=== PATIENT | female | born 1950 | race African-American/Black ===

== ENCOUNTER 2016-06-04 14:08 | Emergency (ER) | payer OTHER ==
[~2016-06-04] VITALS: Ht 167.6 cm; Wt 74.8 kg
[2016-06-04 14:09] VITALS: BP 117/66
[2016-06-04] MEDS ORDERED: FLONASE 0.05%50 MCG NASAL (14:24)
[2016-06-04] MEDS ORDERED: MAXZIDE-25 MG1 EACH PO (14:25)
[2016-06-04] MEDS ORDERED: OMEPRAZOLE20 M1 PO (14:25)
[2016-06-04] MEDS ORDERED: LISINOPRIL5 MG PO (14:25)
[2016-06-04] MEDS ORDERED: ZOCOR20 MG PO (14:25)
[2016-06-04] MEDS ORDERED: NAPROSYN500 MG PO (14:26)
[2016-06-04] MEDS ORDERED: ZYRTEC10 M5 PO (14:26)
[2016-06-04] MEDS ORDERED: NORCO 5-325 TA1 EACH PO (14:35)
[2016-06-04] MEDS ORDERED: FLEXERIL PO (14:35)
== END 2016-06-04 14:52 | disposition home or self-care (01) ==
LOC: ER 14:08
DX: S39.012A Strain of muscle, fascia and tendon of lower back, initial encounter (principal); I10 Essential (primary) hypertension; Z90.710 Acquired absence of both cervix and uterus; Z88.0 Allergy status to penicillin; Z88.1 Allergy status to other antibiotic agents; F17.210 Nicotine dependence, cigarettes, uncomplicated; F10.99 Alcohol use, unspecified with unspecified alcohol-induced disorder; X58.XXXA Exposure to other specified factors, initial encounter; Y93.89 Activity, other specified; Y92.89 Other specified places as the place of occurrence of the external cause; Y99.8 Other external cause status

== ENCOUNTER 2016-08-24 15:00 | Emergency (ER) | payer OTHER ==
[~2016-08-24] VITALS: Ht 167.6 cm; Wt 72.6 kg
--- NOTE | ~2016-08-24 | S ---
[facility] [place] [address] SURGICAL PATH RPT PROCEDURE Name: LAZARA ROSA Room #: DEP [facility].#: [id number] Admission: 08/24/16 Date of : 46 Discharge: 08/24/16 Report #: [id number] Path Case #: [id number] PATHOLOGY REPORT COLLECTION DATE: 08/24/2016 RECEIVED DATE: 08/25/2016 SUBMITTING PHYS: Nelli Pérez M.D. OTHER PHYS: Dr. Hany Chi SPECIMEN(S) RECEIVED: A.Peripheral smear * * * * * * * * * * * * FINAL DIAGNOSIS: Peripheral blood smear: - Marked absolute mature lymphocytosis. (see comment) COMMENT: Overall, the peripheral blood has a marked absolute mature lymphocytosis. The hemoglobin and platelet counts are within the normal reference ranges. The etiology of the findings is unclear based entirely on slide review. It is consistent with the patient's reported history of chronic lymphocytic leukemia / small lymphocytic lymphoma (diagnosed elsewhere). Flow cytometric immunophenotypic analysis may provide additional information to confirm the diagnosis, if clinically indicated. Correlation with clinical history and additional laboratory data is recommended. (CLW:; d/t: 08/25/16) PATHOLOGIST: Nelli Pérez M.D. REPORT ELECTRONICALLY SIGNED BY: Nelli Pérez M.D. DATE/TIME: 08/25/2016 23:54 * * * * * * * * * * * * MICROSCOPIC DESCRIPTION: CBC Data (08/24/16): WBC 55,700 /uL, RBC 3.83, hemoglobin 12.6 g/dL, hematocrit 37.1%, MCV 96.7 fL, MCH 32.8 pg, MCHC 33.9 g/dL, RDW 13.6%, and platelet count 215,000 /uL. Manual white blood cell differential (per pathologist): segs 9%, lymphs 85%, monos 4%, and eos 2%. Peripheral Blood Smear: Cytomorphological examination of the Alas's stained peripheral blood smear confirms the provided data. Red blood cells are normocytic and are without significant anisopoikilocytosis. No schistocytes or microspherocytes are seen. White blood cells are markedly increased in number. They are predominantly lymphocytes that are small, round, and mature appearing with condensed chromatin [address] [address] SURGICAL PATH RPT PROCEDURE Name: LAZARA ROSA Room #: DEP Kb.#: [id number] Admission: 08/24/16 Date of : 46 Discharge: 08/24/16 Report #: [id number] Path Case #: [id number] and scant cytoplasm. Smudge cells are seen. No significant large lymphoid (prolymphocyte) component is identified. Granulocytes are predominantly segmented neutrophils and are without significant dyspoiesis or significant left shift. Monocytes are mature. Platelets are adequate in number and mainly normal in morphology with rare larger platelets noted. CLINICAL HISTORY: 65 year-old woman with leukocytosis/absolute lymphocytosis. Morphologic review of the peripheral blood smear is requested by the [facility] technologist. INITIAL CPT CODE(S): A; NC Professional services performed by [facility] at [facility] [address], [place] [address] Technical services performed by [facility] at [address] [place] [address], [address], [place] [address]. [facility] [address] [place] [address] PHONE: [phone] DIRECTOR: Beto Eduardo M.D. * * * END OF REPORT * * *
--- NOTE | ~2016-08-24 | EKG ---
[place] [address] [place] [address] ELECTROCARDIOGRAM REPORT Name: LAZARA ROSA Room #: [facility] JOSEPHINE Mccain#: [id number] Admission: 08/24/16 Attend Phys: Discharge: Date of : 46 Report #: [id number] THIS REPORT FOR: //name// [facility] ED Test Date: 2016-08-24 Test Time: 15:51:46 Pat Name: LAZARA ROSA Department: Room: Gender: Pharmacologist: CORAZON : 1950 Requested By: Zelda Dawkins Order Number: [id number] MD: Chino Dowling Measurements Intervals [place] Rate: 94 P: 50 [place]: 189 QRS: 31 QRSD: 67 T: 39 QT: 332 QTc: 416 Interpretive Statements Sinus rhythm Atrial premature complexes No previous ECG available for comparison Electronically Signed On 08-24-2016 16:06:27 CDT by Chino Dowling [email or web address] <ELECTRONICALLY SIGNED> By: Chino Dowling MD, [facility] 08/24/16 1606 1551 1551 Chino Dowling MD, FACC /EPI
[~2016-08-24 15:00] MED LIST: FLEXERIL PO; FLONASE 0.05%50 MCG NASAL; LISINOPRIL5 MG PO; MAXZIDE-25 MG1 EACH PO; NAPROSYN500 MG PO; NORCO 5-325 TA1 EACH PO; OMEPRAZOLE20 M1 PO; ZOCOR20 MG PO; ZYRTEC10 M5 PO
[2016-08-24 15:44] LABS: HEMATOCRIT 37.1 % (37.0-47.0); HEMOGLOBIN 12.6 gm/dL (12.0-15.0); MCH 32.8 pg (26.0-34.0); MCHC 33.9 g/dL (28.0-37.0); MCV 96.7 fL (80.0-100.0); PLATELET COUNT 215 thou/uL (150-400); RBC 3.83 mil/uL (4.20-5.00); RDW 13.6 % (10.5-14.5)
[2016-08-24 15:49] LABS: MANUAL DIFF YES
[2016-08-24 15:50] LABS: WBC 55.7 thou/uL (4.0-11.0)
[2016-08-24 15:54] LABS: ANION GAP 11 mmol/L (7-16); BUN 36 mg/dL (7-18); CALCIUM 9.2 mg/dL (8.5-10.1); CHLORIDE 106 mmol/L (98-107); CO2 24 mmol/L (21-32); CREATININE 0.9 mg/dL (0.6-1.0); GLUCOSE 120 mg/dL (74-106); POTASSIUM 4.2 mmol/L (3.5-5.1); SODIUM 141 mmol/L (136-145)
[2016-08-24 16:01] LABS: ALBUMIN 3.9 g/dL (3.4-5.0); ALKALINE PHOSPHATASE 69 U/L (46-116); SGOT 18 U/L (15-37); SGPT 20 U/L (30-65); TOTAL BILIRUBIN 0.7 mg/dL (<0.1-1.0); TOTAL PROTEIN 6.7 g/dL (6.4-8.2); TROPONIN-I < 0.04 ng/mL (<0.04-0.07)
[2016-08-24 16:04] LABS: PROTIME 10.6 Seconds (9.3-11.4)
[2016-08-24 16:10] LABS: MAGNESIUM 1.8 mg/dL (1.8-2.4)
[2016-08-24 16:47] VITALS: BP 115/69
[2016-08-24 17:56] LABS: TOTAL CELL COUNT 100
== END 2016-08-24 18:48 | disposition home or self-care (01) ==
LOC: ER 15:00
PROVIDERS: Emergency Medicine; Physician Assistant
DX: R55 Syncope and collapse (principal); C91.10 Chronic lymphocytic leukemia of B-cell type not having achieved remission; E86.0 Dehydration; I10 Essential (primary) hypertension; F10.99 Alcohol use, unspecified with unspecified alcohol-induced disorder; Z90.710 Acquired absence of both cervix and uterus; Z88.1 Allergy status to other antibiotic agents; Z88.0 Allergy status to penicillin; Z87.891 Personal history of nicotine dependence

== ENCOUNTER 2018-07-09 09:03 | Emergency (ER) | payer OTHER ==
[~2018-07-09] VITALS: Ht 167.6 cm; Wt 68.5 kg
[2018-07-09] MEDS ORDERED: CELEBREX 200 M200 M1 PO (09:14)
[2018-07-09] MEDS ORDERED: TRAMADOL 50 MG50 MG PO (10:21)
[2018-07-09] MEDS ORDERED: ACYCLOVIR 800800 MG PO (10:21)
[2018-07-09] MEDS ORDERED: PREDNISONE 20 M20 MG PO (10:21)
[2018-07-09 10:30] VITALS: BP 148/56
[2018-07-09] MEDS ORDERED: ACETAMINOPHEN-1 EAC1 PO (10:46)
== END 2018-07-09 10:30 | disposition home or self-care (01) ==
LOC: ER 09:03
DX: B02.9 Zoster without complications (principal); C91.10 Chronic lymphocytic leukemia of B-cell type not having achieved remission; I10 Essential (primary) hypertension; Z87.891 Personal history of nicotine dependence; Z88.6 Allergy status to analgesic agent; Z88.1 Allergy status to other antibiotic agents; Z88.0 Allergy status to penicillin; Z90.710 Acquired absence of both cervix and uterus

== ENCOUNTER → 2018-09-10 | Outpatient (CLI) | payer OTHER ==
[~2018-09-10] VITALS: Ht 167.6 cm; Wt 67.1 kg
[~2018-09-10] MED LIST changes: +ACCUNEB SO1.25 MG/1 INH; +ACETAMINOPHEN-1 EAC1 PO; +ACYCLOVIR 800800 MG PO; +AMITRIPTYLINE H10 M3 PO; +CELEBREX 200 M200 M1 PO; +COMPAZINE10 MG PO; +DIPHENHIST50 MG PO; +KLOR-CON 1010 MEQ PO; +LISINOPRIL10 MG PO; +METHADONE HCL5 MG PO; +NEURONTIN 300300 M1 PO; +PREDNISONE 20 M20 MG PO; +PROTONIX40 M1 PO; +TRAMADOL 50 MG50 MG PO; +VIT C PO; +XALATAN2.5 ML OPHTHALMIC; +[UNRECOGNIZED DRUG - OTHER] PO
--- NOTE | ~2018-09-10 | HPC ---
[facility] [place] [address] PAIN MANAGEMENT CONSULTATION Name: LAZARA ROSA Room #: REG [facility] Kalyn#: [id number] Admission: 09/10/18 ������������������ Attend Phys: Jero Prado MD Discharge: ������������������ Date of : 46 Report #: [id number] THIS REPORT FOR: //name// CC: Donato Prado DATE OF SERVICE: 09/10/2018 CHIEF COMPLAINT: Postherpetic neuropathy on the face. HISTORY: The patient is a 68-year-old female who has been referred to the pain clinic for evaluation of an outbreak of herpes zoster involving the left neck and left facial area. She noticed pain in June on the . Notes that the pain started to increase. She was then evaluated and found to have herpes zoster outbreak. She has been referred to the pain clinic to help with pain control. The patient has been taking gabapentin, but found that this is minimally beneficial. She also has used Tylenol No. 3 without significant improvement. She initially noticed some blistering of the rash in the area of her left jaw. It continued to spread down her neck and in the upper shoulder area on the left. She has had some pain involving her ear. Also, has had some pain involving the fingers on her left hand. She has a history of CLL. States that she was having some pain on her shoulder. Underwent an injection with steroids to the right shoulder area. After that, she noticed the onset of the herpes outbreak. Reports that she has been under a significant amount of stress at work. ALLERGIES: PENICILLIN causes swelling, ERYTHROMYCIN, swelling; KEFLEX, swelling, PCN, swelling; LEVAQUIN, nausea and vomiting. CURRENT MEDICATIONS: Calcium 600 mg, pantoprazole 40 mg, simvastatin 20 mg, triamterene/hydrochlorothiazide 37.5/25, lisinopril 5 mg, potassium 10 mEq, fluconazole 50 mcg spray, nasal; Zyrtec 10 mg, Naprosyn 500 mg, vitamin C 1000 mg, multivitamins, Ventolin HFA 2 puffs q.4 hours, prochlorperazine 10 mg t.i.d., gabapentin 100 mg 1-3 tablets t.i.d., Codeine, Tylenol No. 3. PAST MEDICAL HISTORY: 1. Chronic lymphocytic leukemia, hypertension. 2. Dyslipidemia. 3. Allergic rhinitis, seasonal. 4. Chronic GERD. 5. Chronic osteoarthritis. 6. Moderate osteopenia. PAST SURGICAL HISTORY: Tonsils and adenoids 1954, D and C x 2, ; hysterectomy, ovaries [place] 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 REVIEW OF SYSTEMS: Recent weight changes, decreased appetite, fatigue, weakness, headaches, glaucoma/cataracts, chronic sinus problems, loss of appetite, change in bowel movements, frequent headaches, numbness and tingling sensation, depression. LABORATORY DATA: No radiologic imaging is present at the time of our interview. PAIN CLINIC ASSESSMENT/PQRS: 1. History of osteoarthritis in the spine. The patient is not being treated for rheumatoid arthritis. 2. Height 5 feet 6 inches, weight 148 pounds, BMI is 23.9. 3. VITAL SIGNS: Blood pressure 137/78, pulse 75, respiratory rate 14, room air saturation is 100%. 4. Pain intensity 10/23. 5. Fall risk. The patient has not fallen in the last 3 months. 6. Blood thinner. The patient is not on a blood thinning medication. 7. Hypertension. The patient is being treated for hypertension. Opioids greater than 6 weeks. 8. Risk assessment tool, low for opioid use. 9. Functional assessment tool. 10. Recreational drug use. 11. Alcohol: The patient drinks alcoholic beverage on occasion. PHYSICAL EXAMINATION: GENERAL: The patient is a well-developed, well-nourished black female, appears her stated age. She is alert and oriented x 3. Her affect is appropriate. Speech is fluent. HEENT: Normocephalic, atraumatic. Extraocular eye muscles intact. Sclerae nonicteric. Mucous membranes are moist. NECK: Without adenopathy or JVD. The patient is wearing glasses. The patient has an area on her left neck involving the left jaw lateral portion of her neck and anterior portion of her clavicle area, which is discolored. States that these areas are hypersensitive to the touch. Also, complains of some numbness and tingling down into her left hand and fingers. HEART: Regular rate. ABDOMEN: Nontender. Bowel sounds present. EXTREMITIES: Lower Upper extremity muscle strength on the right, judged to be 5-/5 for the major muscle groups. Left side, the patient has some decreased 4+ muscle strength with some numbness and tingling. The patient without significant scoliosis, kyphosis or lordosis. Lower extremity muscle strength is judged to be 5/5 for the major muscle groups in the lower extremity. IMPRESSION: 1. Postherpetic neuralgia involving the left neck, the left face, jaw, neck, [facility] [address] [place] [address] PAIN MANAGEMENT CONSULTATION Name: LAZARA ROSA Room #: REG [facility]#: [id number] Admission: 09/10/18 ������������������ Attend Phys: Jero Prado MD Discharge: ������������������ Date of : 46 Report #: [id number] anterior clavicular area. 2. Chronic lymphocytic leukemia. 3. Hypertension. 4. Dyslipidemia. 5. Allergic rhinitis, seasonal. 6. Gastroesophageal reflux disease. 7. Osteoarthritis. 8. Moderate osteopenia. RECOMMENDATIONS: We discussed treatment options with the patient. At this juncture, we will try a conservative approach. We will have the patient try methadone 5 mg 1 p.o. b.i.d. She will also try amitriptyline. She will increase this medication as directed. Oftentimes, shooting pain, burning pain can be helped with use of amitriptyline. She will also try the methadone medication. If these 2 medications were not successful, we will consider possibility of a stellate ganglion block with local anesthetic to help provide a sympathectomy to help calm down the pain and discomfort. She will follow up in the near future. She will call us if she has any concerns. We would like to thank you for letting us participate in her care. We hope she continues to improve. ��������������������������������������������� ���������������������������������������� By: ��������������������������������������������� 2232 0516 Jero Prado MD /mp
[2018-09-10 09:10] VITALS: BP 137/78
--- NOTE | 2018-09-10 09:39 | NUR ---
Pain Clinic Assessment: 1. History of Osteoarthritis: SPINE History of Rheumatoid Arthritis: NONE 2. Height: 5 ft. 6 in. 167.6 cm. Weight: 148.0 lb. oz. 67.132 kg. Patient's BMI: 23.9 3. Vital Signs: BP: 137/78 Pulse: 75 Resp: 14 Temp: 02 Sat: 100 ECG Mon: 4. Pain Intensity: 8 5. Fall Risk: Dizziness: N Needs help standing or walking: N Fallen in the last 3 months: N Fall risk comments: 6. Patient on Blood Thinner: None 7. History of Hypertension: Y 8. Opioid Therapy greater than 6 weeks: N Opiate Contract Signed: 9. Risk Assessment Tool Provided: 10. Functional Assessment Tool: 11. Recreational Drug Use: Never Drug Type: Tobacco Use: Former Smoker Tobacco Type: Amount or Packs/day: How Many Years: Alcohol Use: Yes Frequency: Daily Quant: 1 A DAY
== END ==
LOC: PAIN 06:47
DX: C91.90 Lymphoid leukemia, unspecified not having achieved remission (principal); G51.9 Disorder of facial nerve, unspecified; E78.5 Hyperlipidemia, unspecified; K21.9 Gastro-esophageal reflux disease without esophagitis; M85.88 Other specified disorders of bone density and structure, other site; I10 Essential (primary) hypertension; M19.90 Unspecified osteoarthritis, unspecified site; Z79.891 Long term (current) use of opiate analgesic; Z88.0 Allergy status to penicillin; Z88.1 Allergy status to other antibiotic agents; Z88.5 Allergy status to narcotic agent; Z88.8 Allergy status to other drugs, medicaments and biological substances; Z79.899 Other long term (current) drug therapy

== ENCOUNTER → 2018-10-08 | Outpatient (CLI) | payer OTHER ==
[~2018-10-08] VITALS: Ht 167.6 cm; Wt 66.0 kg
[~2018-10-08] MED LIST changes: +AMITRIPTYLINE H25 M2 PO
[2018-10-08 08:11] VITALS: BP 127/66
--- NOTE | 2018-10-08 08:23 | NUR ---
Pain Clinic Assessment: 1. History of Osteoarthritis: SPINE History of Rheumatoid Arthritis: NONE 2. Height: 5 ft. 6 in. 167.6 cm. Weight: 145.4 lb. oz. 65.953 kg. Patient's BMI: 23.5 3. Vital Signs: BP: 127/66 Pulse: 110 Resp: 16 Temp: 02 Sat: 97 ECG Mon: 4. Pain Intensity: 3 5. Fall Risk: Dizziness: N Needs help standing or walking: N Fallen in the last 3 months: N Fall risk comments: 6. Patient on Blood Thinner: None 7. History of Hypertension: Y 8. Opioid Therapy greater than 6 weeks: N Opiate Contract Signed: 9. Risk Assessment Tool Provided: 10. Functional Assessment Tool: 11. Recreational Drug Use: Never Drug Type: Tobacco Use: Former Smoker Tobacco Type: Amount or Packs/day: How Many Years: Alcohol Use: Yes Frequency: Quant:
--- NOTE | 2018-10-20 17:05 | HPC ---
[facility] [place] [address] PAIN MANAGEMENT CONSULTATION Name: LAZARA ROSA Room #: REG [facility] Kb.#: [id number] Admission: 10/08/18 ������������������ Attend Phys: Jero Prado MD Discharge: ������������������ Date of : 46 Report #: [id number] THIS REPORT FOR: //name// CC: Donato Prado DATE OF SERVICE: 10/08/2018 CHIEF COMPLAINT: "The shingles pain is better." HISTORY: The patient is a 68-year-old female who has been seen in the Pain Clinic evaluated because of an outbreak of herpes zoster. It involves her left facial area. This started on 07/07/2018. She has continued to suffer from this problem. She was provided with amitriptyline and methadone at the last visit. She feels that taking the amitriptyline has been helpful. Her pain has decreased to 3. She notes that it was originally 8. She is having less of the shooting sensation. She elected not to take the methadone medication at this juncture since she has gotten a reasonable amount of improvement with Elavil alone. As you may recall, she has chronic lymphocytic leukemia. Still has some sensory changes in her left hand on the same side that the shingles has erupted. ALLERGIES: PENICILLIN causes swelling, ERYTHROMYCIN -- swelling, KEFLEX -- swelling, PENICILLIN -- swelling, LEVAQUIN -- nausea and vomiting. CURRENT MEDICATIONS: Calcium 600 mg, pantoprazole 40 mg, simvastatin 20 mg, triamterene/hydrochlorothiazide 37.5/25, lisinopril 5 mg, potassium 10 mEq, fluconazole 50 mcg spray, nasal, Zyrtec 10 mg, Naprosyn 500 mg, vitamin C 1000 mg, multivitamins, Ventolin HFA 2 puffs q. 4 hours, prochlorperazine 10 mg t.i.d., gabapentin 100 mg 1-3 tablets t.i.d., Codeine, Tylenol No. 3. PAIN CLINIC ASSESSMENT/PQRS: 1. History of osteoarthritis of the spine. The patient is not being treated for rheumatoid arthritis. 2. Height 5 feet 6 inches, weight 145 pounds, BMI is 23.5. 3. Vital Signs: Blood pressure 127/66, pulse 111, respiratory rate 16, room air saturation 95%. 4. Pain intensity 10 down from 810. 5. Fall history: The patient has not fallen since we saw her last. 6. Blood thinner. The patient is not on a blood thinning medication. 7. Hypertension. The patient is being treated for hypertension. 8. Opioids greater than 6 weeks. The patient is not on an opioid on a regular basis. 9. Risk assessment tool, low for opioid use. 10. Functional assessment tool, . 11. Recreational drug use. The patient denies. 12. Alcohol: The patient denies use of alcoholic beverages. [address] [address] PAIN MANAGEMENT CONSULTATION Name: LAZARA ROSA Room #: REG [facility] Mccain#: [id number] Admission: 10/08/18 ������������������ Attend Phys: Jero Prado MD Discharge: ������������������ Date of : 46 Report #: [id number] PHYSICAL EXAMINATION: GENERAL: The patient is a well-developed, well-nourished black female, appears her stated age. She is alert and oriented x 3. Her affect is appropriate. Speech is fluent. HEENT: Normocephalic, atraumatic. Extraocular eye muscles intact. Sclerae nonicteric. Mucous membranes are moist. NECK: Without adenopathy or JVD. The patient is wearing glasses. Neck area on the left and in the area of the left jaw and left clavicular area remained somewhat discolored secondary to the outbreak of zoster. These areas are still hypersensitive to touch, but decreased since the last visit. Continues to have some numbness and tingling down into her hand and fingers. HEART: Regular rate. ABDOMEN: Nontender. Bowel sounds present. EXTREMITIES: Upper extremity muscle strength is judged to be 5-/5 on the major muscle groups. This is on the right side. Left side, the patient has some decreased function, numbness and tingling 4+/5 muscle strength. The patient is without significant scoliosis, kyphosis or lordosis. Lower extremity muscle strength is judged to be 5/5 for the major muscle groups in the lower extremity. IMPRESSION: 1. Post-herpetic neuralgia involving the left neck, face, jaw and shoulder area. 2. Chronic lymphocytic leukemia. 3. Hypertension. 4. Dyslipidemia. 5. Allergic rhinitis, seasonal. 6. Gastroesophageal reflux disease. 7. Osteoarthritis. 8. Moderate osteopenia. RECOMMENDATIONS: We discussed treatment options with the patient. Overall, she feels that things are going better. She is having less pain, less of the shooting pain. She is rating her pain as a 3/10. This is quite a bit better than it was. She continues to work. She gave some thought to the Methadone. She elected not to try that medication. Feels that the amitriptyline is helpful and she would like to keep the number of medications that she takes too have been minimal. She overall feels that things are going reasonably well. We can increase her Elavil medication. We will have her take 25 mg at bedtime, up from 20 mg. She will call us if she has any concerns. Also, the possibility of using methadone, which has ability to help with neuropathic pain, more so than other opioid medications is still an option. She will call us if she has any concerns. Overall, she feels that things are going reasonably well. We had discussed the possibility of a stellate ganglion block. Again now the things are improving, we may not need to perform that modality. [facility] [address] [place] [address] PAIN MANAGEMENT CONSULTATION Name: LAZARA ROSA [id number] Admission: 10/08/18 ������������������ Attend Phys: Jero Prado MD Discharge: ������������������ Date of : 46 Report #: [id number] We would like to thank you for letting us participate in her care. We hope she continues to improve. ��������������������������������������������� <ELECTRONICALLY SIGNED> ���������������������������������������� By: Jero Prado MD ��������������������������������������������� 10/20/18 1705 0910 1533 Jero Prado MD /nt
== END ==
LOC: PAIN 06:39
DX: B02.29 Other postherpetic nervous system involvement (principal); C91.10 Chronic lymphocytic leukemia of B-cell type not having achieved remission; E78.5 Hyperlipidemia, unspecified; I10 Essential (primary) hypertension; K21.9 Gastro-esophageal reflux disease without esophagitis; M19.90 Unspecified osteoarthritis, unspecified site; M85.80 Other specified disorders of bone density and structure, unspecified site; Z88.0 Allergy status to penicillin; Z88.2 Allergy status to sulfonamides; Z88.8 Allergy status to other drugs, medicaments and biological substances; Z79.899 Other long term (current) drug therapy

== ENCOUNTER 2018-12-14 05:03 | Inpatient (IN) | payer OTHER ==
[~2018-12-14] VITALS: Ht 152.4 cm; Wt 66.2 kg
[2018-12-14] VITALS (8 sets, daily range): BP systolic 79–160; BP diastolic 41–97
[2018-12-14 05:35] LABS: HEMATOCRIT 38.3 % (37.0-47.0); HEMOGLOBIN 11.7 gm/dL (12.0-15.0); MCH 27.3 pg (26.0-34.0); MCHC 30.6 g/dL (28.0-37.0); MCV 89.5 fL (80.0-100.0); PLATELET COUNT 326 thou/uL (150-400); RBC 4.28 mil/uL (4.20-5.00)
[2018-12-14 05:39] LABS: WBC 61.8 thou/uL (4.0-11.0)
[2018-12-14 05:44] LABS: ANION GAP 12 mmol/L (7-16); BUN 12 mg/dL (7-18); CALCIUM 8.8 mg/dL (8.5-10.1); CHLORIDE 101 mmol/L (98-107); CO2 24 mmol/L (21-32); CREATININE 0.9 mg/dL (0.6-1.0); GLUCOSE 168 mg/dL (74-106); POTASSIUM 3.2 mmol/L (3.5-5.1); SODIUM 137 mmol/L (136-145)
[2018-12-14 05:54] LABS: ALBUMIN 3.4 g/dL (3.4-5.0); SGOT 15 U/L (15-37); SGPT 13 U/L (30-65); TOTAL BILIRUBIN 0.3 mg/dL (<0.1-1.0); TOTAL PROTEIN 6.7 g/dL (6.4-8.2); TROPONIN-I <0.06 ng/mL (<0.06)
[2018-12-14 07:04] LABS: APTT 29.1 Seconds (24.5-32.8); PROTIME 10.4 Seconds (9.3-11.4)
[2018-12-14 08:25] LABS: ABSOLUTE NEUTROPHILS 5.6 thou/uL (1.4-8.2)
[2018-12-14 08:32] LABS: ANISOCYTOSIS 1+
[2018-12-14 10:10] LABS: CLARITY TURBID; COLOR RED; SOURCE LEFT CHEST; TOTAL VOLUME 57 mL
[2018-12-14 10:30] LABS: ATYPICAL MONONUCLEARS 19 %
[2018-12-14 10:33] LABS: BF NUCLEATED CELLS 2824; BF RBC 41330
[2018-12-14 11:51] LABS: BF MACROPHAGE 28; BF NEUTROPHILS 2
--- NOTE | 2018-12-14 14:11 | EKG ---
[address] [address] ELECTROCARDIOGRAM REPORT Name: LAZARA ROSA Room #: 424-P ADM IN M.R.#: [id number] Admission: 12/14/18 Attend Phys: Sherry Rubio Discharge: Date of : 46 Report #: [id number] THIS REPORT FOR: //name// 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
--- NOTE | 2018-12-14 18:09 | NUR ---
Assumed patient care at 0730. Patient came from ER per cart in sable condition. Patient left immediately upon arrival via wheelchair for Thoracentesis in IR. She returned to floor one hour later Post op vital signs are stable. Per Radiology report 2.4 liters of fluid was drained today, sample was sent to lab for testing. Admission, History and Assessment completed. Lunch given, well tolerated. Patient continues on 6 liters of Oxygen oer GA. consult called to Dr Schmidt, message left. Daughter at bedside assisting patient with care. No dizziness, no SOA noted. Will continue to monitor.
[2018-12-15 00:02] VITALS: BP 91/44
--- NOTE | 2018-12-15 03:40 | NUR ---
PT IS ALERT AND ORIENTED. VERY SOFT SPOKEN. SATTING OKAY AT >98% ON /. PT BP HAS BEEN LOW. PT DENIES ANY DIZZINESS. 250ML BOLUS GIVEN. BP SLIGHTLY UP. NURSE PRACTIONER UPDATED. PT CONTINUES TO BE MONITORED THRO SHIFT.
[2018-12-15 03:59] VITALS: BP 100/54
[2018-12-15 07:35] VITALS: BP 94/60
[2018-12-15 09:23] LABS: SOURCE CHEST
[2018-12-15 17:09] VITALS: BP 97/52
[2018-12-15 19:17] VITALS: BP 107/66
--- NOTE | 2018-12-15 19:47 | NUR ---
Assumed care of pt at 0700. Pt a&ox4. C/o headahce during shift. Prn pain meds given and pain relief obtained. Pt is now on room air. SBA. States she feels better. Call light within reach. Family at bedside.
[2018-12-16 04:16] VITALS: BP 112/70
--- NOTE | 2018-12-16 05:04 | NUR ---
pt alert and oriented. denies pain, nausea,and vomiting. on RA. denies SOA. Bath given. Assessment as documented. Pt currently stable. Will continue to follow POC.
[2018-12-16 06:06] LABS: MCH 27.5 pg (26.0-34.0)
[2018-12-16 06:08] LABS: HEMATOCRIT 32.8 % (37.0-47.0); MCHC 30.6 g/dL (28.0-37.0); RBC 3.64 mil/uL (4.20-5.00); RDW 15.4 % (10.5-14.5)
[2018-12-16 06:17] LABS: WBC 50.9 thou/uL (4.0-11.0)
[2018-12-16 10:43] VITALS: BP 134/81
--- NOTE | 2018-12-16 11:29 | NUR ---
Assumed care of pt at 0700. Pt a&ox4. Denies pain. Lung sounds clear. Room air. No SOB. Will discharge to home.
[2018-12-16 16:10] LABS: BODY FLUID ALBUMIN 3.1 g/dL (()); BODY FLUID AMYLASE 111 U/L (()); BODY FLUID GLUCOSE 88 mg/dL (()); BODY FLUID LDH 202 IU/L (()); BODY FLUID PROTEIN 4.3 g/dL (())
--- NOTE | 2018-12-23 15:07 | PATH ---
[facility] [address] PATHOLOGY RPT PROCEDURE Name: LAZARA ROSA Room #: 440-P DIS IN M.R.#: [id number] Admission: 12/14/18 Date of : 46 Discharge: 12/16/18 Report #: [id number] Path Case #: [id number] Note [facility] Accession Number: [id number] TESTS RESULT FLAG UNITS REF RANGE LAB Clinician Provided Cytology Information No. of containers..01 Other (Miscellaneous) Source: [A] 01 LT PLEURAL FLUID DIAGNOSIS: [A] 02 LEFT PLEURAL FLUID POSITIVE FOR MALIGNANT CELLS. METASTATIC ADENOCARCINOMA IS PRESENT. REACTIVE MESOTHELIAL CELLS ARE PRESENT. CELLULAR DEGENERATION IS PRESENT. THIS INTERPRETATION INCLUDES EVALUATION OF A CELL BLOCK. Comment: Examination shows malignant cells forming glands within the pleural fluid. Properly controlled immunohistochemical stains are performed. The malignant cells show strong nuclear reactivity to TTF1 and membranous reactivity to Dung-EP4, HMBE and VIKY. B72.3 is non-reactive. The cells of interest are non-reactive to calretinin, WT-1 (nonspecific background and membranous reactivity present)and ER. Based on the staining pattern the tumor most likely represents a metastatic adenocarcinoma likely of lung origin. The non-reactive stains argue against neoplasms of mesothelial or breast origin. This case was coreviewed by Dr. Nelli Pérez. Findings of this case are discussed with Dr. Elisabet Lopez at 10:22 AM on 12/16/18. Pathologist ICD10: 02 J91.0 Addendum: 02 Special studies report received from [facility], [address] [place] [address], [address], [place], [address], on case [id number], labeled with their number [id number], dated 12/21/2018. . PD-L1 Immunohistochemistry Analysis . Body Site: Chest- Fluid. Specimen Received: 1 paraffin block labeled "[id number]". . Clinical History Positive for malignant cells. Metastatic adenocarcinoma is present, Reactive mesothelial cells are present. Cellular degeneration is present. . Results Table PD-L1 - KEYTRYURIDIA (R) Tumor Proportion Interpretation [id number] 50% High Expression . . [address] [address] PATHOLOGY RPT PROCEDURE Name: LAZARA ROSA Room #: 440-P DIS IN M.R.#: [id number] Admission: 12/14/18 Date of : 46 Discharge: 12/16/18 Report #: [id number] Path Case #: [id number] Reference Ranges PD-L1 protein expression is determined by using the Tumor Proportion Score (TPS), which is the percentage of at least 100 viable tumor cells showing complete or partial membrane staining at any intensity. . TPS less than 1%: No Expression . TPS greater than or equal to 1%: Expression - Eligible for KEYTRUDA (R) (pembrolizumab) monotherapy. . TPS greater than or equal to 50%: High Expression - Eligible for KEYTRUDA (R) (pembrolizumab) monotherapy. . Note: PD-L1 expression level TPS greater than or equal to 50% may be of interest but does not determine eligibility for KEYTRUDA monotherapy. . . at [employer] Anuel Flores M.D. . . Tests PD-L1 IHC Analysis . Intended Use: PD-L1, 22C3 pharmDx is FDA approved for in vitro diagnostic use as a qualitative immunohistochemical assay using Monoclonal Mouse Anti-PD-L1, Clone 22-C3 intended for use in the detection of PD-L1 in formalin-fixed paraffin-embedded (FFPE) non-small cell lung cancer (NSCLC) using the [employer] EnVision FLEX visualization system on [employer] Link 48. PD-L1 22C3 pharmDx is indicated as an aid in identifying NSCLC patients for treatment with KEYTRUDA (pembrolizumab) monotherapy. See the KEYTRUDA product label for specific clinical circumstances guiding PD-L1 testing. PD-L1, 22C3 pharmDx is a trademark of [employer], an [employer]. . References: John TS, Mariscal Y-L, Jack I, et al: Pembrolizumab versus chemotherapy for previously untreated, FL-B3-waylxpfwos, locally advanced or metastatic fje-efvhf-xjcw lung cancer (KEYNOTE-042): a randomized, open-label, controlled, phase 3 trial. Lancet 2018June 17; Online18 1-12. . Gilbert RS, Conner P, Kiki D-W, et al: Pembrolizumab versus docetaxel for previously treated, AS-S1-pkccxoat, advanced uam-bwboz-erei lung cancer (KEYNOTE-010): a randomized controlled trial. Lancet 2015 Mar 03; Online(05) 8094-7. . Christopher ALVAREZ, Rika NA, Debbie R, et al: Pembrolizumab for the Treatment of [address] [address] PATHOLOGY RPT PROCEDURE Name: LAZARA ROSA Room #: 440-P [facility] IN M.R.#: [id number] Admission: 12/14/18 Date of : 46 Discharge: 12/16/18 Report #: [id number] Path Case #: [id number] Iyd-Yafrq-Yopg Lung Cancer. N Engl J Med 2014August 03; 372:5941-3852. . Please contact [employer] for additional references. . Disclaimer This Test was performed by [facility] at [address], [address]. [facility] is a business unit of [employer] a wholly-owned subsidiary of [employer]. . . Any image(s) that accompany this report is/are a warehouse representative image(s) only and should not be used to render a diagnosis. . This interpretation is contingent on the specimen and the clinical information received. . Known positive cells or tissues are employed with each test and examined to ensure positivity. Positive and negative internal controls, if present, react appropriately. . This analysis is an adjunct to the evaluation of the referring physician and does not represent a final diagnosis. . The immunohistochemistry tests performed at [employer] were validated on tissue fixed in 10% neutral buffered formalin. The performance characteristics of the tests performed on tissue processed in other fixatives is not known. . This assay has not been validated on decalcified tissues. Results should be interpreted with caution if this specimen was decalcified given the likelihood of decreased staining or false negativity on decalcified specimens. . A complete copy of the report is on file. . Professional services performed by [employer]. at [address], [place] [address]. Technical services performed by [employer], [employer] at [address], [place] [address]. . (IUV:amj 12/21/2018) . AZJ/12/21/2018 Addendum Electronically Signed by Rayne Rivera MD, Pathologist Addendum #2: Special studies report received from [facility], [address] [address] PATHOLOGY RPT PROCEDURE Name: LAZARA ROSA Hermelindo Room #: 440-P [facility] IN [facility].#: [id number] Admission: 12/14/18 Date of : 46 Discharge: 12/16/18 Report #: [id number] Path Case #: [id number] [facility] [address], [place], [address], on case [id number], labeled with their number [id number], dated 12/22/2018. . Fluorescence in situ Hybridization (FISH) Report ALK Analysis . RESULT: No Evidence of ALK Gene Rearrangement detected by FISH nuc catalina(ALKx3 approximately 6)(21/50) . Specimen Type: Left Pleural Fluid . Specimen Fixative Type: Not Provided . Indication for Study: Metastatic Adenocarcinoma from Lung Primary . INTERPRETATION: Fluorescence in situ hybridization (FISH) analysis was performed on paraffin embedded tissue using an ALK Break Apart DNA probe (FDA approved kit, [employer]) for the detection of rearrangements involving the ALK gene. . Fifty interphase nuclei were examined and no evidence of ALK specific gene rearrangement was detected. However, 42.0% cells showed one or more additional fusion signals for the ALK DNA sequence located at 2p; likely representing an aneuploidy population with extra copies of chromosome 2/2p ALK region. . Genetic changes other than those assayed here cannot be ruled out on the basis of this testing. Correlation with clinical and pathological findings is suggested for a complete interpretation of the results. . See FISH report [id number] for further information. See report [id number] for further information. See report [id number] for further information. See Molecular report [id number] for further information. . at [employer], [employer] Ravinder Perez, Ph.D., PATRICK RUIZ (ABB) Director of Cytogenetics and Molecular Oncology . Methodology: FISH was performed using ALK Break Apart FISH Probe Kit (FDA approved, [employer] A minimum of fifty invasive tumor cells were examined from areas that were delineated by a Pathologist from a corresponding H/E slide. A classification of each nucleus as positive or negative is recorded according to outfitter cabin's instruction. The results are calculated as a percentage of the total positive cells to total cell analyzed. The normal cutoff was established as 15% using NSCLC FFPE tissue [address] [address] PATHOLOGY RPT PROCEDURE Name: LAZARA ROSA Room #: 440-P DIS IN M.R.#: [id number] Admission: 12/14/18 Date of : 46 Discharge: 12/16/18 Report #: [id number] Path Case #: [id number] specimen. A negative result is reported when a sample with <15% rearranged cells and a positive result is defined when a sample shown greater than or equal to 15% cells with ALK gene rearrangements. A result is considered uninformative when there are less than 50 invasive tumor cells for FISH analysis. . Intended Use: The ALK Break Apart FISH Probe procedure is a qualitative test to detect rearrangements involving the ALK gene via fluorescence in situ hybridization (FISH) in FFPE NSCLC tissue specimens to aid in identifying those patients eligible for treatment with XALKOR (crizotinib). It is intended for use only on 10% neutral buffered formalin fixed paraffin-embedded NSCLC tissue. The optimal fixation time for tissue is 6-48 hours. The test is for prescription use only. . Disclaimer [employer] is a business unit of [employer], [employer], a wholly-owned subsidiary of [employer]. . Professional Component performed by [facility] [employer] [address], [address] Technical Component performed at [address] [place] [address], [place], [address] . . This assay has not been validated on decalcified tissues. Results should be interpreted with caution if this specimen was decalcified given the likelihood of false negativity on decalcified specimens. . Any image(s) that accompany this report is/are a warehouse representative image(s) only and should not be used to render a diagnosis. A complete copy of the report is on file. . Professional services performed by [employer] at [facility] [employer] [facility] [address], [place], [address]. Technical services performed by [employer] at [address] [facility] [address], [place] [address]. . (IUV:amj 12/23/2018) . . . . . Special studies report received from [employer], [facility] [address], [place], [address], on case [id number], labeled with their number [id number], dated 12/22/2018. [facility] [address] PATHOLOGY RPT PROCEDURE Name: LAZARA ROSA Room #: 440-P [facility] IN M.R.#: [id number] Admission: 12/14/18 Date of : 46 Discharge: 12/16/18 Report #: [id number] Path Case #: [id number] . Fluorescence in situ Hybridization (FISH) Report TargetGene Analysis . RESULT: Negative for ROS1 gene rearrangement . Specimen Type: Pleural Fluid . Indication for Study: Metastatic Adenocarcinoma Lung Primary . INTERPRETATION: Fluorescence in situ hybridization (FISH) analysis was performed on this patient's paraffin embedded tissue specimen using a dual color break apart DNA probe for ROS1. . One hundred interphase nuclei were examined and no evidence of a ROS1 gene specific rearrangement (split signal pattern) were detected. . Genetic changes other than those assayed here cannot be ruled out on the basis of this testing. Correlation with clinical and other pathological findings is suggested for a complete interpretation of these results. . See report [id number] for further information. See report [id number] for further information. See report [id number] for further information. See Molecular report [id number] for further information. . The following TargetGene FISH analysis was performed on this patient's specimen: . Probe Detection Parameters Result ISCN ROS1 (6q22) Detects a rearrangement Not Detected nuc catal[place](3'ROS1, of the ROS1 gene 5'ROS1)x2(3'ROS1 con 5'ROS1x2)(100) . . at [employer] Ravinder Perez, Ph.D., PATRICK RUIZ (ABB) Director of Cytogenetics and Molecular Oncology . Methodology: The patient specimen is processed onto a glass slide. Fluorescent DNA probe(s) is(are) applied to the cells on the slide under conditions of denaturation followed by hybridization. Stringency washes are applied and the slide is subsequently counterstained. A minimum of 100 interphase nuclei are analyzed unless otherwise indicated above. . References: [address] [address] PATHOLOGY RPT PROCEDURE Name: LAZARA ROSA Room #: 440-P [facility] IN M.R.#: [id number] Admission: 12/14/18 Date of : 46 Discharge: 12/16/18 Report #: [id number] Path Case #: [id number] Imtiaz Pack, Tiffany MCGEE, et al. ROS1 rearrangements define a unique molecular class of lung cancers. J Clin Oncol, 2012;30:863-70. . Tiffany Leiva, Manny Y-J, et al. Crizotinib in ROS1-rearranged eyt-vudbv-vsmh lung cancer. N Engl J Med, 2014;371:1963-71 . Disclaimer [facility] is a business unit of [employer], [employer], a wholly-owned subsidiary of [employer]. . Professional Component performed by [address] [place] [address], [address]. Technical Component performed at [address] [place] [address], [place], [address] . . This assay has not been validated on decalcified tissues. Results should be interpreted with caution if this specimen was decalcified given the likelihood of false negativity on decalcified specimens. . Any image(s) that accompany this report is/are a warehouse representative image(s) only and should not be used to render a diagnosis. . This test was developed and its performance characteristics determined by [employer] It has not been cleared or approved by the Food and Drug Administration. . A complete copy of the report is on file. . Professional services performed by [employer]. at [address] [place] [address], [address]. Technical services performed by [employer] at [address] [place] [address], [place] [address], [place] [id number]. . (IUV:amj 12/23/2018) . . . . . Special studies report received from [facility], [address] [place] [address], [place], [address], on case [id number], labeled with their number [id number], dated 12/23/2018. . EGFR Gene Mutation Analysis . INTERPRETATION: [address] [address] PATHOLOGY RPT PROCEDURE Name: LAZARA ROSA Room #: 440-P DIS IN M.R.#: [id number] Admission: 12/14/18 Date of : 46 Discharge: 12/16/18 Report #: [id number] Path Case #: [id number] Negative for EGFR Mutation. . Indication for Study: Metastatic Lung Adenocarcinoma . Specimen Site and Type: Paraffin-Embedded Tissue-Chest Fluid . Nucleotide Change: . Amino Acid Change: . Comments: No mutations were detected within the analyzed region of the EGFR gene in the sample provided for analysis. Less than 5% of non-small cell lung carcinoma patients without identifiable mutations are reported to be responsive to EGFR tyrosine kinase inhibitor therapies. Results should be interpreted in conjunction with clinical and other laboratory findings for the most accurate interpretation. . A subgroup of non-small cell lung cancer (NSCLC) patients has shown clinical responsiveness to the epidermal growth factor receptor (EGFR) inhibitors gefitinib (IRESSA) and erlotinib (Tarceva), including never smokers, individuals of ethnicity, and those with adenocarcinoma histology. In the majority of patients with highly responsive tumors, the tumor contains a somatic mutation within the EGFR tyrosine kinase domain. The presence of a somatic EGFR mutation is significantly associated with response to gefitinib and erlotinib, and is strongly predictive of prolonged survival in NSCLC patients. . T790M mutation had been tested but was not detected in this submitted specimen. . This assay is able to detect 5% mutation in a background of wild-type DNA. . See report [id number] for further information. See FISH report [id number] for further information. See report [id number] for further information. See report [id number] for further information. . . at [employer], [employer] Lv Canales, Ph.D., JAI DABMG, DABCC, DLMannie, M([facility])cm, LUIS([facility])cm . Methodology: Genomic DNA was isolated from the provided tumor specimen. Exons 18 through 21 of the EGFR gene were subjected to SNaPShot multiplex PCR and primer extension for mutation detection. . [address] [address] PATHOLOGY RPT PROCEDURE Name: LAZARA ROSA Room #: 440-P [facility] IN M.R.#: [id number] Admission: 12/14/18 Date of : 46 Discharge: 12/16/18 Report #: [id number] Path Case #: [id number] Table: This Assay Can Detect the Following Mutations EGFR EGFR Codon Mutation Approximate % of all EGFR Exon Mutations 18 E709 E709K,E709Q 1% G719 G719S,G719C,G719A,G719D 2-5% 19 Insertions 18bp ins 1% Deletions 9,12,15,18,24 bp del 45% 20 Insertions 3,6,8,12 bp ins 5-10% S768 S768I 1-2% R776 R776C <1% T790 T790M 2% 21 L858 L858R 40% A859 A859T <1% L861 L861Q,L861R 2-5% * This Assay does not distinguish between the 18bp insertion and deletions at nucleotide position 2235 and 2237 . References: 1. Justin PA, Urbano JA, Prosper VALLEJO. Epidermal Growth Factor Receptor Mutations in Rub-Doznh-Xjwz Lung Cancer: Implications for Treatment and Tumor Biology. J. Clin. Oncol. 2005; 23:3803-5858. 2. Briana MCCARTHY et al. A Platform for Rapid Detection of Multiple Oncogenic Mutations with Relevance to Targeted Therapy in Ose-Crjnq-Wufo Lung Cancer. J. Mol. Diagn. 2011;13(1):74-84. . Disclaimer This Test was performed by [employer], [employer] at [address], [facility] [address], [place], [address]. [facility] is a business unit of [employer] a wholly-owned subsidiary of [employer]. . . Any image(s) that accompany this report is/are a warehouse representative image(s) only and should not be used to render a diagnosis. . This test was developed and its performance characteristics determined by [employer], [employer] It has not been cleared or approved by the Food and Drug Administration. . A complete copy of the report is on file. . Professional services performed by [employer]. at [address] [place] [address]., [facility] [address], [place] [address]. Technical services performed by [employer] at [address] [facility] [address] [facility] [address], [place] [address]. . (IUV:amj 12/23/2018) [address] [address] PATHOLOGY RPT PROCEDURE Name: LAZARA ROSA Room #: 440-P DIS IN M.R.#: [id number] Admission: 12/14/18 Date of : 46 Discharge: 12/16/18 Report #: [id number] Path Case #: [id number] . . AZJ/12/23/2018 Addendum Electronically Signed by Rayne Rivera MD, Pathologist Addendum #3: Special studies report received from [facility], [address] [place] [address], [address], [place], [address], on case [id number], labeled with their number [id number], dated 12/23/2018. . BRAF Mutation Detection by PCR-SNAPSHOT Analysis . INTERPRETATION: Negative for a V600 BRAF mutation . Indication for Study: Metastatic Lung Adenocarcinoma . Specimen Type: Paraffin-Embedded Tissue-Chest Fluid . Comments: Somatic mutations in the BRAF oncogene are frequently found in human cancers, such as melanoma (approximately 40-60%), colorectal (approximately 5-15%), lung (approximately 1-3%), ovary (approximately 35%), thyroid carcinomas (approximately 45%) and hairy cell leukemia (approximately 100% in limited studies). Over 90% of the mutations are the V600E (1799T>A) mutation, but other V600 mutations have been reported. A negative result does not rule out the presence of other non-V600 mutations. Correlation with other clinical findings is needed for the most accurate interpretation. . This test detects multiple V600 mutations in BRAF, including V600E, V600K and other V600 variants. . See report [id number] for further information. See FISH report [id number] for further information. See report [id number] for further information. See Molecular report [id number] for further information. . Analytical Results: Assay Type Detection Parameters Result BRAF Gene Mutation Exon 15 V600 Negative . at [employer] Lv Canales, Ph.D., JAI DABMG, DABCC, DLMcm, M(ASCP)cm, LUIS(ASCP)cm . Methodology: Genomic DNA was isolated from the provided specimen. Exon 15 of the BRAF gene was subjected to PCR and SNaPShot multiplex primer extension for [address] [address] PATHOLOGY RPT PROCEDURE Name: LAZARA ROSA Room #: 440-P DIS IN M.R.#: [id number] Admission: 12/14/18 Date of : 46 Discharge: 12/16/18 Report #: [id number] Path Case #: [id number] mutation detection. This assay is able to detect 5% mutation in a background of wild-type DNA. . Intended Use: The detection of a BRAF V600 gene mutation aids in the specific diagnosis of certain cancers, such as hairy cell leukemia, and help to identify patients with worse prognosis and who may be responsive to certain therapies in a variety of cancers. . References: Miko Darden al. (2014) Integrating molecular biomarkers into current clinical management in melanoma. Methods Mol. Biol. . . Andre S. et al. (2014) Resistance to anti-EGFR therapy in colorectal cancer: from heterogeneity to convergent evolution. Cancer Disco. 4:1-12. . NCCN Clinical Practice Guidelines in OncologyTM for Colon Cancer v.2 2015. . NCCN Clinical Practice Guidelines in OncologyTM for Hairy Cell Leukemia. v.4 2014. . NCCN Clinical Practice Guidelines in OncologyTM for Rectal Cancer v.2 2015. . NCCN Clinical Practice Guidelines in OncologyTM for Thyroid Carcinoma. v.2 2014. . NCCN Clinical Practice Guidelines in OncologyTM for Non-Small Cell Lung Cancer. v.1 2015. . Louann K. et al. (2012) Lung cancers with acquired resistance to EGFR inhibitors occasionally harbor BRAF gene mutations but lack mutations in KRAS, NRAS, or MEK1. Proc. Natl. Acad. Sci. USA. 109:F5626-W9133. . Adalid S. et al. (2013) Clinicopathological relevance of BRAF mutations in human cancer. Pathology 45: 346-356. . Jennifer Babin. and Franky Salinas (2010) BRAF mutation testing in colorectal cancer. Arch. Pathol. Lab. Med. 665-9686-4378. . Disclaimer This Test was performed by [facility] at [address], [address], [address]. [facility] is a business unit of [employer] a wholly-owned subsidiary of [employer]. . . [place] [address] PATHOLOGY RPT PROCEDURE Name: PROSPERLAZARA Room #: 440-P [facility] IN M.R.#: [id number] Admission: 12/14/18 Date of : 46 Discharge: 12/16/18 Report #: [id number] Path Case #: [id number] This test was developed and its performance characteristics determined by [employer], [employer] It has not been cleared or approved by the Food and Drug Administration. . A complete copy of the report is on file. . Professional services performed by [employer]. at [address] [place] [address] [address]. Technical services performed by [employer] at [address] [facility] [address] [address]. . (IUV:amj 12/23/2018) . AZJ/12/23/2018 Addendum Electronically Signed by Rayne Rivera MD, Pathologist Signed out by: 02 Rayne Rivera MD, Pathologist NPI- [id number] Performed by: Allyson Katz, Tire Repairman ([facility]) Gross description: 01 25 ML, RED, CLOUDY /LCS 03/15/1840 0000 Local FLAG LEGEND: L-Low Normal,H-High Normal,LL-Alert Low,HH-Alert High <-Panic Low,>-Panic High,A-Abnormal,AA-Critical Abnormal Performed at: [address] [place] [address] Percy Lagos MD, [address] [id number] Rayne Rivera MD, Specimen Comment: A courtesy copy of this report has been sent to Specimen Comment: [phone], . Specimen Comment: Report sent to DR SR / DR BAILEY Specimen Comment: Report sent to Performed at: [address], [place], [place] [id number] MD Percy Lagos MD Phone: [phone]
== END 2018-12-16 13:59 | disposition home or self-care (01) | DRG 189 ==
LOC: ER 05:03 → 4S 07:53 → 4E 07:53 → EROBS 07:53 → 4E 08:34 → 4S 12-15 13:30 → ENTRNSPT 12-16 13:37 → EDTRNSPTSTS 12-16 13:48 → 4S 12-16 13:59
PROVIDERS: Emergency Medicine; ADMIT Hospitalist
PROC: 0W993ZZ Drainage of Right Pleural Cavity, Percutaneous Approach (ICD-10-PCS; principal; 2018-12-14)
DX: J96.01 Acute respiratory failure with hypoxia (principal); C91.10 Chronic lymphocytic leukemia of B-cell type not having achieved remission; E44.0 Moderate protein-calorie malnutrition; J91.8 Pleural effusion in other conditions classified elsewhere; B02.9 Zoster without complications; R58 Hemorrhage, not elsewhere classified; D64.9 Anemia, unspecified; Z90.710 Acquired absence of both cervix and uterus; Z88.1 Allergy status to other antibiotic agents; Z88.0 Allergy status to penicillin; Z88.8 Allergy status to other drugs, medicaments and biological substances; Z87.891 Personal history of nicotine dependence; Z79.1 Long term (current) use of non-steroidal anti-inflammatories (NSAID); Z68.28 Body mass index [BMI] 28.0-28.9, adult
CPT/HCPCS: 10084; 10102

== ENCOUNTER 2019-02-06 10:48 | Inpatient (IN) | payer OTHER ==
[~2019-02-06] VITALS: Ht 165.1 cm; Wt 71.7 kg
[2019-02-06 10:53] VITALS: BP 118/70
[2019-02-06] MEDS ORDERED: LEVAQUIN 500 M500 M3 PO (11:06)
[2019-02-06] MEDS ORDERED: MARINOL2.5 MG PO (11:07)
[2019-02-06 11:27] LABS: HEMOGLOBIN 11.7 gm/dL (12.0-15.0); MCV 83.5 fL (80.0-100.0)
[2019-02-06 11:32] LABS: HEMATOCRIT 38.6 % (37.0-47.0); MCH 25.3 pg (26.0-34.0); MCHC 30.3 g/dL (28.0-37.0); RBC 4.62 mil/uL (4.20-5.00); RDW 20.1 % (10.5-14.5)
[2019-02-06 11:38] LABS: WBC 81.5 thou/uL (4.0-11.0)
[2019-02-06 11:44] LABS: CALCIUM 8.9 mg/dL (8.5-10.1); CREATININE 0.8 mg/dL (0.6-1.0); POTASSIUM 4.3 mmol/L (3.5-5.1)
[2019-02-06 11:53] LABS: ALBUMIN 2.9 g/dL (3.4-5.0); TOTAL BILIRUBIN 0.8 mg/dL (<0.1-1.0); TOTAL PROTEIN 6.5 g/dL (6.4-8.2)
[2019-02-06 13:38] LABS: URINE BLOOD 1+ (Negative); URINE CLARITY CLEAR; URINE GLUCOSE-RANDOM* NEGATIVE (Negative); URINE KETONES 1+ (Negative); URINE NITRITE-REFLEX NEGATIVE (Negative); URINE PROTEIN (DIPSTICK) TRACE (Negative)
[2019-02-06 13:42] LABS: URINE LEUKOCYTES-REFLEX 2+ (Negative)
[2019-02-06 13:44] LABS: ICTOTEST (BILI CONFIRMATORY) Negative (Negative); URINE BILIRUBIN NEGATIVE (Negative); URINE COLOR LIGHT AMBER
[2019-02-06 14:05] VITALS: BP 132/81
[2019-02-06 14:07] LABS: CASTS None Seen /LPF (None Seen); CRYSTALS None Seen /LPF (None Seen); SQUAMOUS 4-10 Moderate /LPF (0-3); URINE RBC 0-2 Rare /HPF (0-2); URINE WBC-REFLEX 6-15 Few /HPF (0-5)
[2019-02-06 14:15] VITALS: BP 121/62
--- NOTE | 2019-02-06 18:26 | NUR ---
TO UNIT FROM E.Kirill AT 1445. ORIENTED TO ROOM, FALL PRECAUTIONS. ADULT DTR AT BEDSIDE. RAISED, RED RASH ON TORSO AND EXTREMITIES NOTED. AFEBRILE NOW. ARRYTHMIA PER TELE NOTED. WBC NOTED. NARES SWABBED FOR MRSA ORDERED. WILL CONTINUE TO FOLLOW CLOSELY.
[2019-02-06 19:25] VITALS: BP 115/68
[2019-02-07 04:57] LABS: MCH 25.8 pg (26.0-34.0); MCHC 30.4 g/dL (28.0-37.0)
[2019-02-07 05:02] LABS: HEMATOCRIT 36.3 % (37.0-47.0); RBC 4.27 mil/uL (4.20-5.00); RDW 19.8 % (10.5-14.5)
[2019-02-07 05:06] LABS: CALCIUM 8.6 mg/dL (8.5-10.1); CREATININE 0.8 mg/dL (0.6-1.0); POTASSIUM 3.8 mmol/L (3.5-5.1)
[2019-02-07 05:07] LABS: WBC 66.8 thou/uL (4.0-11.0)
--- NOTE | 2019-02-07 05:39 | NUR ---
PATIENTS CARES WERE ASSUMED AT SHIFT CHANGE. PATIENT WAS ASSESSED AND MEDS WERE PASSED. PATIENT HAD NO REQUEST THIS SHIFT. PATIENT DID HAVE CRITICAL LAB CALL ON HER WBC'S OF 66.8, HOWEVER THAT IS IMPROVING FROM YESTERDAY. AT 0400 VS CHECK WAS DONE AND PATIENT WAS FOUND TO HAVE O2 SATS AT 83. 4L O2 PLACED ON THE PATIENT. ALBARO THE NURSE PRACTIONER WAS CALLED FOR ORDERS. RT WAS CALL TO HELP GET THE PATIENT COMFORTABLE. HOURLY ROUNDING WAS DONE. THE BED IS IN A LOW AND LOCKED POSITION
[2019-02-07 06:03] VITALS: BP 122/68
[2019-02-07 08:00] VITALS: BP 110/78
--- NOTE | 2019-02-07 08:00 | EKG ---
[place] [address] [address] [place] [address] ELECTROCARDIOGRAM REPORT Name: SHELLEYLAZARA Room #: 206-P ADM IN M.R.#: [id number] Admission: 02/06/19 Attend Phys: Dionte Willett MD Discharge: Date of : 46 Report #: [id number] THIS REPORT FOR: //name// [facility] ED Test Date: 2019-02-06 Test Time: 11:46:07 Pat Name: LAZARA ROSA Department: Room: 206 Gender: F Fiscal Specialist: gertrude : [id number] Requested By: Wendy Rodrigues Order Number: [id number] MD: Chino Dowling Measurements Intervals [place] Rate: 119 P: 43 AR: 162 QRS: 45 QRSD: 83 T: -35 QT: 298 QTc: 420 Interpretive Statements Sinus tachycardia Multiple premature complexes, supraven Anteroseptal infarct, old Nonspecific ST segment abnormality Compared to ECG 12/14/2018 05:14:44 No significant change was found Electronically Signed On 02-07-2019 8:00:40 ELECTRONIC INSTRUMENT TRADES WORKER by Chino Dowling [email or web address] <ELECTRONICALLY SIGNED> By: Chino oDwling MD, [facility] 02/07/19 0800 1146 [id number] Chino Dowling MD, [facility] /EPI
[2019-02-07 12:05] VITALS: BP 103/66
[2019-02-07 16:40] VITALS: BP 88/53
--- NOTE | 2019-02-07 17:09 | NUR ---
met with patient and family at bedside. 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 She reports employment aware she is in hospital. patient reports adequate time off work. patient hopes to wean off oxygen and dc home independently.
--- NOTE | 2019-02-07 17:54 | NUR ---
ASSUMED CARE AT SHIFT CHANGE, ASSESMENT CHARTED. BP 88/58 AT 1600, AND ASYMPTOMATIC OTHER VSS. SR-SA ON THE MONITOR. SOB WITH EXCERTION. PATIENT HAS RE RASH ALL OVER HER BODY, MORE ON BLE AND DR REEVES NOTIFIED. AND WILL CONTINUE WITH POC.
[2019-02-07 23:43] VITALS: BP 103/69
[2019-02-08 04:13] LABS: CALCIUM 8.1 mg/dL (8.5-10.1); CREATININE 0.8 mg/dL (0.6-1.0); POTASSIUM 3.9 mmol/L (3.5-5.1)
[2019-02-08 04:48] VITALS: BP 104/63
[2019-02-08 05:01] LABS: MCH 25.7 pg (26.0-34.0)
[2019-02-08 05:07] LABS: HEMATOCRIT 30.7 % (37.0-47.0); HEMOGLOBIN 9.2 gm/dL (12.0-15.0); MCV 85.6 fL (80.0-100.0); RBC 3.59 mil/uL (4.20-5.00); RDW 20.2 % (10.5-14.5)
--- NOTE | 2019-02-08 05:19 | NUR ---
ASSUMED PT CARE AT 1900. VSS EXCEPT BP WHICH WAS LOW BUT THEN CAME BACK UP WNL AROUND MIDNIGHT PT WAS ON FLUIDS. PT O2 WAS ON 4L WHEN I TOOK OVER, PT WAS SATIING 98% AT THIS TIME SO I TITRATED TO 2L NC. PT IS SATTING ABOVE 97 ON 2L. PT'S LABS CAME BACK THIS AM WITH WBC INCREASE TO 69.2 FROM 66.8. CRITICAL RESULTS CALLED TO ALBARO; NO NEW ORDERS. NEW IV INSERTED IN R HAND PREVIOUS INFILTRATED. PT STABLE, NO COMPLAINTS OF PAIN OR DISCOMFORT. WILL CONTINUE TO MONITOR PER POC.
[2019-02-08 05:21] LABS: WBC 69.2 thou/uL (4.0-11.0)
[2019-02-08 07:47] VITALS: BP 109/65
[2019-02-08 08:09] LABS: HEMATOLOGY COMMENTS Note: (()); HEMOGLOBIN 11.7 g/dL (11.1-15.9)
[2019-02-08 11:16] VITALS: BP 112/64
[2019-02-08 15:19] VITALS: BP 115/61
--- NOTE | 2019-02-08 18:09 | NUR ---
ASSUMED CARE AT SHIFT CHANGE, ASSESMENT CHARTED. VSS, AFEBRILE AND SR ON THE MONITOR.PROGRESSING TOWARDS GOALS AND WILL CONTINUE WITH POC.
[2019-02-08 20:24] VITALS: BP 116/64
--- NOTE | 2019-02-08 20:30 | HC ---
[facility] [address] CONSULTATION Name: SHELLEYLAZARA Hermelindo Room #: 206-P [facility] IN .R.#: [id number] Admission: 02/06/19 Attend Phys: Dionte Willett MD Discharge: Date of : 46 Report #: [id number] THIS REPORT FOR: //name// CC: Donato Willett DATE OF SERVICE: 02/07/2019 INFECTIOUS DISEASE CONSULTATION REASON FOR CONSULTATION: I was asked to evaluate concerning fever, rash, chemotherapy for lung cancer and CLL. HISTORY OF PRESENT ILLNESS: The patient was a 68-year-old with history of CLL longstanding on no active treatment at this point who was diagnosed last month with fzv-txzvf-tanp carcinoma of the lung with malignant pleural effusion on the left. Treatment with Keytruda. Last dose was 10 days ago. Four days ago, developed onset of fever with mild chills. She has had minimal cough. No chest pain. Temperature over 101 degrees. Denies any sputum production, hemoptysis. No sinus congestion or drainage. No nausea, vomiting or diarrhea. No dysuria or frequency. No arthritis symptoms or increased adenopathy. No neurologic issues. She has had no travel. Unclear if she has had any neutropenia for I have not yet seen any differential on her CBC. She has had pneumonia remotely. Nonsmoker. Lives alone. 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 Following initiation of Levaquin last Thursday she developed rash upper and lower extremities. This was nonpruritic. She has had no mucosal issues. When she presented to the Emergency Room for such, she was found to be hypoxic and now is on 4 liters of oxygen per nasal cannula. It is noted she has multiple drug allergies, mostly to ANTIBIOTICS. REVIEW OF SYSTEMS: A 10-point review of systems was negative other than what has been described above. ALLERGIES: AMOXICILLIN, CEPHALEXIN, ERYTHROMYCIN, TETRACYCLINE, TRAMADOL. MEDICATIONS: Simvastatin, Maxzide, Zyrtec, Levaquin, Marinol, Celebrex, Neurontin, Compazine, albuterol, potassium, lisinopril, Protonix, latanoprost eyedrops, vitamin C, vitamin D, codeine and diphenhydramine. We started on vancomycin and aztreonam this hospital stay. PAST MEDICAL HISTORY: CLL, lung cancer, hysterectomy and tonsillectomy. FAMILY HISTORY: Noncontributory. SOCIAL HISTORY: Past smoker, no significant alcohol intake, no HIV risks. No [facility] [address] [place] [address] CONSULTATION Name: LAZARA ROSA Room #: 206-P [facility] IN [facility]#: [id number] Admission: 02/06/19 Attend Phys: Dionte Willtet MD Discharge: Date of : 46 Report #: [id number] tuberculosis exposure. PHYSICAL EXAMINATION: VITAL SIGNS: Afebrile and hemodynamically stable. GENERAL: Alert and cooperative and pleasant, in no acute distress. SKIN: With erythroderma involving the lower extremities with several patches. She had more of a reticular pattern of erythema involving the upper extremities, chest and back. No palpable adenopathy. HEENT: Eyes, without scleral icterus or conjunctivitis. Mouth without mucositis upper dentures. NECK: Supple. LUNGS: Decreased breath sounds in the left base posteriorly. There was no consolidation or rub. HEART: Regular without appreciable murmur, gallop or rub. ABDOMEN: Soft, nontender, no hepatosplenomegaly or mass. GENITORECTAL: Not performed. EXTREMITIES: Without clubbing, cyanosis or edema. NEUROLOGIC: Cranial nerves intact. Strength in the upper and lower extremities was normal. Sensation in the upper and lower extremities to touch was normal. Mood was normal. Affect was normal. LABORATORY STUDIES: Hemoglobin 11, WBC 66,000, platelets 260,000. Differential is pending. Creatinine 0.8. Sodium 136, potassium 3.8, bicarbonate 28. Lactate 1.5. Liver function tests normal. Albumin at 2.9. Urinalysis, 6-15 wbc's, moderate bacteria. MRSA screen is pending. Urine cultures pending. Throat culture for strep pending. Blood cultures pending. Chest x-ray, moderate left pleural effusion with secondary atelectasis, left mid and upper lung, non-consolidative infiltrate that seems worse from previous study. IMPRESSION: 1. A 68-year-old with hpe-rgnjd-nypd carcinoma of the lung, now second round of chemotherapy with fever, source of which I am suspecting pulmonary with new pulmonary infiltrate in the left mid upper lung and hypoxia. She has persistent left pleural effusion, which is malignant. 2. Underlying chronic lymphocytic leukemia, longstanding with no significant change in her numbers. I have not seen IgG level. I have not seen a differential on her CBC. 3. Left lung disease with recurrent malignant effusion. 4. Multiple drug allergies. 5. Drug rash from Levaquin. RECOMMENDATIONS: We will continue IV antibiotics vancomycin and aztreonam. We will do screening antigens and PCR for viral respiratory pathogens as well as [facility] [address] [place] [place] [address] CONSULTATION Name: LAZARA ROSA Room #: 206-P ADM IN M.R.#: [id number] Admission: 02/06/19 Attend Phys: Dionte Willett MD Discharge: Date of : 46 Report #: [id number] legionella. Check IgG level. Serial chest x-ray. May need to repeat CT scan of the chest and thoracentesis if she does not begin to improve. <ELECTRONICALLY SIGNED> By: Hany Jung MD 02/08/19 2030 [id number] Hany Jung MD /nt
--- NOTE | 2019-02-09 04:28 | NUR ---
ASSUMED PT CARE AROUND 1900. PT VSS AND AFEBRILE. PT HAS NO C/O N/V/D OR PAIN. ASSESSMENT CHARTED. PT LEGS ELEVATED PER DOCTOR REQUEST. WILL CONTINUE TO MONITOR PER PT POC.
[2019-02-09 04:40] VITALS: BP 126/70
[2019-02-09 05:23] LABS: HEMOGLOBIN 9.9 gm/dL (12.0-15.0)
[2019-02-09 05:32] LABS: HEMATOCRIT 32.9 % (37.0-47.0); MCH 25.6 pg (26.0-34.0); MCV 85.4 fL (80.0-100.0); RBC 3.85 mil/uL (4.20-5.00); RDW 20.4 % (10.5-14.5)
[2019-02-09 05:42] LABS: WBC 79.6 thou/uL (4.0-11.0)
[2019-02-09 05:46] LABS: CALCIUM 8.2 mg/dL (8.5-10.1); CREATININE 0.8 mg/dL (0.6-1.0); POTASSIUM 3.5 mmol/L (3.5-5.1)
[2019-02-09 08:00] VITALS: BP 116/66
[2019-02-09 12:29] VITALS: BP 117/65
--- NOTE | 2019-02-09 13:18 | NUR ---
FAXED REFERRAL TO [facility]KE WITH JAILENE IN INTAKE SHE CAN ACCEPT PT AT DC. ANTICIPATE DC TOMORROW.
--- NOTE | 2019-02-09 13:44 | NUR ---
Discussed with patient dc home and HH recommendation. patient reports she wants to return to work candace. She reports her dtr present at her home everyday. Only time she is alone is at night. She reports she wants to be driving at dc and does not want HH at dc. Updated phys. Insurance updated if patient choses to rec HH care options are [facility] who are in network with insurance. If patient should dc over holiday and need home oxygen... complete Sat/excercise. Call Radha at [phone]. alert you are discharging a patient from [facility] with need for new oxygen set up. Fax H/P, sat excercise, face sheet, and prescription for oxygen. Alert of room number so Radha can bring oxygen tank to room for home.
--- NOTE | 2019-02-09 15:48 | NUR ---
ASSUMED CARE AT 0700, SHIFT ASSESSMENT DONE, MEDS GIVEN, DENEIS PAIN, NAUSEA, VOMITING. UP AD NANCY IN THE ROOM, ON 1L NC. HAD SOME EPISODES OF TACHYCARDIA, DR WAGNER. SANDRAR ON TELE OTHERWISE. PT INDICATES SHE DID NOT FEEL DIZZY, LIGHT HEADED DURING THIS PERIODS OF TACHYCARDIA. WILL CONTINUE TO ASSESS AND ASSIST WITH ADLs NEEDED.
[2019-02-09 20:31] VITALS: BP 129/70
[2019-02-10 03:57] VITALS: BP 122/80
--- NOTE | 2019-02-10 05:29 | NUR ---
ASSUMED PT CARE AROUND 1900. PT DAUGHTER AT BEDSIDE. PT C/O NO PAIN N/V/D. PT SLEPT THRU NIGHT WITH MINIMAL INTERRUPTIONS. PT ASSESSMENTS CHARTED AND PT IS PROGRESSING TOWARDS POC. WILL CONTINUE TO MONITOR.
[2019-02-10 07:50] VITALS: BP 120/76
--- NOTE | 2019-02-10 10:35 | NUR ---
AAOX4. CALM, COOPERATIVE. ADULT DTR AT BEDSIDE. WALKS IN THE HALLS WITH PORTABLE O2 AT 1L. ATTEMPTING TO WEAN OFF O2 FOR DISCHARGE. SINUS ARRHYTHMIA PER TELE. FALL PRECAUTIONS IN PLACE. WILL CONTINUE TO MONITOR CLOSELY.
[2019-02-10 12:00] VITALS: BP 121/76
[2019-02-10 16:25] VITALS: BP 106/72
[2019-02-10 20:28] VITALS: BP 137/81
[2019-02-11 05:18] VITALS: BP 143/93
--- NOTE | 2019-02-11 07:08 | NUR ---
ASSUME CARE 1900. PT/VITALS STABLE. DENIES ANY PAIN. UP AD P=NANCY ASSESSMENT CHARTED. PROGRESSING WELL WITH POC. ADEQUATE REST NOTED. SR/BBB ON MONITOR WITH ST NOTED WITH ACTIVITY. JESUS MANUEL IS TO CONITNUE TREATING PT WITH ABX. WILL CONTINUE TO MONITOR
[2019-02-11 08:25] VITALS: BP 143/89
[2019-02-11 10:10] LABS: IgA 43 mg/dL (87-352); IgG 391 mg/dL (700-1600); IgM 33 mg/dL (26-217)
[2019-02-11 11:22] VITALS: BP 147/86
[2019-02-11] MEDS ORDERED: [UNRECOGNIZED DRUG - OTHER] PO (15:11)
[2019-02-11] MEDS ORDERED: PREDNISONE 10 M10 M1 PO (15:27)
[2019-02-11 16:10] VITALS: BP 132/64
--- NOTE | 2019-02-11 16:42 | NUR ---
rec request to inquire into cost of medication xenleta. Called patients pharmacy [facility] [address] they report not in stock and not in stock at any [facility] [place]. Requested they get in stock for Thursday the earliest they could rec. Sp with [facility], [facility], [facility], [facility], [facility], [facility], [facility] and none have medication in stock and cannot order. THis medication unavailable and unattainable for patient. Notified phys and Rn.
--- NOTE | 2019-02-11 18:44 | NUR ---
PT. ARRIVED AT FLOOR AROUND 1800; AOX4; ABLE TO TRANSFER FROM WHEELCHAIR TO BED; C/O PAIN OVER CHEST & L. AREA; 03/25; VS WNL; FLUIDS STARTED; HR ON THE MORNITOR ST; EDUCATED ABOUT CALL LIGHT & BED CONTROLS; CARE TRANSFER TO NIGHT NURSE;
--- NOTE | 2019-02-11 18:55 | NUR ---
RECEIVED PT'S CARE AROUND 0700; PT. ON BED; AOX4; DURING ASSESSMENT NO C/O PAIN; AM MEDICATIONS GIVEN; SR ON THE MONITOR; NOTICED ELEVATED HR FROM TIME TO TIME WITH AMBULATION; PLAN TO BE D/C TODAY; DUE TO ANTIBIOTICS NOT AVAILABLE DURING WEEKEND; PT. STAYING THE WEEKEND; PHYSICIANS NOTIFIED; PT. NOTIFIED; ASSESSMENT CHARGED; FOLLOWING POC; PASSED ON REPORT;
[2019-02-11 19:30] VITALS: BP 123/62
--- NOTE | 2019-02-12 04:22 | NUR ---
ASSUMED PT CARE AT 1900. PT A/OX4, VITAL SIGNS STABLE, ASSESSMENT CHARTED. NO COMPLAINTS OF PAIN. NO COMPLAINTS OF CHEST DISCOMFORT. PT RESTED WELL THROUGH THE NIGHT. PROGRESSING TOWARD PLAN OF CARE. WILL CONTINUE TO MONITOR.
[2019-02-12 04:39] VITALS: BP 138/75
[2019-02-12 07:26] VITALS: BP 127/65
[2019-02-12 11:59] VITALS: BP 124/65
--- NOTE | 2019-02-12 13:54 | NUR ---
ALERT X4 RESIDUAL PAIN FROM [place] ON LEFT SIDE OF FACE. PROGRESSING TOWARDS GOALS. WILL LIKELY DC ON THURSDAY. CALLS FOR ASSISTANCE.
[2019-02-12 15:42] VITALS: BP 125/62
[2019-02-12 19:12] VITALS: BP 133/74
[2019-02-13 03:50] VITALS: BP 133/82
[2019-02-13 04:55] LABS: MCH 25.3 pg (26.0-34.0); MCHC 28.9 g/dL (28.0-37.0); MCV 87.4 fL (80.0-100.0)
[2019-02-13 04:59] LABS: PLATELET COUNT 417 thou/uL (150-400); RBC 4.35 mil/uL (4.20-5.00); RDW 22.2 % (10.5-14.5)
[2019-02-13 05:00] LABS: ALBUMIN 2.7 g/dL (3.4-5.0); CALCIUM 8.3 mg/dL (8.5-10.1); CREATININE 0.8 mg/dL (0.6-1.0); MAGNESIUM 1.9 mg/dL (1.8-2.4); PHOSPHORUS 3.7 mg/dL (2.5-4.9); POTASSIUM 4.6 mmol/L (3.5-5.1); TOTAL BILIRUBIN 0.6 mg/dL (<0.1-1.0); TOTAL PROTEIN 5.9 g/dL (6.4-8.2)
[2019-02-13 05:39] LABS: WBC 126.9 thou/uL (4.0-11.0)
--- NOTE | 2019-02-13 06:34 | NUR ---
ASSUMED PT CARE AT 1900, PATIENT A/OX4, ABLE TO VOICE NEEDS, NO COMPLAINS OF PAIN, IV RESTATED TO THE R. HAND, IV INTACT WITH NO REDNESS OR INFILTRATION, NORMAL SINUS RHYTHM ON THE MONITOR, RESTED WELL THROUGHOUT THE NIGHT, WILL CONTINUE TO MONITIOR
[2019-02-13 06:38] LABS: ABSOLUTE NEUTROPHILS 10.2 thou/uL (1.4-8.2)
[2019-02-13 06:39] LABS: ANISOCYTOSIS 3+
[2019-02-13 08:41] VITALS: BP 145/68
--- NOTE | 2019-02-13 10:53 | NUR ---
ASSUMED CARE AT 0700, SHIFT ASSESSMENT DONE, MEDS GIVEN, VSS. DENIES ANY PAIN, NAUSEA, VOMITING. UP WITH STANDBY, SITTING IN THE CHAIR THIS AM. REMAINS IN 4LNC, NSR ON TELE. WILL CONTINUE TO ASSESS AND ASSIST WITH ADLs NEEDED.
--- NOTE | 2019-02-13 10:56 | NUR ---
ASSUMED CARE AT 0700, SHIFT ASSESSMENT DONE, MEDS GIVEN, VSS. DENIES PAIN, NAUSEA, VOMITING. UP AD NANCY, ROOM AIR. AWAITING FOR PHARMACY TO CALL ABOUT CONDFIRMING THE ORDER ABOUT ANTIBIOTIC. WILL CONTINUE TO ASSESS AND ASSIST WITH ADLs NEEDED.
--- NOTE | 2019-02-13 11:35 | NUR ---
ASSUMED CARE AT 0700, SHIFT ASSESSMENT DONE, MEDS GIVEN, VSS. DENIES PAIN, NAUSEA, VOMITING. UO AD NANCY, ROOM AIR. AWAITING FOR PHARMACY TO FILL PRESCRPITON SO THAT PT CAN BE DISCHARGED. WILL CONTINUE TO ASSESS AND ASSIST WITH ADLs NEEDED.
[2019-02-13 12:49] VITALS: BP 135/73
[2019-02-13 16:31] VITALS: BP 132/75
[2019-02-13 20:21] VITALS: BP 146/77
[2019-02-14 04:04] VITALS: BP 150/75
--- NOTE | 2019-02-14 05:09 | NUR ---
ASSESSMENT DOCUMENTED.PT BEEN RESTING IN NO ACUTE DISTRESS.A/OX4.VSS.CONTINUES ON ABT THERAPY W/O ADVERSE EFFECT NOTED.UP INDEPENDENTLY TO BR WITH STAEDY GAIT.DENIES PAIN.PT HOPING TO GET DISCHARGED TODAY TO HOME.WILL CONTINUE TO MONITOR.
[2019-02-14 08:25] VITALS: BP 134/81
[2019-02-14 12:07] VITALS: BP 134/69
--- NOTE | 2019-02-14 13:01 | 2DMMODE ---
[facility] [address] [place] [address] 2 D/M-MODE ECHOCARDIOGRAM Name: LAZARA ROSA Room #: 206-P [facility] IN ..#: [id number] Admission: 02/06/19 Attend Phys: Dionte Willett MD Discharge: Date of : 46 Report #: [id number] THIS REPORT FOR: //name// APPROVED REPORT Study performed: 02/14/2019 10:59:45 EXAM: Comprehensive 2D, Doppler, and color-flow Echocardiogram Patient Location: Echo lab Room #: 206 Status: routine BSA: 1.74 HR: 87 bpm BP: 150/75 mmHg Rhythm: NSR Other Information Study Quality: Adequate Indications Tachycardia Lung CA 2D Dimensions IVSd: 7.61 (7-11mm) LVOT Diam: 20.00 (18-24mm) LVDd: 36.88 mm PWd: 7.49 (7-11mm) Ascending Ao: 27.74 (22-36mm) LVDs: 24.37 (25-40mm) Aortic Root: 26.50 mm LV Single Plane 4CH: 67.73 % LV Single Plane 2CH: 69.28 % Biplane EF: 69.0 % Volumes Left Atrial Volume (Systole) Single Plane 4CH: 45.23 mL Single Plane 2CH: 51.32 mL LA ESV Index: 31.00 mL/m2 Aortic Valve AoV Peak Tariq.: 1.47 m/s AO Peak Gr.: 8.69 mmHg LVOT Max P.14 mmHg LVOT Max V: 1.02 m/s MADAN Vmax: 2.14 cm2 Mitral Valve [facility] [address] [place] [address] 2 D/M-MODE ECHOCARDIOGRAM Name: SHELLEYLAZARA Room #: 206-P [facility] IN [facility]#: [id number] Admission: 02/06/19 Attend Phys: Dionte Willett MD Discharge: Date of : 46 Report #: [id number] E/A Ratio: 1.4 MV Decel. Time: 120.56 ms MV E Max Tariq.: 0.96 m/s MV A Tariq.: 0.68 m/s MV PHT: 34.96 ms IVRT: 72.66 ms TDI E/Lateral E': 12.00 E/Medial E': 9.60 Medial E' Tariq.: 0.10 m/s Lateral E' Tariq.: 0.08 m/s Pulmonary Valve PV Peak Tariq.: 0.85 m/s PV Peak Gr.: 2.86 mmHg FL End Vmax: 1.49 m/s Pulmonary Vein P Vein S: 0.87 m/s P Vein A: 0.29 m/s P Vein D: 0.54 m/s P Vein A Dur.: 93.4 msec P Vein S/D Ratio: 1.61 Tricuspid Valve TR Peak Tariq.: 2.93 m/s RAP Estimate: 7.00 mmHg TR Peak Gr.: 34.23 mmHg PA Pressure: 41.00 mmHg Left Ventricle The left ventricle is normal size. There is normal LV segmental wall motion. There is normal left ventricular wall thickness. Left ventricular systolic function is normal. The left ventricular ejection fraction is within the normal range. LVEF is 65-70%. The left ventricular diastolic function is normal. Right Ventricle The right ventricle is normal size. The right ventricular systolic function is normal. Atria The left atrium size is normal. The right atrium size is normal. Aortic Valve The aortic valve is normal in structure. No aortic regurgitation is present. There is no aortic valvular stenosis. Mitral Valve [address] [address] 2 D/M-MODE ECHOCARDIOGRAM Name: LAZARA ROSA Room #: 206-P [facility] IN [facility].#: [id number] Admission: 02/06/19 Attend Phys: Dionte Willett MD Discharge: Date of : 46 Report #: [id number] The mitral valve is normal in structure. There is no mitral valve regurgitation noted. No evidence of mitral valve stenosis. Tricuspid Valve The tricuspid valve is normal in structure. Trace tricuspid regurgitation. Pulmonary artery pressure is 40 mmHg. Pulmonic Valve The pulmonary valve is normal in structure. Trace pulmonic regurgitation. Great Vessels The aortic root is normal in size. IVC is normal in size and collapses >50% with inspiration. Pericardium There is no pericardial effusion. Pleural effusion is present. <Conclusion> Left ventricular systolic function is normal. There is normal LV segmental wall motion. LVEF is 65-70%. Normal diastolic function The aortic valve is normal in structure. No aortic regurgitation or stenosis The mitral valve is normal in structure. No mitral valve regurgitation Trace tricuspid regurgitation. Pulmonary artery pressure of 40 mmHg. There is no pericardial effusion. Pleural effusion is present. <ELECTRONICALLY SIGNED> By: Chino Dowling MD, FACC 02/14/19 1301 1301 1301 Chino Dowling MD, FACC /INF
--- NOTE | 2019-02-14 15:31 | NUR ---
Spoke with [address] [facility] this am they were reviewing their shipments and requested call back after 1 pm. Called after 1 and initially pharmacy reports patient requested medication be transferred to a specialty pharmacy at [facility] and [place]. patient did not request this. Sp again with pharmacy and they report it is to be sent to this specific [facility] as it is a "Specialty Clinic." At this time medication is not at clinic. [address] [address]
[2019-02-14 16:19] VITALS: BP 134/83
--- NOTE | 2019-02-14 19:29 | NUR ---
ASSUMED CARE AT 0700, SHIFT ASSESSMENT DONE, MEDS GIVEN, VSS. DENIES PAIN, NASUEA, VOMITING. NSR ON TELE, UP AD NANCY. AWAITING FOR ANTIBIOTICS TO BE FILLED AT HER PHARAMACY. WILL CONTINUE TO ASSESS AND ASSIST WITH ADLs NEEDED.
[2019-02-14 21:29] VITALS: BP 134/78
--- NOTE | 2019-02-15 04:45 | NUR ---
ASSESSMENT DOCUMENTED.PT BEEN RESTIMG IN NO ACUTE DISTRESS.A/OX4.VSS.PT NOTED TO HAVE INCREASED IHLTON LES EDEMA,PT C/O TIGHTNESS IN HER LEGS AND SWELLING.DUPLEX TRIMMER NOTIFIED,N/O GIVEN FOR LASIX 40MG IVPX1.PT ADMITTED TO [facility] AND LASIX DOING ITS JOB AND WANTS TO KNOW WHETHER SHE CAN HAVE PRESCPTION OF LASIX FOR FEW DAYS,INSTRUCTED THAT WE WILL NOTIFY THE DR OF HER CONCERNS THIS AM.ABT INFUSED PER ORDERS.DENIES ANY NEEDS AT THIS TIME.POSSIBLE DISCHARGE THIS AM.
[2019-02-15 05:35] VITALS: BP 126/60
[2019-02-15 08:10] VITALS: BP 128/78
--- NOTE | 2019-02-15 10:43 | NUR ---
spoke with [facility] specialty pharmacy at this time medication has not been delivered.
--- NOTE | 2019-02-15 10:52 | NUR ---
spoke with [facility] they rec medication. patient sp with [facility] pharmacy she requested [facility]ty [facility] send to her [address] [facility] location. They report it will arrive there between 1-5 today. Updated phys, and Rn
[2019-02-15] MEDS ORDERED: FUROSEMIDE 40 M40 MG PO (11:36)
[2019-02-15 11:52] VITALS: BP 137/78
--- NOTE | 2019-02-15 14:09 | NUR ---
ASSUMED CARE 0700. ALERT X4, DENIES PAIN, EDEMA IN LE TREATED WITH MEDICATIONS, UP AB NANCY. ANTIBOITIC MEDICATIONS SENT PATIENT PHARMACY FOR [facility] [employer] [employer] [facility]. DC HOME WITH SELF CARE. REVIEW NEW SCRIPTS AND DISCHARGE ORDERS. IV AND HEART MONITOR REMOVED.
[2019-02-16 06:11] LABS: ADENOVIRUS Negative (Negative); INFLUENZA A Negative (Negative); INFLUENZA B Negative (Negative); METAPNEUMOVIRUS Negative (Negative); PARAINFLUENZA 1 Negative (Negative); PARAINFLUENZA 2 Negative (Negative); PARAINFLUENZA 3 Negative (Negative); RHINOVIRUS Negative (Negative); RSV A Negative (Negative); RSV B Negative (Negative)
== END 2019-02-15 14:20 | disposition home or self-care (01) | DRG 871 ==
LOC: ER 10:48 → 2N 14:15 → EROBS 14:27 → 2N 14:28 → ENTRNSPT 02-15 13:37 → EDTRNSPTSTS 02-15 14:14 → 2N 02-15 14:20
PROVIDERS: Internal Medicine; Nurse Practitioner Family; Specialist; ADMIT Hospitalist
DX: A41.9 Sepsis, unspecified organism (principal); J18.9 Pneumonia, unspecified organism; E43 Unspecified severe protein-calorie malnutrition; J96.01 Acute respiratory failure with hypoxia; C34.90 Malignant neoplasm of unspecified part of unspecified bronchus or lung; C91.10 Chronic lymphocytic leukemia of B-cell type not having achieved remission; J91.0 Malignant pleural effusion; J91.8 Pleural effusion in other conditions classified elsewhere; D80.9 Immunodeficiency with predominantly antibody defects, unspecified; I48.91 Unspecified atrial fibrillation; L27.0 Generalized skin eruption due to drugs and medicaments taken internally; I10 Essential (primary) hypertension; T36.8X5A Adverse effect of other systemic antibiotics, initial encounter; E78.5 Hyperlipidemia, unspecified; Z90.710 Acquired absence of both cervix and uterus; Z88.1 Allergy status to other antibiotic agents; Z88.0 Allergy status to penicillin; Z88.8 Allergy status to other drugs, medicaments and biological substances; Y92.89 Other specified places as the place of occurrence of the external cause; Z87.891 Personal history of nicotine dependence; Z68.26 Body mass index [BMI] 26.0-26.9, adult; Z79.899 Other long term (current) drug therapy
CPT/HCPCS: 10081; 10194

== ENCOUNTER 2019-02-21 14:44 | Emergency (ER) | payer OTHER ==
[~2019-02-21] VITALS: Ht 165.1 cm; Wt 59.4 kg
[~2019-02-21 14:44] MED LIST changes: +FUROSEMIDE 40 M40 MG PO; +LEVAQUIN 500 M500 M3 PO; +MARINOL2.5 MG PO; +PREDNISONE 10 M10 M1 PO; +[UNRECOGNIZED DRUG - OTHER] PO
[2019-02-21] MEDS ORDERED: KLOR-CON 10 ER10 MEQ PO (14:58)
[2019-02-21 15:55] VITALS: BP 133/63
== END 2019-02-21 15:55 | disposition home or self-care (01) ==
LOC: ER 14:44
DX: S09.8XXA Other specified injuries of head, initial encounter (principal); Z90.89 Acquired absence of other organs; Z90.710 Acquired absence of both cervix and uterus; Z85.118 Personal history of other malignant neoplasm of bronchus and lung; Z85.6 Personal history of leukemia; Z88.1 Allergy status to other antibiotic agents; Z88.0 Allergy status to penicillin; Z88.6 Allergy status to analgesic agent; Z88.8 Allergy status to other drugs, medicaments and biological substances; Z87.891 Personal history of nicotine dependence; W18.39XA Other fall on same level, initial encounter; Y93.01 Activity, walking, marching and hiking; Y92.009 Unspecified place in unspecified non-institutional (private) residence as the place of occurrence of the external cause; Y99.8 Other external cause status

== ENCOUNTER 2019-03-16 19:59 | Inpatient (IN) | payer OTHER ==
[~2019-03-16] VITALS: Ht 165.1 cm; Wt 73.4 kg
--- NOTE | ~2019-03-16 | HC ---
[facility] [place] [address] CONSULTATION Name: SHELLEYLAZARA Casarez Room #: 218-P [facility] IN .R.#: [id number] Admission: 03/16/19 Attend Phys: Jairo Pirce MD Discharge: Date of : 48 Report #: [id number] THIS REPORT FOR: //name// CC: Donato Price DATE OF SERVICE: 03/23/2019 HISTORY OF PRESENT ILLNESS: The patient is a 68-year-old -[place] Citizen female with a history of left lung adenocarcinoma along with concurrent CLL who was admitted on 03/16/2019 with increased shortness of breath. She had a fever of 101.2. Workup was consistent with bilateral pulmonary emboli. She was noted to have acute hypoxic respiratory failure. Doppler studies revealed clots of bilateral lower extremities. She was treated for respiratory failure, placed on a heparin drip, utilize BiPAP, given IV antibiotics. She has now been changed to Eliquis. Recommendations are for rehabilitation. We are seeing her in rehabilitation medicine consultation. Prior medical history includes the previously noted adenocarcinoma of the lung as well as the CLL. ALLERGIES: Multiple allergies are as noted. MEDICATIONS: Please see the full medication listing. PAST MEDICAL HISTORY: Also includes hypertension, past tobacco abuse, and hyperlipidemia. HABITS: Former tobacco abuse, quit 17 years ago. SOCIAL HISTORY: Lives in a house alone. There are 12 steps to the basement. Daughter does the laundry. Daughter lives close by. REVIEW OF SYSTEMS: No current complaints of chest pain. She is on oxygen, some shortness of breath with increased activity. Complains of the lower extremity edema. No abdominal discomfort. PHYSICAL EXAMINATION: GENERAL: A 68-year-old -[place] Citizen female in no obvious distress. VITAL SIGNS: Last recorded temperature 97.5, pulse 89, respirations 19, blood pressure 116/55. The patient is alert, pleasant, appears to be a good historian. She is currently on nasal prong O2, 4 liters. HEENT: Facies are symmetric. EXTREMITIES: She has functional range of motion of both upper extremities. Strength is grade 3+ to 4-/5. DTRs are trace to 1. Lower extremities, she does have some diffuse edema bilateral lower extremities, proximal and distal. I would grade at least 1+. She is able to move both lower extremities, probably a grade 3+ to 4-/5. She is min assist with sit to stand. Gait was 3 feet min [facility] [address] [place] [address] CONSULTATION Name: LAZARA ROSA Room #: 218-P [facility] IN .R.#: [id number] Admission: 03/16/19 Attend Phys: Jairo Price MD Discharge: Date of : 48 Report #: [id number] assist with a front-wheeled walker. She did need mod to max assist lifting to the commode per OT. ASSESSMENT: A 68-year-old -[place] Citizen female with following problems: 1. Medical complexity with generalized debilitation. 2. Bilateral pulmonary emboli. 3. Acute hypoxic respiratory failure. 4. Adenocarcinoma, has been on treatment with Keytruda. 5. History of chronic lymphocytic leukemia. 6. Initial febrile episode. Infectious Disease has been involved with noted bacteremia. 7. Bilateral lower extremity deep venous thrombosis. PLAN: Would agree that the patient would benefit from an acute in-hospital inpatient rehabilitation stay. She does have considerable medical complexity and is being followed by Internal Medicine, Pulmonary Medicine, Hematology/Oncology, and Infectious Disease. These consultants could continue to follow while on the acute in-hospital inpatient rehabilitation ortiz while the patient is undergoing her interdisciplinary acute rehabilitation. The goal will be to maximize her functional independence, so that she can return back to the home setting with her supportive daughter involved. Insurance precertification issues to be undertaken. Thank you for asking us to assist in this patient's care. The patient is agreeable to plan as noted. By: [id number] Morgan Fay MD /nt
[~2019-03-16 19:59] MED LIST changes: +KLOR-CON 10 ER10 MEQ PO
[2019-03-16 20:01] VITALS: BP 118/85
[2019-03-16 20:34] LABS: BE(vivo) -1.9 mmol/L (-2 to +3); HCO3 21.1 mmol/L (22.0-26.0); PCO2 30.6 mmHg (35.0-45.0); PO2 62.9 mmHg (80.0-100.0); pH 7.456 (7.360-7.450); sO2 93.4 % (92.0-98.0)
[2019-03-16 20:45] LABS: HEMATOCRIT 37.2 % (37.0-47.0); HEMOGLOBIN 11.7 gm/dL (12.0-15.0); MCH 28.3 pg (26.0-34.0); MCHC 31.3 g/dL (28.0-37.0); MCV 90.3 fL (80.0-100.0); PLATELET COUNT 167 thou/uL (150-400); RBC 4.12 mil/uL (4.20-5.00); RDW 24.5 % (10.5-14.5)
[2019-03-16 20:50] LABS: ANION GAP 10 mmol/L (7-16); BUN 10 mg/dL (7-18); CALCIUM 8.3 mg/dL (8.5-10.1); CHLORIDE 105 mmol/L (98-107); CO2 21 mmol/L (21-32); CREATININE 0.7 mg/dL (0.6-1.0); GLUCOSE 124 mg/dL (74-106); POTASSIUM 5.5 mmol/L (3.5-5.1); SODIUM 136 mmol/L (136-145)
[2019-03-16 21:09] LABS: ALBUMIN 2.5 g/dL (3.4-5.0); SGOT 26 U/L (15-37); SGPT 8 U/L (14-59); TOTAL BILIRUBIN 1.2 mg/dL (<0.1-1.0); TOTAL PROTEIN 5.9 g/dL (6.4-8.2); TROPONIN-I <0.06 ng/mL (<0.06)
[2019-03-16 21:52] LABS: ABSOLUTE NEUTROPHILS 20.4 thou/uL (1.4-8.2)
[2019-03-16 21:53] LABS: ANISOCYTOSIS 3+; PLATELET ESTIMATE NORMAL; POIKILOCYTOSIS 3+
[2019-03-16 23:57] LABS: APTT 31.5 Seconds (24.5-32.8); INR 1.2; PROTIME 12.3 Seconds (9.3-11.4)
[2019-03-17] VITALS (28 sets, daily range): BP systolic 81–109; BP diastolic 48–72
[2019-03-17] MEDS ORDERED: MARINOL5 MG PO (01:34)
[2019-03-17] MEDS ORDERED: MEGESTROL400 MG/11 PO (01:34)
[2019-03-17] MEDS ORDERED: KEYTRUDA100 MG/4 M IV (01:39)
--- NOTE | 2019-03-17 03:29 | NUR ---
RECEIVED REPORT FROM ER NURSE. PT ARRIVED TO ROOM AROUND 0100. ADMISSION HX AND ASSESSMENT COMPLETED CHARTER. DENIES ANY PAIN. VERY SOA W/ EXERTION. O2 SATS STABLE ON 5L NC. VSS. AFEBRILE. NO MAJOR COMPLAINTS AT THIS TIME. FALL PRECAUTIONS IN PLACE. PROGRESSING SLOWLY TOWARD POC GOALS. WILL CONTINUE TO MONITOR FURTHER.
--- NOTE | 2019-03-17 05:37 | NUR ---
AROUND 0500, PT CALLED OUT C/O TROUBLE BREATHING. PT WAS RESTING IN BED ON 5L NC. PT O2 SATS IN THE 50S ON 5L NC. TILE SHADER FOR HOSPITALIST AND RN AT BEDSIDE. PT PLACED ON 15L NRB. PT APPEARED VERY ANXIOUS AND TACHYPENIC. RT PAGED. PT PLACED ON CONTINUOUS PULSE OX AND MORPHINE GIVEN FOR AIR HUNGER. PT SATS NOW STABLE ON NRB MASK AND SHE STATED SHE IS FEELING SLIGHTLY BETTER. PT IS A MOUTH BREATHER AND O2 SATS DROP WHEN ON NC. WILL CONTINUE TO MONITOR CLOSELY.
[2019-03-17 06:52] LABS: BE(vivo) -2.7 mmol/L (-2 to +3); HCO3 20.4 mmol/L (22.0-26.0); PCO2 30.3 mmHg (35.0-45.0); PO2 72.6 mmHg (80.0-100.0); pH 7.445 (7.360-7.450); sO2 95.4 % (92.0-98.0)
--- NOTE | 2019-03-17 08:33 | EKG ---
[facility] [place] [address] ELECTROCARDIOGRAM REPORT Name: SHELLEYLAZARA Room #: 349-I ADM IN M.R.#: [id number] Admission: 03/16/19 Attend Phys: Jairo Price MD Discharge: Date of : 48 Report #: [id number] THIS REPORT FOR: //name// [facility] ED Test Date: 2019-03-16 Test Time: 20:10:02 Pat Name: LAZARA ROSA Department: Room: [facility] Gender: F Tack Cleaner: Haily PRASAD RN : 1950 Requested By: Zelda Dawkins Order Number: [id number] MD: Chino Dowling Measurements Intervals [place] Rate: 116 P: 76 CT: 162 QRS: 27 QRSD: 120 T: QT: 343 QTc: 477 Interpretive Statements Sinus tachycardia Premature supraventricular complexes are present Poor R wave progression Baseline wander in lead(s) V1 No previous ECGs available for comparison Electronically Signed On 03-17-2019 8:32:40 CERTIFIED MEDICAL ASST by Chino Dowling [email or web address] <ELECTRONICALLY SIGNED> By: Chion Dowling MD, [facility] [id number] 09 Chino Dowling MD, [facility] /EPI
--- NOTE | 2019-03-17 10:47 | NUR ---
0950 Report given to Annamarie ICU nurse. Pt transfered to 238. Pt belongings sent with pt. Called pt daughter to update her.
--- NOTE | 2019-03-17 12:29 | NUR ---
7339-RECEIVED PT INTO ICU 238 VIA BED.RT PAGED IMMED TO SET UP BIPAP (NOT BROUGHT DOWN W HER FROM ROOM).--VW 5641- CALLED EARLIER W UPDATE,ORDERS NOTED.DTR AT BEDSIDE,LONG D/W HER RE:PT CONDITION,POC. IN TO SEE.CARE TURNED OVER TO FLORENTINO,RN.--VW
--- NOTE | 2019-03-17 13:32 | 2DMMODE ---
[facility] [address] [place] [address] 2 D/M-MODE ECHOCARDIOGRAM Name: LAZARA ROSA Room #: 238-P [facility] IN ..#: [id number] Admission: 03/16/19 Attend Phys: Jairo Price, Discharge: Date of : 48 Report #: [id number] THIS REPORT FOR: //name// APPROVED REPORT Study performed: 03/17/2019 10:50:30 EXAM: Comprehensive 2D, Doppler, and color-flow Echocardiogram Patient Location: ICU Room #: 238 Status: routine BSA: 1.59 HR: 105 bpm BP: 94/58 mmHg Rhythm: Tachycardia Other Information Study Quality: Adequate Indications Dyspnea Hypertension/HDD Lung cancer 2D Dimensions RVDd: 37.53 mm IVSd: 8.85 (7-11mm) LVOT Diam: 23.30 (18-24mm) LVDd: 39.86 mm PWd: 7.56 (7-11mm) Ascending Ao: 29.28 (22-36mm) LVDs: 25.10 (25-40mm) Aortic Root: 31.69 mm IVC: 20.00 mm Volumes Left Atrial Volume (Systole) Single Plane 4CH: 44.21 mL Single Plane 2CH: 37.50 mL LA ESV Index: 27.00 mL/m2 Pulmonary Valve PV Peak Tariq.: 0.79 m/s PV Peak Gr.: 2.48 mmHg Tricuspid Valve TR Peak Tariq.: 3.35 m/s TR Peak Gr.: 44.86 mmHg PA Pressure: 55.00 mmHg [facility] [address] [place] [address] 2 D/M-MODE ECHOCARDIOGRAM Name: SHELLEYLAZARA Room #: 238-P [facility] IN [facility]#: [id number] Admission: 03/16/19 Attend Phys: Jairo Price, Discharge: Date of : 48 Report #: [id number] Left Ventricle The left ventricle is normal size. Paradoxical septal motion There is normal left ventricular wall thickness. The left ventricular systolic function is at the lower limits of normal. LVEF is 50%. This study is not technically sufficient to allow evaluation of the LV diastolic function. Right Ventricle The right ventricle is normal size. Right ventricle is mildly hypokinetic. Atria The left atrium size is normal. Right atrium is at the upper limits of normal. Aortic Valve The aortic valve is mildly calcified. No aortic regurgitation is present. There is no aortic valvular stenosis. Mitral Valve The mitral valve is normal in structure. There is no mitral valve regurgitation noted. No evidence of mitral valve stenosis. Tricuspid Valve The tricuspid valve is normal in structure. There is trace to mild tricuspid regurgitation. Estimated PAP 55 mmHg. There is moderate pulmonary hypertension. Pulmonic Valve The pulmonary valve is normal in structure. There is no pulmonic valvular regurgitation. Great Vessels The aortic root is normal in size. IVC is dilated and collapses >50% with inspiration. Pericardium There is a trace pericardial effusion. <Conclusion> The left ventricular systolic function is at the lower limits of normal. Paradoxical septal motion LVEF is 50%. The aortic valve is mildly calcified. No aortic regurgitation or stenosis. [facility] [place] [place] [address] 2 D/M-MODE ECHOCARDIOGRAM Name: LAZARA ROSA Room #: 238-P [facility] IN [facility].#: [id number] Admission: 03/16/19 Attend Phys: Jairo Price, Discharge: Date of : 48 Report #: [id number] The mitral valve is normal in structure. No mitral valve regurgitation. There is trace to mild tricuspid regurgitation. Estimated pulmonary artery pressure of 55 mmHg. There is a trace pericardial effusion. <ELECTRONICALLY SIGNED> By: Chino Dowling MD, FACC 03/17/19 133 30 30 Chino Dowling MD, FACC /INF
--- NOTE | 2019-03-17 20:10 | NUR ---
PT REMAINED ON BIPAP THROUGH OUT THE SHIFT - 100% FIO2. REMAINED TACHYPNIC. ENCOURAGED TO REST. BLOOD PRESSURES SOFT AFTER FLUID BOLUS. MAP ALWAYS MAINTAINED >60. DECREASED HOURLY URINE OUTPUT. SEE I/O'S. COMMUNICATED TO DR. REEVES. ORDER FOR 500CC FLUID BOLUS.
[2019-03-18] VITALS (52 sets, daily range): BP systolic 80–130; BP diastolic 38–108
[2019-03-18 04:54] LABS: HEMOGLOBIN 10.4 gm/dL (12.0-15.0); MCV 92.1 fL (80.0-100.0)
[2019-03-18 04:56] LABS: HEMATOCRIT 33.8 % (37.0-47.0); MCH 28.4 pg (26.0-34.0); MCHC 30.9 g/dL (28.0-37.0); PLATELET COUNT 168 thou/uL (150-400); RBC 3.67 mil/uL (4.20-5.00); RDW 24.8 % (10.5-14.5)
[2019-03-18 05:09] LABS: BE(vivo) -5.6 mmol/L (-2 to +3); HCO3 18.9 mmol/L (22.0-26.0); PCO2 33.4 mmHg (35.0-45.0); PO2 87.3 mmHg (80.0-100.0); sO2 96.5 % (92.0-98.0)
[2019-03-18 05:11] LABS: ALBUMIN 1.9 g/dL (3.4-5.0); CALCIUM 7.5 mg/dL (8.5-10.1); CREATININE 0.6 mg/dL (0.6-1.0); POTASSIUM 4.5 mmol/L (3.5-5.1); TOTAL BILIRUBIN 0.6 mg/dL (<0.1-1.0); TOTAL PROTEIN 4.9 g/dL (6.4-8.2)
[2019-03-18 05:23] LABS: WBC 48.1 thou/uL (4.0-11.0)
--- NOTE | 2019-03-18 06:58 | NUR ---
ASSUMED CARE OF PT AROUND 0130. ASSMTS DOCUMENTED. TOLERATED BiPAP. ABGs RESULTS SHOWED IMPROVEMENT AND RT PLACED PT ON 8L O2 NC, CURRENTLY MAINTAINING O2 SATS AROUND BETWEEN 91-95%. GLUCOSE LEVEL WAS LOW THIS AM. DRINKING APPLE JUICE WITH APPLE SAUCE, LEVELS INCREASING SLOWLY, CONTINUING TO MONITOR. BLOOD CULTURE RESULTED POSITIVE WITH GRAM+ BACTERIA, MERCURY RECOVERER NOTIFIED. CURRENTLY AWAKE, ORIENTED AND WATCHING TV, NO ACUTE DISTRESS. PROGRESSING WELL TOWARDS POC GOALS.
--- NOTE | 2019-03-18 07:01 | HC ---
[facility] [place] [address] CONSULTATION Name: LAZARA ROSA Room #: 238-P ADM IN M.R.#: [id number] Admission: 03/16/19 Attend Phys: Jairo Price MD Discharge: Date of : 48 Report #: [id number] THIS REPORT FOR: //name// CC: Donato Degroot MD REASON FOR CONSULTATION: Bilateral pulmonary emboli with history of stage IV adenocarcinoma and history of CLL. HISTORY OF PRESENT ILLNESS: The patient is a 68-year-old female followed by Dr. Rakesh Degroot at [facility] office who was diagnosed with pleural involved and malignant pleural effusion, adenocarcinoma back in 12/2018. The patient reports she has been on pembrolizumab and reports that she is responding. We do not have the details. She recently became more short of breath over the last couple of days and also had a fever here. She denies headache, mouth sores, ear troubles, bleeding in her urine or stool, abdominal pain, leg swelling, though she does have some right calf edema on exam, any abdominal pain, any awareness of lymphadenopathy. Scan here showed large pulmonary emboli, describes as extensive, seen as proximal as a distal bilateral main pulmonary arteries, no CT evidence of right heart dysfunction. There is also some appearing irregular nodule within the left medial apex measuring 2.7 x 0.7 cm, numerous tiny subpleural and pleural based nodules suspicious. Significant interval decrease in size of a small to moderate left pleural effusion. Nodularity in the bilateral adrenal glands is unchanged. PAST MEDICAL HISTORY: Notable for now bilateral pulmonary emboli, also history of stage IV adenocarcinoma of the lung, CLL originally diagnosed in 2002, status post 2 cycles of FCR with slow progression not requiring therapy, also history of hyperlipidemia, history of shingles with postherpetic neuralgia, also probable glaucoma as I noted the patient is on glaucoma type eyedrops, also hypertension. FAMILY HISTORY: No one newly diagnosed with cancer. She does have a daughter and another family member with MS. SOCIAL HISTORY: Stopped smoking 16 years ago, maybe a beer per month, but none recently. 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 Lives [place] about [place]. MEDICATIONS: Medications in the hospital currently include latanoprost eyedrops at bedtime; atorvastatin 20 at bedtime; Lovenox now 60 b.i.d.; megestrol 20 mg daily, should probably consider stopping that given her history of clots; also Celexa 200 mg daily, used with caution; loratadine 10 mg daily; dronabinol 5 mg b.i.d. with meals; ipratropium and albuterol respiratory therapy q. [address] [address] CONSULTATION Name: SHELLEYLAZARA Hermelindo Room #: 238-P [facility] IN M.R.#: [id number] Admission: 03/16/19 Attend Phys: Jairo Price MD Discharge: Date of : 48 Report #: [id number] inhalation; pantoprazole 40 daily; gabapentin 300 t.i.d.; morphine sulfate IV p.r.n.; Tylenol p.r.n.; Zofran p.r.n.; Compazine 10 mg b.i.d. p.r.n. PHYSICAL EXAMINATION: VITAL SIGNS: The patient appears her stated age. She is 5 feet 5 inches, which is 165.1 cm; weight is 119.8 pounds or 54.3 kilograms. Blood pressure recently 94/58, respirations 36, O2 sat 97% on nonrebreather, pulse 110, temperature 99 axillary. GENERAL: She is alert and pleasant, slightly anxious and short of air. NEUROLOGIC: Face is symmetrical. Speech and thought pattern appear to be normal. She is moving arms and legs appropriately. NECK: No definitely enlarged lymph nodes in the neck, though there may be some slight smudge lymph nodes in the left or right axilla. ABDOMEN: Appears to be without hepatosplenomegaly. HEART: Regular rate, slightly tachycardic. LUNGS: Slight occasional cough, no wheezes or definitive rhonchi. There were something cleared after a cough. EXTREMITIES: Does have some swelling of the right calf. LABORATORY DATA: Notable for potassium 5.5, creatinine 0.7, AST 26, total bilirubin 1.2, total protein 5.9, albumin 2.5, INR of 1.2, APTT 31.5. White count 60,000, had been as high as 66, even 126,000 in recent times. Recent hemoglobin 11.7, MCV 90.3, platelets 167, which is down a little bit from the normal mid-200s. ANC is 20.4, which is up from past 10,000. Influenza tests were negative. UA not available. RADIOLOGIC STUDIES: As mentioned above included the CTA chest with PE protocol showing the extensive bilateral pulmonary emboli, seen as proximal as a distal bilateral pulmonary arteries. No CT evidence of heart strain and the lung mass slightly unchanged, improvement in the left pleural effusion. ASSESSMENT AND PLAN: 1. Bilateral pulmonary emboli with swollen right calf. Ultrasound has been ordered. Agree with Lovenox, though could consider switching to Xarelto or other oral agents when appropriate. No history of bleeding per the patient. 2. Respiratory failure, increase O2 needs, also use of nebulizers will defer to Pulmonary as I believe they have been consulted. 3. History of left lung cancer, improvement in pleural effusion. The patient reports improvement, hold Keytruda while in the hospital. 4. Chronic lymphocytic leukemia. White count elevated, but neutrophils good. No indication for therapy, maybe questionable axillary adenopathy. 5. Hypertension. Meds per others. She had been on NOEL inhibitor. 6. Zoster pain. Continue gabapentin as needed. 7. Hyperlipidemia, on statin. 8. History of tobaccoism, continued stopping. 9. Possible emphysema or underlying lung disease. Continue inhalers. [facility] [address] [place] [address] CONSULTATION Name: LAZARA ROSA Hermelindo Room #: 238-P [facility] IN M.R.#: [id number] Admission: 03/16/19 Attend Phys: Jairo Price MD Discharge: Date of : 48 Report #: [id number] 10. Appetite. Given clot, would probably consider holding Megace, could consider Remeron if appetite stimulant needed. <ELECTRONICALLY SIGNED> By: Jc Araujo MD 03/18/19 0701 [id number] [id number] Jc Araujo MD /nt
[2019-03-18 13:41] LABS: ABSOLUTE NEUTROPHILS 11.1 thou/uL (1.4-8.2); ATYPICAL LYMPHS 4 %
[2019-03-18 13:43] LABS: ANISOCYTOSIS 3+; OVALOCYTES FEW
--- NOTE | 2019-03-18 15:33 | NUR ---
PT ADMITTED RELATED TO LABORED BREATHING AT HOME, BILAT PE'S. CM REVIEWED CHART AND SPOKE WITH CARE TEAM. CM MET WITH PT AND DTR AT BEDSIDE THIS DAY. PT IS A&O X4. CM ROLE INTRODUCED. PT INDICATED THAT SHE LIVES ALONE IN A HOUSE WITH NO STEPS TO ENTER AND NO STEPS INSIDE. 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 PT INIDCATED SHE HAD BEEN INDEPDENENT WITH ADLS CARD PLAYER. PT INDICATED NO HH OR SKILLED HISTORY. PT INDICATED SHE DOENS'T HAVE OXYGEN OR A NEBULIZER FOR HOME USE. PT AND DTR STATED THAT THEY HOPE FOR PT TO BE ABLE TO RETURN HOME ONCE MEDICALLY STABLE. CM TO FOLLOW INDICATED WITH DC PLANNING. PT NEEDING 8L O2 AT THIS TIME. CASE TEAM INDICATED THAT PT WILL LIKELY BE HERE A FEW DAYS.
[2019-03-18 18:36] LABS: HEMOGLOBIN 10.3 gm/dL (12.0-15.0)
[2019-03-18 18:38] LABS: MCH 28.5 pg (26.0-34.0); MCHC 31.2 g/dL (28.0-37.0); MCV 91.2 fL (80.0-100.0); RBC 3.61 mil/uL (4.20-5.00); RDW 24.4 % (10.5-14.5)
[2019-03-18 18:48] LABS: INR 1.2; PROTIME 12.7 Seconds (9.3-11.4)
--- NOTE | 2019-03-18 19:00 | NUR ---
PATIENT NOT PROGRESSING TOWARDS OUTCOME GOALS SHE IS MEETING SEPSIS WITH LOW BP, ELEVATED TEMP INCREASED RR AND NOW ON CPAP WITH FIO2 AT 75%. URINE OUTPUT REMAINS LOW. DR REEVES UPDATED TO PATIENT STATUS.
[2019-03-19] VITALS (75 sets, daily range): BP systolic 80–134; BP diastolic 37–78
[2019-03-19 04:35] LABS: HEMOGLOBIN 10.1 gm/dL (12.0-15.0)
[2019-03-19 04:37] LABS: HEMATOCRIT 33.2 % (37.0-47.0); MCHC 30.3 g/dL (28.0-37.0); MCV 92.2 fL (80.0-100.0); RBC 3.6 mil/uL (4.20-5.00); RDW 24.3 % (10.5-14.5)
[2019-03-19 04:42] LABS: WBC 53.4 thou/uL (4.0-11.0)
[2019-03-19 04:45] LABS: CREATININE 0.6 mg/dL (0.6-1.0); POTASSIUM 3.9 mmol/L (3.5-5.1)
--- NOTE | 2019-03-19 05:38 | NUR ---
AT 2030 PT. WENT INTO SINUS ARRHTYHMIA AND WOULD JUMP INTO THE 180S AND 190S. DR. DUENAS AND HELEN GILLIS WERE NOTIFIED AND AMIODARONE WAS STARTED. NO FUTHER OVERNIGHT EVENTS. VSS. MEDICATION TITRATION CHARTED. ASSESSMENTS CHARTED. PT. IS MORE AWAKE THIS MORNING AND HAS BEEN MOVING AROUND MORE IN BED. CONTINUE TO FOLLOW POC. WILL CONITNUE TO MONITOR.
--- NOTE | 2019-03-19 11:59 | EKG ---
[place] [address] [facility] [place] [address] ELECTROCARDIOGRAM REPORT Name: SHELLEYLAZARA Room #: 238- ADM IN M.R.#: [id number] Admission: 03/16/19 Attend Phys: Jairo Price MD Discharge: Date of : 48 Report #: [id number] THIS REPORT FOR: //name// [facility] Test Date: 2019-03-18 Test Time: 20:45:07 Pat Name: LAZARA ROSA Department: Room: 238 Gender: F Casting Finisher: ELZA : 1950 Requested By: Jairo Price Order Number: [id number] MD: Chino Dowling Measurements Intervals [place] Rate: 121 P: 70 CT: 162 QRS: 58 QRSD: 73 T: 49 QT: 300 QTc: 426 Interpretive Statements Sinus arrhythmia Occasional atrial premature complexes Poor R wave progression No previous ECGs available for comparison Electronically Signed On 03-19-2019 11:58:37 RATE REVIEWER by Chino Dowling [email or web address] <ELECTRONICALLY SIGNED> By: Chino Dowling MD, [facility] 03/19/19 1158 44 Chino Dowling MD, FACC /EPI
--- NOTE | 2019-03-19 19:12 | NUR ---
PATIENT ALERT AND ORIENTED X4, NO COMPLAINTS OF PAIN. ON 9L HIGHFLOW NASAL CANNULA, TOLERATED WELL. 02 SAT REMAINED ABOVE 92. PATIENT IN BED THROUGHT THE SHIFT, TURNED Q2H. VISITED WITH FAMILY. PLAN OF CARE DISCUSSED WITH PATIENT AND FAMILY. NO SIGNS OF ACUTE DISTRESS NOTED AT THIS TIME. WILL CONTINUE TO MONITOR.
--- NOTE | 2019-03-19 19:18 | NUR ---
PATIENT ALERT AND FOLLOWS COMMANDS. RESTRAINTS APPLIED DUE TO PATIENT'S AWARENESS OF VENTILATOR. FIO2 WEANED TO 70%. WOUND VAC INTACT. CENTRAL LINE IN PLACE WHERE LEVOFED, VASOPRESSIN, AND SPENCER IS MAXED. EPINEPHRINE WEANED TO 2 MCG, MAP REMAINED ABOVE 60. BLOOD SUGAR MONITORED CLOSELY. HOLLAND AND FECAL MANAGEMENT SYSTEM IN PLACE. PLAN OF CARE DISCUSSED WITH PATIENT, PATIENT NEEDS RE-EDUCATION. NO SIGN OF ACUTE DISTRESS NOTED AT THIS TIME. WILL CONTINUE TO MONITOR.
[2019-03-20] VITALS (10 sets, daily range): BP systolic 81–101; BP diastolic 43–65
--- NOTE | 2019-03-20 04:29 | NUR ---
NO OVERNIGHT EVENTS. PT. STAYED ON HIGH FLOW NC COMFORTABLY ALL NIGHT. PT COMPLAINS OF INCREASED AMOUNT OF LOOSE STOOL THROUGHOUT NIGHT. PT. RECEIVED DOSE OF LASIXX DURING AM SHIFT, ADEQUATE URINARY OUTPUT AT BEGINNING OF SHIFT, BUT HAS SLOWED DOWN THROUGHOUT THE SHIFT. SEE I&O DOCUMENTATION. ASSESSMENTS AND VITAL SIGNS CHARTED. MEDICATION TITRATION CHARTED. CONTINUE TO FOLLOW POC. WILL CONTINUE TO MONITOR.
[2019-03-20 05:12] LABS: HEMATOCRIT 30.5 % (37.0-47.0); HEMOGLOBIN 9.5 gm/dL (12.0-15.0); MCH 28.4 pg (26.0-34.0); MCHC 31.1 g/dL (28.0-37.0); MCV 91.3 fL (80.0-100.0); RBC 3.34 mil/uL (4.20-5.00); RDW 23.5 % (10.5-14.5); WBC 31.8 thou/uL (4.0-11.0)
[2019-03-20 05:34] LABS: CALCIUM 6.9 mg/dL (8.5-10.1); CREATININE 0.6 mg/dL (0.6-1.0); POTASSIUM 3.1 mmol/L (3.5-5.1)
--- NOTE | 2019-03-20 18:27 | NUR ---
ASSESSMENTS AND INTERVENTIONS DOCCUMENTED. PATIENT HAVING LOOSE STOOLS. PATIENT PLACED ON C.DIFF PRECAUTIONS AND LABS SENT DOWN. PATIENT RESPIRATIONS IN THE 40'S AND REFUSING BIPAP. PATIENT EDUCATED ON THE USE OF BIPAP BUT STILL REFUSING. DR. REEVES PAGED IN REGARDS TO PATIENT'S LOW URINE OUTPUT. PATIENT HAD 250 THROUGH OUT THE SHIFT AND STATED HE IS AWARE AND FOLLOWING THE PATIENT NO NEW ORDERS RECIEVED. PATIENT TRANSFERRED TO CCU REPORT GIVEN TO MARY SMITH.
--- NOTE | 2019-03-20 19:04 | NUR ---
ASSUMED CARE OF PATIENT AT 1830 FROM ICU TRANSFER. PATIENT IS ON BEDREST AND DAUGHTER IS AT THE BEDSIDE. ASSESSMENT COMPLETED AND CHARTED. TELE STRIP PRINTED AND PLACED IN CHART. DR. REEVES MADE AWARE OF 250ML OUTPUT VIA HOLLAND CATHETER. CARDIZEM AND HEPARIN DRIPS RUNNING. PT TO CONTINUE WITH POC.
--- NOTE | 2019-03-21 00:32 | NUR ---
CARDIZEM GTT OFF AT 0025
[2019-03-21 04:40] VITALS: BP 107/61
--- NOTE | 2019-03-21 04:42 | NUR ---
NO OVERNIGHT EVENTS. PT. RESTED WELL THROUGHOUT NIGHT. NO COMPLAINTS OF SOB AND NO NEED FOR BIPAP. ASSESSMENTS AND VITAL SIGNS CHARTED. MEDICATION TITRATION CHARTED. WILL CONTINUE TO MONITOR.
[2019-03-21 05:34] LABS: HEMATOCRIT 29.8 % (37.0-47.0); HEMOGLOBIN 9.2 gm/dL (12.0-15.0); MCH 28.3 pg (26.0-34.0); MCHC 31.1 g/dL (28.0-37.0); RBC 3.27 mil/uL (4.20-5.00); RDW 23.9 % (10.5-14.5); WBC 31.9 thou/uL (4.0-11.0)
[2019-03-21 05:49] LABS: CALCIUM 7.4 mg/dL (8.5-10.1); CREATININE 0.6 mg/dL (0.6-1.0); POTASSIUM 3.9 mmol/L (3.5-5.1)
--- NOTE | 2019-03-21 06:07 | HC ---
[facility] [place] [address] CONSULTATION Name: SHELLEYLAZARA Hermelindo Room #: 218-P ADM IN M.R.#: [id number] Admission: 03/16/19 Attend Phys: Jairo Price MD Discharge: Date of : 46 Report #: [id number] THIS REPORT FOR: //name// CC: Donato Price DATE OF SERVICE: 03/20/2019 INFECTIOUS DISEASE CONSULTATION ATTENDING PHYSICIAN: Dr. Jairo Price. REASON FOR EVALUATION: Staphylococcus septicemia. HISTORY OF PRESENT ILLNESS: Chart reviewed, patient examined. This is a 68-year-old woman with extensive medical history, has known history of non-small cell carcinoma of the lung with malignant effusions, undergoing biologic therapy with Keytruda over the course of the last few months, previous known history of CLL as well; was admitted through the Emergency Room on 03/16 with progressive dyspnea, weakness; did have some low-grade temperature elevation as well. She does admit to chills. As per the initial evaluation underwent blood cultures, now with multiple bottles growing Staphylococcus pettenkoferi, followup cultures on 03/18, gram-positive cocci as well, urine with gram-negative hazel. She has been empirically started on vancomycin as well as aztreonam. At this point, she is fairly lucid. She appears chronically ill. She denies significant amount of pain at this point, requests she go home. She has a poor appetite. She states she has lost upwards of 40 pounds over the course of the last 3 months. She is maintained on nasal cannula oxygen. ALLERGIES: PENICILLIN, TETRACYCLINES, CEPHALOSPORINS, ERYTHROMYCIN, SULFA, QUINOLONES. CURRENT MEDICATIONS: Include vancomycin, methylprednisolone, insulin sliding scale, aztreonam, p.r.n. analgesics, antiemetics, loratadine, pantoprazole, gabapentin. PAST MEDICAL HISTORY: As described above; includes CLL, diagnosed greater than 15 years ago, has not been treated recently; adenocarcinoma of the left lung, stage IV; hypertension, COPD with emphysematous changes. SOCIAL HISTORY: Former smoker. No illicit drug use, only rare ethanol. FAMILY HISTORY: Noncontributory. REVIEW OF SYSTEMS: As above. Does admit to some loose stools that have been ongoing, usually associated with some incontinence. [address] [address] CONSULTATION Name: LAZARA ROSA Room #: 218-P [facility] IN M.R.#: [id number] Admission: 03/16/19 Attend Phys: Jairo Price MD Discharge: Date of : 46 Report #: [id number] PHYSICAL EXAMINATION: GENERAL: She appears chronically ill, undernourished; is pleasant, cooperative. She is fairly lucid. VITAL SIGNS: Temperature 97.4, pulse 87, respirations 24, blood pressure is 96/56. SKIN: Warm, dry. No rashes. HEENT: Normocephalic. Extraocular muscles intact. NECK: Supple. LUNGS: Somewhat diminished scattered coarse breath sounds, left greater than right. HEART: Regular, occasional ectopy, soft systolic murmur. ABDOMEN: Soft, nontender, nondistended. EXTREMITIES: No cyanosis. GENITOURINARY: Deferred. RECTAL: Deferred. LABORATORY DATA: Blood cultures as described above. Electrolytes; sodium 141, potassium 3.1, chloride 112, bicarbonate is 18, BUN and creatinine 11 and 0.6 with anion gap of 11, glucose of 125, estimated GFR of 120. CBC; white count of 31.8, down from 53.4; H 9.5 and 30.5, platelets of 184. ProBNP elevated at 4622. IMAGING: CTA chest PE protocol reveals extensive bilateral pulmonary emboli. No evidence of right heart dysfunction. Irregular nodule within the medial left apex, 2.7 x 0.7 cm in size; numerous tiny subpleural, pleural based nodules on the left, suspicious for metastatic disease. ASSESSMENT AND PLAN: Staphylococcal pettenkoferi septicemia; this is an unusual organism, but based on susceptibilities, MICs to vancomycin of 1, this would be a reasonable option at this point. I suspect coag negative isolate. At this point, she is not overtly toxic; would expect to treat it at least in 2 to 4 weeks. Secondly, appears to have a complicated urinary tract infection, although there is no urinalysis. Given the whole host of antibiotics hypersensitivities/adverse drug effects, ____ is an option as well to see how she does clinically; I would expect an abbreviated course for that. She certainly is at high risk for nosocomial related infectious complications; we will have to monitor expectantly. Any effort to improve her nutritional status is warranted. Clearly, she is undernourished with an albumin of less than 2. We will discuss with Dr. Jung. <ELECTRONICALLY SIGNED> By: Ori Peterson MD 03/21/19 [id number] Ori Peterson MD /nt
[2019-03-21 08:00] VITALS: BP 102/66
--- NOTE | 2019-03-21 10:26 | NUR ---
Phys sp with patient and discussed her weakness and need for post acute care rehab. [employer] post acute care list given to dtr to review. patient to work with therapy for auth from insurance for transition to post acute care. patient will be in patient in rehab. Duration unknown at this time.
--- NOTE | 2019-03-21 10:52 | NUR ---
Patient admits with weakness. She is currently on oxygen, sp with Dr Willett, dtr and patient and discussed post acute care. Faxed patients [place] paperwork. Therapy evals orders. Updated dtr with [employer] list for post acute care.
[2019-03-21 12:44] VITALS: BP 99/61
--- NOTE | 2019-03-21 15:54 | NUR ---
pt resting in bed, up to chair with PT, back to bed with OT about 15 minutes later, pt sitting in bed with eyes shut, easily arousable. Said, "I want to rest in bed for a while." Will encourage exercise and monitor.
[2019-03-21 16:00] VITALS: BP 105/54
--- NOTE | 2019-03-21 16:59 | NUR ---
Dtr reports interest in [facility] acute rehab. Friends have rec good acute rehab. Referral to [facility]. Dtr questions if patient able to rec her imunosupression medication at rehab. her next date is Apr 07 for treatment. She has rec [address] [facility] to [facility] in am
[2019-03-21 19:25] VITALS: BP 110/65
[2019-03-22 01:47] LABS: HEMATOCRIT 30.4 % (37.0-47.0); HEMOGLOBIN 9.4 gm/dL (12.0-15.0); MCH 28.2 pg (26.0-34.0); MCV 90.9 fL (80.0-100.0); RBC 3.34 mil/uL (4.20-5.00); RDW 24.3 % (10.5-14.5); WBC 38.5 thou/uL (4.0-11.0)
[2019-03-22 01:50] LABS: CALCIUM 7.6 mg/dL (8.5-10.1); CREATININE 0.6 mg/dL (0.6-1.0); POTASSIUM 3.4 mmol/L (3.5-5.1)
--- NOTE | 2019-03-22 02:39 | NUR ---
ASSUMED CARE OF PATIENT AT 1900. VSS, AFEBRILE. VERY FLAT AFFECT. DENIES PAIN, SOA OR N/V. APTT MONITORED, HEPARIN GTT INFUSING. VANC TROUGH DRAWN, THERAPEUTIC RANGE RESULTS. POTASSIUM REPLACED PER PROTOCOL. WILL REDRAW IN AM. WORKING TOWARDS POC GOALS.
[2019-03-22 05:05] VITALS: BP 121/66
[2019-03-22 06:54] LABS: MAGNESIUM 1.7 mg/dL (1.8-2.4); POTASSIUM 4.1 mmol/L (3.5-5.1)
[2019-03-22 08:00] VITALS: BP 136/85
--- NOTE | 2019-03-22 11:29 | NUR ---
ASSUMED CARE AT 0700, SHIFT ASSESSMENT DONE, MEDS GIVEN, VSS, DENIES PAIN, NAUSEA, VOMITING. ON HEPARIN DRIP, RECEIVING NORMAL SALINE. NSR WITH 1ST DEGREE BLOCK ON MONITOR, REMAINS ON HIGH FLOW 5L NASAL CANULA. HOLLAND HAS ADEQUATE OUTPUT. WILL CONTINUE TO ASSESS AND ASSIST WITH ADLs NEEDED.
[2019-03-22 12:19] VITALS: BP 114/72
[2019-03-22 16:00] VITALS: BP 142/74
--- NOTE | 2019-03-22 16:10 | NUR ---
[facility] acute rehab evaled patient they have not made decision on acceptance. Heparin to dc today, they are awaiting final cultures. Faxed prelimanary report.
[2019-03-22 20:00] VITALS: BP 142/74
[2019-03-23 04:40] VITALS: BP 132/83
--- NOTE | 2019-03-23 05:22 | NUR ---
PATIENTS CARES WERE ASSUMED AT SHIFT CHANGE. PATIENT WAS ASSESSED AND MEDS WERE PASSED. PATIENT DID SLEEP MOST OF THIS SHIFT. SHE HAD NO REQUEST. PATIENT ALSO DENIED ANY PAIN OR NAUSEA. HOURLY ROUNDING WAS DONE. THE BED IS IN A LOW AND LOCKED POSITION. THE BED ALARM IS ON.
[2019-03-23 05:51] LABS: HEMOGLOBIN 9.1 gm/dL (12.0-15.0)
[2019-03-23 05:54] LABS: HEMATOCRIT 29.7 % (37.0-47.0); MCH 28.3 pg (26.0-34.0); MCHC 30.8 g/dL (28.0-37.0); RBC 3.22 mil/uL (4.20-5.00); RDW 23.9 % (10.5-14.5)
[2019-03-23 06:11] LABS: CALCIUM 7.1 mg/dL (8.5-10.1); CREATININE 0.6 mg/dL (0.6-1.0); POTASSIUM 3.9 mmol/L (3.5-5.1)
[2019-03-23 06:12] LABS: WBC 51.8 thou/uL (4.0-11.0)
[2019-03-23 08:41] VITALS: BP 118/63
--- NOTE | 2019-03-23 12:06 | NUR ---
patient denied acute rehab at [facility] due to they feel patient better served at [facility] rehab, Discussed with dtr. She requests [facility]. Updated [facility].
[2019-03-23 12:22] VITALS: BP 116/55
--- NOTE | 2019-03-23 17:15 | NUR ---
CONSULT FOR [facility] RECEIVED ON THIS Pt. DR. XAVIER SAW Pt. Pt IS GOOD CANDIDATE FOR REHAB. CALLED [employer] AND SPOKE WITH KEYA VIA [phone]. RECEIVED REF #[id number]. WILL FAX CLINICAL INFORMATION FOR INSURANCE TO REVIEW FOR AUTHORIZATION. THANK YOU FOR THIS REFERRAL.
[2019-03-23 18:33] VITALS: BP 109/57
[2019-03-23 19:36] VITALS: BP 123/72
--- NOTE | 2019-03-23 20:27 | NUR ---
ASSUMMED PT CARE AT APPROXIMATELY 0700. PT A&O X4. ASSESSMENT CHARTED. FALL PRECAUTIONS IN PLACE. PT DENIES HAVING CHEST PAIN. PT DENIES HAVING ACUTE PAIN. PT DENIES HAVING SOB. BLOOD SUGARS STABLE. VITAL SIGNS STABLE. IMPLEMENTED ORDERS TO TITRATE PT'S O2 NC DOWN. ORDER FOLLOWED. PT O2 STAT STABLE. NOTIFIED OF PT'S CONCERN OF EDEMA. STATED HE WOULD LOOK AND IMPLEMENT ORDERS. PT COMFORTABLE IN BED. PT DENIES HAVING FURTHER CONCERNS. PT AND PT'S FAMILY EDUCATED ABOUT POC. PT AND PT'S FAMILY STATED UNDERSTANDING AND DENIED HAVING FURTHER QUESTIONS.
[2019-03-24 04:53] VITALS: BP 137/79
[2019-03-24 05:19] LABS: CALCIUM 7.1 mg/dL (8.5-10.1); CREATININE 0.5 mg/dL (0.6-1.0)
[2019-03-24 05:32] LABS: HEMOGLOBIN 9.7 gm/dL (12.0-15.0); MCHC 30.7 g/dL (28.0-37.0)
--- NOTE | 2019-03-24 05:34 | NUR ---
ASSUMED CARE FROM DAY SHIFT PT RESTING IN BED ANTHROPOLOGY INSTRUCTOR SHOWS ARRTHYMIA 76, DENIES SOA IV FLUIDS INFUSING WELL, LUNG SOUNDS DIMINISHED THROUGHOUT , PO MEDICATION TAKEN WITH SMALL SNACK TOLERATED WELL, PT RESTED WELL THROUGHOUT HOURLY ROUNDS. WILL CONTINUE WITH CURRENT PLAN OF CARE AND WILL REPORT CHANGES AND ABNORMAL FINDINGS.
[2019-03-24 05:35] LABS: HEMATOCRIT 31.6 % (37.0-47.0); MCH 28.1 pg (26.0-34.0); MCV 91.4 fL (80.0-100.0); RBC 3.46 mil/uL (4.20-5.00)
[2019-03-24 06:06] LABS: WBC 59.4 thou/uL (4.0-11.0)
[2019-03-24 08:15] VITALS: BP 116/62
[2019-03-24 11:00] VITALS: BP 114/72
--- NOTE | 2019-03-24 15:20 | NUR ---
Tobacco Baler visited with the pt at bedside and dtr Lilian via phone. [facility] has accepted the pt and has a bed for her if approved by her insurance plan. They have submitted for ins auth. Care team updated. The pt was indep and working in the recent past. She is motivated and wants to regain her strength. Awaiting insurance authorization.
--- NOTE | 2019-03-24 16:28 | NUR ---
ASSUMED CARE PT SHIFT CHANGE. ASSESSMENTS CHARTED. MEDS GIVEN PER MAY. PT ALERT AND ORIENTED. VSS. DENIES PAIN. O2 SATS WNL ON 3L O2. PT UP TO COMMODE X1-2 TOLERATING FAIR. PT RECEIVED SPONGE BATH PER OT STAFF- TOLERATING WELL. ORDER FOR TELEMETRY TO BE STOPPED THIS SHIFT. PT TO BE TRANSFERRED TO [facility] FLOOR ROOM 444 REPORT CALLED TO TRAE. DENIES NEEDS AT THIS TIME. PT WILL BE TRANSFERRED ONCE ROOM IS CLEAN.
[2019-03-24 17:25] VITALS: BP 161/82
[2019-03-24 19:17] VITALS: BP 131/81
--- NOTE | 2019-03-25 03:42 | NUR ---
Patient making progress towards outcome goals. Vital signs stable. Uses call light appropraitely for needs. Denaies pain. IVFluids infusing. Plan rehab transfer pending insurance approval.
[2019-03-25 04:22] VITALS: BP 130/85
[2019-03-25 09:06] VITALS: BP 138/78
--- NOTE | 2019-03-25 12:11 | NUR ---
PT CARE ASSUMED AT 0700. A&Ox2. PT ACHS WITH NO COVERAGE NEEDED. PT UP WITH PT AND DID GOOD WITH 1 ASSIST. PT BRAD CATH PATENT WITH NO REDNESS OR SWELLING. EXTREMITIES WITH +1 EDEMA ON LOWER AND UPPER EXTREMITIES. REHAB ORDERES ARE IN PLACE AND AIR BRAKE WORKER INFORMED DAUGHTER OF TRANSFER TO NEW UNIT WITH BED 511. AWAITING DISCHARGE ORDERS FOR TRANSFER. LUNGS CLEAR.
--- NOTE | 2019-03-25 12:13 | NUR ---
Following for d/c planning needs. Received message from [facility] liaison officer stating insurance has authorized rehab stay. Called daughter to let her know and answer questions re: Rehab unit. RN aware of d/c plans. No other needs identified.
[2019-03-25 12:59] VITALS: BP 122/67
[2019-03-25] MEDS ORDERED: IPRAT-ALBUT 0.5-3 ML INH (13:13)
[2019-03-25] MEDS ORDERED: ELIQUIS5 MG PO (13:14)
[2019-03-25] MEDS ORDERED: CARDIZEM30 MG PO (13:14)
[2019-03-25] MEDS ORDERED: PREDNISONE 10 M10 M1 PO (13:16)
[2019-03-25] MEDS ORDERED: VANCO 1 GR1 GM/250 M IVPB (13:17)
== END 2019-03-25 14:52 | DRG 871 ==
LOC: ER 19:59 → 3W 23:38 → EROBS 23:38 → ICU 23:38 → 3W 03-17 00:48 → ICU 03-17 09:55 → 2N 03-20 18:21 → ENTRNSPT 03-24 16:34 → 4S 03-24 16:54 → EDTRNSPTSTS 03-25 10:47 → 4S 03-25 14:52
PROVIDERS: Emergency Medicine; Hospitalist; Internal Medicine Pulmonary Disease; Nurse Practitioner Acute Care; Pediatrics; Physician Assistant; ADMIT Internal Medicine
PROC: 5A09357 Assistance with Respiratory Ventilation, Less than 24 Consecutive Hours, Continuous Positive Airway Pressure (ICD-10-PCS; principal; 2019-03-17)
PROC: 5A09357 Assistance with Respiratory Ventilation, Less than 24 Consecutive Hours, Continuous Positive Airway Pressure (ICD-10-PCS; 2019-03-18)
PROC: 5A09357 Assistance with Respiratory Ventilation, Less than 24 Consecutive Hours, Continuous Positive Airway Pressure (ICD-10-PCS; 2019-03-19)
PROC: 5A09357 Assistance with Respiratory Ventilation, Less than 24 Consecutive Hours, Continuous Positive Airway Pressure (ICD-10-PCS; 2019-03-20)
PROC: 5A09357 Assistance with Respiratory Ventilation, Less than 24 Consecutive Hours, Continuous Positive Airway Pressure (ICD-10-PCS; 2019-03-21)
DX: A41.9 Sepsis, unspecified organism (principal); I26.99 Other pulmonary embolism without acute cor pulmonale; J96.01 Acute respiratory failure with hypoxia; E43 Unspecified severe protein-calorie malnutrition; C91.10 Chronic lymphocytic leukemia of B-cell type not having achieved remission; C34.90 Malignant neoplasm of unspecified part of unspecified bronchus or lung; B02.23 Postherpetic polyneuropathy; N39.0 Urinary tract infection, site not specified; I82.403 Acute embolism and thrombosis of unspecified deep veins of lower extremity, bilateral; C38.4 Malignant neoplasm of pleura; D68.59 Other primary thrombophilia; E87.2 Acidosis; R65.20 Severe sepsis without septic shock; E78.5 Hyperlipidemia, unspecified; I10 Essential (primary) hypertension; J43.9 Emphysema, unspecified; Z66 Do not resuscitate; B95.8 Unspecified staphylococcus as the cause of diseases classified elsewhere; E87.5 Hyperkalemia; R53.1 Weakness; R91.1 Solitary pulmonary nodule; D64.9 Anemia, unspecified; R50.9 Fever, unspecified; I48.91 Unspecified atrial fibrillation; I95.9 Hypotension, unspecified; R19.7 Diarrhea, unspecified; Z90.89 Acquired absence of other organs; Z79.891 Long term (current) use of opiate analgesic; Z90.710 Acquired absence of both cervix and uterus; Z79.899 Other long term (current) drug therapy; Z88.1 Allergy status to other antibiotic agents; Z88.0 Allergy status to penicillin; Z88.8 Allergy status to other drugs, medicaments and biological substances; Z87.891 Personal history of nicotine dependence; Z68.26 Body mass index [BMI] 26.0-26.9, adult; Z86.711 Personal history of pulmonary embolism; Z79.01 Long term (current) use of anticoagulants; Z84.89 Family history of other specified conditions; Z23 Encounter for immunization
CPT/HCPCS: 10078; 10081; 10102; 10797

== ENCOUNTER 2019-03-25 11:42 | Inpatient (IN) | payer OTHER ==
[~2019-03-25] VITALS: Ht 165.1 cm; Wt 68.6 kg
[~2019-03-25 11:42] MED LIST changes: +KEYTRUDA100 MG/4 M IV; +MARINOL5 MG PO; +MEGESTROL400 MG/11 PO
[2019-03-25] MEDS ORDERED: IPRAT-ALBUT 0.5-3 ML INH (13:13)
[2019-03-25] MEDS ORDERED: ELIQUIS5 MG PO (13:14)
[2019-03-25] MEDS ORDERED: CARDIZEM30 MG PO (13:14)
[2019-03-25] MEDS ORDERED: PREDNISONE 10 M10 M1 PO (13:16)
[2019-03-25] MEDS ORDERED: VANCO 1 GR1 GM/250 M IVPB (13:17)
[2019-03-25 15:42] VITALS: BP 117/61
--- NOTE | 2019-03-25 15:46 | NUR ---
pt new to acute rehab this afternoon, she up in recliner chair with bedside nurse in room monitor vs. noted pt on oxygen per nc " no home oxygen"/vandana. cm intro to cm, team meeting and dcp. pt reported " live home alone. 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 No dme, no stairs, manage own medication and drive vehicle. daughter visit often"/vandana. will cont following as needed for dc needs.
--- NOTE | 2019-03-25 16:47 | NUR ---
PT ADMITTED TO AT 1500 FOR BILATERAL PULMONARY EMBOLI. LIVE HOME BY HERSELF, INDEPEDENT PRIOR ADMISSION.PT IS CURRENTLY ON APIXABAN 10MG BID UNTIL 03/29/2019 WILL CHANGE TO APIXABAN 5MG BID PER DR. REEVES. PT ADMIT HX AND ASSESSMENT COMPLETED. VSS ON 2L OF OXYGEN. PT HAS HX OF LEFT LUNG CANCER, HAS RIGHT CHEST PORT CATH. CALLED IV TEAM AND LEFT MESSAGE TO CONTINUE TO MONITOR. PT VERY WEAK. HER GOAL TO GET STRONGER AND GO HOME.UP TO BSC WITH MAX ASSIST/GAIT/WALKER. LAST BM WAS 4 DAYS AGO. DENIES CONSTIPATION. REASSESSMENT PER CHART. HAS TRACE EDEMA ON BOTH ARMS AND LEGS, HAS VERY DRY SKIN. PT ALERT AND ORIENTED X4 ABLE TO VOICE HER NEEDS. DENIES PAIN, N/V. LAST FALL WAS 3 MONTHS AGO. BIANCHI FALL SCALE 70 AT THIS MOMENT. FALL PRECAUTION IN PLACE. PT READ AND SIGNED FALL CONTRACT. SKIN INTACT. PT IS ON VANCOMYCIN FOR BACTREMIA. WILL CALL FOR CONSULT WITH DR. STARR TO CONTINUE TO FOLLOW UP. CALLED AND NOTIFIED DR. REEVES TO VERIFY ADMISSION MEDICATIONS. FAX MEDICATION LIST TO PHARMACY. NOTIFIED DOCTOR ABOUT PT TRACE EDEMA. HE WILL ADD LASIX AND COLACE ON THE MEDICATION LIST. PT REPORTS POOR SLEEP BUT REFUSE NEED FOR SLEEPING AID NOW. WILL GIVE REPORT TO NIGHT NURSE TO CONTINUE TO MONITOR.
--- NOTE | 2019-03-25 18:35 | NUR ---
ADMISSION PHYSICIAN CONSULTS CALLED. VANCOMYCIN IV GIVEN. DILTIAZEM IS NOT AVAILABLE AT THIS MOMENT. CALLED PHARMACY. THEY WILL DELIVER LATER. ASSISTED PT TO BSC WITH MAX OF TWO FOR LIFTING PT UP RECLINER AND BSC. HAD 800CC YELLOW URINE. PT IS CONT BLADDER AT THIS MOMENT. PT IS ONLY ON BLOOD SUGAR CHECK DAILY ON PREDNISONE DAILY. WILL GIVE REPORT TO NIGHT NURSE TO CONTINUE TO MONITOR.
[2019-03-25 20:25] VITALS: BP 137/81
--- NOTE | 2019-03-26 02:15 | NUR ---
DEEDEE ACCESSED AND PATENT FOR ANTIBIOTIC INFUSION AND BLOOD DRAW. PATIENT LOOKING FORWARD TO STARTING THERAPY THIS MORNING.
[2019-03-26 05:38] LABS: HEMOGLOBIN 10.2 gm/dL (12.0-15.0)
[2019-03-26 05:43] LABS: HEMATOCRIT 32.5 % (37.0-47.0); MCH 28.5 pg (26.0-34.0); MCHC 31.4 g/dL (28.0-37.0); MCV 90.9 fL (80.0-100.0); RBC 3.58 mil/uL (4.20-5.00); RDW 23.6 % (10.5-14.5)
[2019-03-26 05:50] LABS: WBC 77.4 thou/uL (4.0-11.0)
[2019-03-26 05:59] LABS: CALCIUM 7.2 mg/dL (8.5-10.1); CREATININE 0.6 mg/dL (0.6-1.0); POTASSIUM 3.2 mmol/L (3.5-5.1)
--- NOTE | 2019-03-26 09:10 | NUR ---
ASSUME PT CARE AT 0700. PT HAD GOOD SLEEP LAST NIGHT. CALLED OUT FOR BSC. HAD 700CC URINE THIS AM. OT CAME AND WORKED WITH PT. BS 62 AT 0800. GAVE 2 JUICE. RECHECK BS DOWN TO 31. PT DOESN'T HAVE ANY SYMPTOM OF HYPOGLYCEMIA. GAVE ONE APPLE JUICE AND ORANGE JUICE. BS 21. CALLED AND PAGED DR. HUYNH. CALL LAB TO DRAW BLOOD. PT ALERT AND ORIENTED X4. DENIES PAIN AND DISCOMFORT. FALL PRECAUTION IN PLACE. PT ATE 50% BREAKFAST. C/O SORE MOUTH WILL ASK DR. HUYNH FOR LIDOCAIN LIQUID FOR HER MOUTH. CALL LIGHT WITHIN REACH. PT CALLS OUT APPROPRIATELY. WILL CONTINUE TO MONITOR.
[2019-03-26 10:21] VITALS: BP 114/63
[2019-03-26 19:15] VITALS: BP 139/80
--- NOTE | 2019-03-27 03:36 | NUR ---
PORTACATH PATENT AND USED FOR VANCOMYCIN, THEN MAGNESIUM IV INFUSION. LIDOCAINE SWISH AND SPIT, PATIENT AWARE OF NEED TO AVOID SWALLOWING, APPRECIATES ITS USE AND DECREASE OF PAIN.
[2019-03-27 07:40] VITALS: BP 106/63
--- NOTE | 2019-03-27 17:51 | NUR ---
ASSUMED CARE AT 0715. PT IS A&OX3. IS ON 2L OF O2 WITH HUMDIFICATION. DENIES PAIN. IS STABLE. IS UP WITH 1-2 ASSIST, GB, TO BEDSIDE COMMODE. FALL PRECAUTIONS & HOURLY ROUNDING MAINTAINED. LABS & VITALS REVIEWED. HAS RIGHT CHEST PORT IN PLACE. NEED LAB DRAW IN AM 03/28/2019. PT IS NOT EATING MUCH. MARIONAL RESTARTED PER DAUGHTER'S INQUIRY. PT IS COMFORTABLY LYING IN BED WATCHING TV. CALL LIGHT WITHIN REACH. WILL CONTINUE TO MONITOR.
--- NOTE | 2019-03-27 19:27 | NUR ---
PT'S BLOOD SUGARS WILL REGISTER CR LOW WHEN TAKEN IN FINGERS WITH THEY ARE EXTREMELY COLD AND CYANOTIC. WHEN TAKEN AFTER HANDS ARE WARM OR FROM CHEST PORT THEY ARE FOUND WITHIN NORMAL LIMITS. NOC NURSE AWARE.
[2019-03-27 19:36] VITALS: BP 101/65
--- NOTE | 2019-03-27 23:07 | NUR ---
PT ASSESSMENT DONE AND VSS. MEDS GIVEN AND WELL TOLERATED. FALL PRECAUTIONS IN PLACE. SLEEPING WELL. HOURLY ROUNDING. CALL LIGHT IN REACH. WILL CONTINUE TO MONITOR.
[2019-03-28 05:27] LABS: HEMOGLOBIN 9.5 gm/dL (12.0-15.0); RDW 23.2 % (10.5-14.5)
[2019-03-28 05:34] LABS: HEMATOCRIT 30.4 % (37.0-47.0); MCH 28.7 pg (26.0-34.0); MCHC 31.1 g/dL (28.0-37.0); MCV 92.3 fL (80.0-100.0); PLATELET COUNT 252 thou/uL (150-400); RBC 3.29 mil/uL (4.20-5.00)
[2019-03-28 05:56] LABS: ALBUMIN 1.9 g/dL (3.4-5.0); CALCIUM 7.2 mg/dL (8.5-10.1); CREATININE 0.7 mg/dL (0.6-1.0); MAGNESIUM 1.7 mg/dL (1.8-2.4); POTASSIUM 3.1 mmol/L (3.5-5.1); TOTAL BILIRUBIN 0.5 mg/dL (<0.1-1.0); TOTAL PROTEIN 4.7 g/dL (6.4-8.2)
--- NOTE | 2019-03-28 06:00 | NUR ---
CRITICAL VALUE OF 76 FOR WBC CALLED TO ME BY HARPAL FROM LAB AT 0550. CARLIN IRVIN CALLED AT 0555 TO REPORT VALUE. NO ORDERS RECEIVED.
[2019-03-28 07:30] VITALS: BP 111/69
[2019-03-28 10:42] LABS: ABSOLUTE NEUTROPHILS 6.1 thou/uL (1.4-8.2); ATYPICAL LYMPHS 1 %; METAMYELOCYTES 1 %; PLATELET ESTIMATE NORMAL
--- NOTE | 2019-03-28 16:13 | NUR ---
ASSUME PT CARE AT 0700. PT HAD GOOD SLEEP LAST NIGHT. BS WAS 49 AT 0734, ORANGE JUICE GIVEN. PT ATE BREAKFAST 50% RECHECK BS 82. ATE 10% FOR LUNCH AND DRANK 50% SUPPLEMENT. C/O SORE MOUTH. LESIONS OF THE TIP OF HER TONGUE AND LOWER LIP. NOTIFIED MEENAKSHI. OBTAINED ORDER FOR MAGIC WASH. LABS REVIEWED AND NOTIFIED MEENAKSHI. K 3.1 PT IS ON K SUPPLEMENT BID. OBTAINED ORDERED FOR EXTRA K SUPPLEMENT. MAG 1.7, MAG OXIDE ORDER OBTAINED AND GIVEN. REASSESSMENT PER CHART. BS HYPOATIVE. LAST BM WAS 3 DAYS AGO. OFFERED LAXATIVES, PT REFUSED. FALL PRECAUTION IN PLACE. CALL LIGHT WITHIN REACH. PT USES CALL LIGHT APPROPRIATELY. PT STILL HAS POOR APPETITE. CONTINUE TO BE ON DRONABINOL 5MG BID. DIETITIAN WAS CONSULT PT IS ON SUPPLEMENT AND KNOW HOW TO ORDER HER MEALS TRAY. LEGS TRACE EDEMA, DONALD HOSE IN PLACE. ELEVATED WHILE IN BED. PT WALKED FROM THE GYM TO HER ROOM TODAY. CONTINUE TO OFFER SUPPORT AND ENCOURAGEMENT. RESTING AND SLEEPING IN BED. UP WITH MAX ASSIST WITH TRANSFERING BUT MIN WITH WALKER.
[2019-03-28 19:05] VITALS: BP 110/64
--- NOTE | 2019-03-28 19:08 | HC ---
[facility] [place] [address] CONSULTATION Name: LAZARA ROSA Room #: 511-P [facility] IN M.R.#: [id number] Admission: 03/25/19 Attend Phys: Morgan Fay MD Discharge: Date of : 46 Report #: [id number] THIS REPORT FOR: //name// CC: Morgan Stevens DATE OF SERVICE: 03/26/2019 BEHAVIORAL STATUS EXAM AGE: 68. ATTENDING PHYSICIAN: Morgan Fay MD STACKER: Joaquin Tran, PhD CLINICAL PRESENTATION: The patient is a 68-year-old -[place]og[place] female admitted to the [facility] Rehabilitation Unit for comprehensive inpatient rehabilitation program. She was initially admitted to the hospital with a diagnosis of bilateral PE and bilateral DVTs, acute hypoxic respiratory failure, AFib, bacteremia and general debility. The patient is reported to have been living independently in her own home. Her diagnoses on admission to the rehab unit also includes medical complexity and generalized debilitation; bilateral pulmonary embolism; bilateral deep venous thrombosis; acute hypoxic respiratory failure, resolved; lung cancer, adenocarcinoma; leukocytosis; and a history of chronic lymphocytic leukemia. A complete description of her medical condition and history along with medications can be found in her medical record. Neuropsychological consultation was requested to provide assistance in the assessment of cognitive and emotional status and to provide recommendations and services. Prior to this most recent admission, she was living independently in her own home. She has one daughter and one granddaughter. 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 She has 2 years of college. She does not report a prior history of treatment for depression or anxiety. TECHNIQUES UTILIZED: Clinical interview, review of medical records, staff consultation and behavioral observation, mini mental status exam 2 standard version and clock drawing. EXAMINATION FINDINGS: The patient was alert and cooperative with the assessment; however, she was lethargic and fatigued during the interview. There is no evidence of aphasia. She does not report auditory or visual hallucinations. There is no evidence of thought disorder. She does not describe suicidal ideation. She indicates her symptoms to include increased [facility] [address] [place] [address] CONSULTATION Name: LAZARA ROSA Hermelindo Room #: 511-P [facility] IN M.R.#: [id number] Admission: 03/25/19 Attend Phys: Morgan Fay MD Discharge: Date of : 46 Report #: [id number] anxiety, sleep disturbance, decreased appetite, and difficulty with memory. The patient indicates her appetite has been diminished and she is unable to taste food. Performance on the MMSE 2 brief version is in the borderline range with a raw score of 13/16, T score 36th percentile rank of 8. Performance on the MMSE 2 standard version was extremely low with a raw score 21 of 30, T score of 26 and percentile rank of 1. The patient was alert and oriented. She was 5/5 for orientation to time and place. She was 0/3 for immediate recall of 3 items after a brief time delay and distraction. She was 0/5 for serial 7's. The patient was 2/2 for naming, 1/1 for repetition, 3/3 for auditory comprehension. She could read and follow single command and write a sentence. The patient was unable to accurately copy a simple geometric design. The patient also failed clock drawing. She was unable to accurately place the hands of a clock at a designated time. The patient is presenting with impairment with memory, sustained concentration and visual spatial construction. Executive functioning suggests impairment. DIAGNOSTIC IMPRESSION: 1. Neurocognitive disorder, unspecified, without behavior disorder -- extent to be determined, likely in the moderate to severe range currently. 2. Adjustment disorder with anxious mood. RECOMMENDATIONS: The patient will likely require assistance with management of medication, finances, and nutrition. A treatment program for anxiety that includes an antidepressant may be of benefit. The use of compensatory strategies will also be helpful for variability in cognition. Thank you very much for allowing me to provide the consultation on this patient. <ELECTRONICALLY SIGNED> By: Joaquin Tran, PhD 03/28/19 [id number] Joaquin Tran, PhD /nt
--- NOTE | 2019-03-28 21:44 | NUR ---
PT ASSESSMENT DONE AND VSS. MEDS GIVEN AND WELL TOLERATED. FALL PRECAUTIONS IN PLACE. SLEEPING WELL. HOURLY ROUNDING. CALL LIGHT IN REACH. WILL CONTINUE TO MONITOR.
[2019-03-29 08:00] VITALS: BP 118/69
--- NOTE | 2019-03-29 12:53 | NUR ---
team meeting, [facility], cant wear upper dentures. cognitive change, needs allot of clues. running into florentino while working with therapy if no clue provided. re team and discus with pt and daughter rt dcp location. team anticipate recommendation 24hr supervision and assistance do to cognitive deficits.
--- NOTE | 2019-03-29 14:51 | NUR ---
ASSUMED CARE AT 0715. PT IS A&OX3. IS ON 1L OF O2 WITH HUMDIFICATION. DENIES PAIN. T 99.4 GAVE PRN TYLENOL THIS AM. RECHECK T 98.9. PT UP WITH MAX ASSIST WITH TRANSFER GB, TO BEDSIDE COMMODE. HAS RIGHT CHEST PORT IN PLACE. NO IV MEDS AT THIS MOMENT. PT IS NOT EATING MUCH PLUS D/T HAS SORE MOUTH. CONTINUE TO BE ON DRONABINOL FOR APPETITE AND MAGIC MOUTH WASH FOR SORE MOUTH. FEELS BETTER. ST CONTINUE TO WORKING ON PT'S COGNITIVE. PT IS ON [facility] SOFT TOLERATE WELL. ATE 90% FOR BREAKFAST. 50% FOR LUNCH AND DRANK HER SUPPLEMENT 100%. PT LOOKS DEPRESSED BUT REFUSE DEPRESSION. REASSESSMENT PER CHART. BS HYPOACTIVE. GAVE SENNOK THIS AM. HAD LARGE BM THIS AM. DAUGHTER WAS HERE AND SUPPORTIVE. PT IS COMFORTABLY LYING IN BED WATCHING TV NOW. CALL LIGHT WITHIN REACH. WILL CONTINUE TO MONITOR.
[2019-03-29 20:05] VITALS: BP 109/64
--- NOTE | 2019-03-30 02:56 | NUR ---
STATES SHE NOW HAS TO TAKE PILLS ONE AT A TIME AND ADMITS SHE IS ANNOYED THAT SHE HAS TO TAKE THEM SO FREQUENTLY. SWABBING LIPS WITH MAGIC MOUTHWASH. ONE PERSON ASSIST UP TO BSC FOR LARGE VOIDS. ENCOURAGING PATIENT TO EAT
[2019-03-30 09:00] VITALS: BP 121/64
--- NOTE | 2019-03-30 14:00 | NUR ---
Patient participated in community reintegration on 03/30/19 with PHYSICAL THERAPIST. Refer to documentation by PHYSICAL THERAPY.
--- NOTE | 2019-03-30 15:00 | NUR ---
Patient participated in community reintegration on 03/31/19 with PHYSICAL THERAPY. Refer to documentation by PT. LAINA
--- NOTE | 2019-03-30 15:15 | H ---
[facility] [place] [address] HISTORY AND PHYSICAL Name: LAZARA ROSA Room #: 511-P ADM IN M.R.#: [id number] Admission: 03/25/19 Attend Phys: Morgan Fay MD Discharge: Date of : 46 Report #: [id number] THIS REPORT FOR: //name// CC: Morgan Stevens DATE OF SERVICE: 03/25/2019 POST ADMISSION PHYSICIAN EVALUATION HISTORY OF PRESENT ILLNESS: The patient has been admitted for acute in-hospital inpatient rehabilitation. Please see the full history and physical. I agree with the documentation, examination, assessment and plan. The patient was diagnosed with bilateral pulmonary emboli and bilateral lower extremity DVTs, acute respiratory failure. She has a prior history of lung cancer, which is noted to be adenocarcinoma as well as CLL. The patient has been anticoagulated was initially on a heparin drip and then switched to Eliquis. She has been followed by multiple specialists. She has now been admitted for acute in-hospital inpatient rehabilitation. As far as prior medical history, social history, multiple allergies, which are listed. HABITS: Please see the history and physical. MEDICATIONS: Please see the MAR. REVIEW OF SYSTEMS: Slept better last night. No specific complaints of chest pain, shortness of breath, abdominal discomfort at rest. Still with some lower extremity edema and swelling, but it is improving. PHYSICAL EXAMINATION: GENERAL: The patient was seen earlier, was in no distress. VITAL SIGNS: Temperature 37, pulse 77, respirations 24, blood pressure 109/64. Pleasant, small statured -Gambian female. She is on nasal prong O2. HEENT: Facies are symmetric. CHEST: Some diffuse decreased breath sounds throughout. CARDIOVASCULAR: Sounded regular rate and rhythm. ABDOMEN: Bowel sounds positive, nontender. GENITOURINARY AND RECTAL: Deferred. EXTREMITIES: Functional range of motion of both upper extremities. Strength is probably grade 3+/5. DTRs are trace to 1. Lower extremities functional range of motion, strength is probably at 3+/5. DTRs are trace to 1. She has needed assistance with basic transfers, sit to stand max assist, does have a mod assist with balance issues. Lower extremities do reveal some edema probably 1-2+. ASSESSMENT: A 68-year-old -Gambian female with the following problem list: [address] [address] HISTORY AND PHYSICAL Name: SHELLEYLAZARA Room #: 511-P [facility] IN .R.#: [id number] Admission: 03/25/19 Attend Phys: Morgan Fay MD Discharge: Date of : 46 Report #: [id number] 1. Medical complexity with generalized debilitation. 2. Bilateral pulmonary embolism. 3. Bilateral deep venous thrombosis. 4. Acute hypoxic respiratory failure, resolved. 5. Lung cancer, adenocarcinoma. 6. Leukocytosis. 7. History of chronic lymphocytic leukemia. PLAN: The patient has been admitted for acute in-hospital inpatient rehabilitation. From a postadmission physician evaluation perspective, there are no relevant changes since the preadmission screening. Please see the above review of prior and current medical and functional conditions and comorbidities. Please see the patient's previous and current functional status. As far as risk of complication, she has multiple medical comorbidities as noted above. Initial plan of care involves the interdisciplinary acute inpatient rehabilitation program. Measurable functional goals would be for the patient to become modified independent with transfers, mobility, ADLs, so she can return back to her home setting. Prognosis is reasonably good with estimated length of stay probably at least 2 weeks. We will need to see how she progresses. Potential barriers would include her multiple medical comorbidities and decreased functional status. She does have a closely involved daughter and has had other family members that are closely involved as well. <ELECTRONICALLY SIGNED> By: Morgan Fay MD 03/30/19 1515 [id number] Morgan Fay MD /[facility]
--- NOTE | 2019-03-30 18:26 | NUR ---
ASSUMED CARES AT 0700. PT SLEEPY THIS AM, ORIENTED*4. C/O MILD ORAL PAIN, S&S ORAL SUSPENSION ADMINISTERED ORDERED. PORTAL CATH REMAINS INTACT AND PATENT. PT CONTINUES TO HAVE EDEMA IN BUE AND BLE, DONALD HOSE IN PLACE AND EXTREMITIES ELEVATED. PT UP WITH 1 MIN ASSIST, AMBULATED WITH THERAPIST AND TOLERATED WELL. Q1H VISUAL CHECKS. CALL LIGHT WITHIN REACH. FALL PRECAUTIONS IN PLACE
[2019-03-30 19:23] VITALS: BP 119/74
--- NOTE | 2019-03-31 02:40 | NUR ---
PIVOTS TO BSC WITH 1P ASSIST. PREFERS TO KEEP BRIEF AND PAJAMAS ON RATHER THAN HOSPITAL GOWN. LARGE BM AT HS, ABLE TO WIPE HERSELF AND TO STAND UNASSISTED ONCE ASSISTED UP. TAKING PILLS ONE AT A TIME WITH WATER, APRECIATES THE MAGIC MOUTHWASH BUT ONLY A TOUCH OF IT TO LIPS AND TONGUE.
[2019-03-31 09:00] VITALS: BP 112/50
--- NOTE | 2019-03-31 15:07 | NUR ---
ASSUMED CARES AT 0700. PT AWAKE, ALERT AND ORIENTED*4. PT WORKED WITH [facility]ER[facility] AFTER WHICH SHE WAS HYPERVENTILATING (RESP. 24-28), HR 131, TEMP 100.2. PROVIDER NOTIFIED AND ORDERS RECEIVED. VITALS MONITORED THROUGHOUT THE DAY. THERAPY HELD AT 1100 FOR THE REST OF THE DAY UNTIL PT IS STABLE. IV ANTIBIOTICS STARTED PER ORDER, PORTAL CATH PATENT AND INTACT. ORAL SORES CLEANED AND S&S SUSPENSION ADMINISTERED ORDERED. PT UP WITH 1 MIN-MOD ASSIST, GB AND WALKER. FREQ VISUAL CHECKS. CALL LIGHT WITHIN REACH. FALL PRECAUTIONS IN PLACE
[2019-03-31 19:37] VITALS: BP 117/71
--- NOTE | 2019-04-01 02:47 | NUR ---
ASSESSED AT START OF SHIFT A&O4 PT ASLEEP. AWAKEN DURING ASSESSMENT. EVENING MEDS GIVEN AND PT RUTHIE IT WELL. FLAT AFFECT NOTED AND PT SLIGHTLY IRRITABLE STATED "ANOTHER ANTIBIOTICS AGAIN" EDUCATED PT ABOUT MEDS. PORTH A CATH INTACT AND ABX GIVE. DR STARR STOPED BY TO SEE PT. LIDOCAINE SWISH AND SWALLOW ALSO GIVEN TO PT. PT SLEPT MOST OF THE NIGHT. TYELNOL GIVEN X1 FOR LOW GRADE TEMP OF 99.7. FALL PREC IN PLACE WILL CONT WITH POC TILL EOS.
[2019-04-01 06:11] LABS: URINE BILIRUBIN NEGATIVE (Negative); URINE BLOOD NEGATIVE (Negative); URINE CLARITY CLEAR; URINE COLOR YELLOW; URINE GLUCOSE-RANDOM* NEGATIVE (Negative); URINE KETONES NEGATIVE (Negative); URINE LEUKOCYTES-REFLEX NEGATIVE (Negative); URINE NITRITE-REFLEX NEGATIVE (Negative); URINE PROTEIN (DIPSTICK) NEGATIVE (Negative); URINE SPECIFIC GRAVITY 1.015 (1.005-1.035)
[2019-04-01 06:29] LABS: SSA (PROTEIN CONFIRMATORY) NEGATIVE (Negative)
--- NOTE | 2019-04-01 06:51 | HC ---
[facility] [place] [address] CONSULTATION Name: LAZARA ROSA Room #: 511-P ADM IN M.R.#: [id number] Admission: 03/25/19 Attend Phys: Morgan Fay MD Discharge: Date of : 46 Report #: [id number] THIS REPORT FOR: //name// CC: Hany Ramires MD DATE OF SERVICE: 03/29/2019 REASON FOR CONSULTATION: History of bilateral pulmonary emboli, stage 4 lung cancer, CLL. HISTORY OF PRESENT ILLNESS: The patient is a very pleasant 68-year-old female that I have seen on the acute side of the hospital who is now on rehabilitation. She has a history of CLL that needed therapy in the distant past, history of lung cancer this past fall who received immunotherapy and appeared to be responding. She was then admitted with pulmonary emboli more recently. She has weakened condition, is now up on rehabilitation. The patient was eating breakfast. At this time, she has some discomfort at her lower lip from what looks like thrush on her lip. She says her breathing is doing better. She is getting stronger, though she still sitting in a wheelchair. Her daughter is present. PAST MEDICAL HISTORY: Notable for further bilateral pulmonary emboli recently, history of stage IV adenocarcinoma of the lung, recently on an immunotherapy, but held since admission, had been responding very poorly. Also, history of CLL from 2002. Had 2 cycles of FCR in the distant past, has had very slow progression not requiring therapy. Also, history of hyperlipidemia, history of shingles with postherpetic neuralgia, history of glaucoma, also hypertension. FAMILY HISTORY: No one newly diagnosed with cancer. Does have a daughter and another family with MS. SOCIAL HISTORY: Stopped smoking 16 years ago. In the past drank maybe one beer a month. 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 [place] [address] MEDICATIONS: At this time in the hospital currently include apixaban 5 mg b.i.d.; docusate; Senokot-S 1 tab b.i.d.; Nitrostat; Benadryl swish and swallow q. 6 hours scheduled; dronabinol 5 mg b.i.d.; potassium chloride 20 mEq b.i.d.; Tylenol p.r.n.; loratadine 10 mg daily; pantoprazole 40 daily; gabapentin 300 t.i.d.; latanoprost 1 drop both eyes at bedtime; atorvastatin 10 mg at bedtime; [place] [address] CONSULTATION Name: LAZARA ROSA Room #: 511-P [facility] IN ..#: [id number] Admission: 03/25/19 Attend Phys: Morgan Fay MD Discharge: Date of : 46 Report #: [id number] ipratropium and albuterol 3 mL respiratory therapy q.i.d.; diltiazem 30 q.i.d.; Compazine 10 mg daily p.o. p.r.n.; Dulcolax p.r.n.; docusate 100 mg b.i.d. as needed; prednisone, I believe is on a taper currently on 30 mg daily. PHYSICAL EXAMINATION: GENERAL: The patient appears her stated age, is seated in a wheelchair at the breakfast table. VITAL SIGNS: Recent height is 5 feet 5 inches, 165.1 cm, weight is 157 pounds or 71.3 kilograms. MOOD: She is alert and pleasant. Oxygen in place. HEENT: Oropharynx does have some food particles, also has mucositis on her lower lip. LUNGS: Have good respiratory motion in the upper parts of the lung posteriorly. HEART: Regular rate. LYMPH NODES: The patient in the past had an enlarged right axillary lymph node, it is minimal. EXTREMITIES: Without clubbing, cyanosis. There is some edema. LABORATORY DATA: Count notable for BUN of 6, creatinine of 0.7. Albumin 1.9. White count 76,000, was 77,000 several days ago. Hemoglobin 9.5, stable. MCV 92.3, platelets 252. Differential has an ANC of 6100. ASSESSMENT AND PLAN: 1. Bilateral pulmonary emboli. I agree with continuing Eliquis, should be on it indefinitely given high risk for recurrence with metastatic cancer. 2. Respiratory failure, much improved now on nasal cannula oxygen. Continue aerosols. 3. 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 We will need to follow up with Dr. Rakesh Degroot on discharge to consider additional chemotherapy once off steroids at a dose of 10 mg or less. 4. Weakness. Continue with rehabilitation. 5. Anorexia, the patient on dronabinol. 6. Atrial fibrillation with rapid ventricular response, meds per others. 7. Chronic lymphocytic leukemia. White count slightly higher. Hemoglobin, neutrophil and platelet count stable. No indication for therapy. 8. Thrush and lower lip lesion. Continue Nystatin. Would encourage spreading on lip at the same time 4-5 times a day to see if this responds without need for systemic therapy. 9. Hypertension. Meds per others. 10. Hyperlipidemia. Meds per others. 11. Zoster pain. Gabapentin. [facility] [address] [place] [address] CONSULTATION Name: LAZARA ROSA Room #: 511-P ADM IN M.R.#: [id number] Admission: 03/25/19 Attend Phys: Morgan Fay MD Discharge: Date of : 46 Report #: [id number] We will follow with you. <ELECTRONICALLY SIGNED> By: Jc Araujo MD 04/01/19 0651 [id number] [id number] Jc Araujo MD /nt
[2019-04-01 07:40] VITALS: BP 104/50
--- NOTE | 2019-04-01 11:31 | NUR ---
PT CARE ASSUMED AT 0700. A&Ox4. PT SITTING UP IN THE RECLINER. PT CAN RESUME ALL THERAPY AGAIN PER MD ORDER. NEW WOUND WAS FOUND ON PT BOTTOM. PICTURES TAKEN AND DR. XAVIER INFORMED TO SEE IF HE WOULD LIKE A WOUND CONSULT FOR THIS. AWAITING FURTHER INSTRUCTIONS. PT. IS VERY QUITE AND DOES NOT INTERACT VERY MUCH WITH THE STAFF BUT WILL ANSWER QUESTIONS WHEN ASKED. PT SAT INTO THE HIGH 60'S LOW 70'S WHEN BEING MOVED TO THE BED. PT WAS MOVED UP TO 3 L AND IS NOW SATING IN THE HIGH 90'S. WILL CONTINUE TO MONITOR. ALL OTHER VITALS ARE STABLE.
--- NOTE | 2019-04-01 11:33 | NUR ---
SHEARING TYPE WOUND FOUND BY OT THIS AM DURING DRESSING, AND PHOTOS WERE TAKEN, MEASUREMENTS NOTED ON 3 AREAS OF OPEN SKIN. SKIN THOROUGHLY CLEANSED AND Z-GUARD APPLIED. NOTIFIED DR. XAVIER AND AWAITING ORDERS. EDUCATION PROVIDED TO PATIENT REGARDING TURNING AND PRESSURE SHIFTS WHILE IN BED OR CHAIR.
--- NOTE | 2019-04-01 14:29 | NUR ---
WOUND CONSULT; BILATERAL BUTTOCKS SKIN TEARS IDENTIFIED. ATTEMPTED TO RE APPROXIMATE THE SKIN WITH MARATHION. RECOMMENDASTIONS; MEENAKSHI BURCIAGA RN PRESENT
[2019-04-01 19:34] VITALS: BP 111/66
--- NOTE | 2019-04-01 23:59 | NUR ---
PT ALERT AND ORIENTED X 4. VERY IRRITABLE. REFUSES TO BE TURNED Q2H. STATES JUST LEAVE ME ALONE. RIGHT CHEST PORTACATH INTACT AND PATENT. TEMP 37.6 AT START OF SHIFT. PT DENIES PAIN OR DISCOMFORT. BED ALARM ON FOR SAFETY. PT APPEARS TO BE SLEEPING ON HOURLY ROUNDS.
[2019-04-02 04:54] LABS: HEMOGLOBIN 8.1 gm/dL (12.0-15.0)
[2019-04-02 04:55] LABS: CALCIUM 7.8 mg/dL (8.5-10.1); CREATININE 0.6 mg/dL (0.6-1.0); POTASSIUM 4.1 mmol/L (3.5-5.1)
[2019-04-02 04:56] LABS: HEMATOCRIT 26.2 % (37.0-47.0); MCV 93.5 fL (80.0-100.0); RBC 2.8 mil/uL (4.20-5.00); RDW 24.1 % (10.5-14.5)
[2019-04-02 05:05] LABS: WBC 53.7 thou/uL (4.0-11.0)
--- NOTE | 2019-04-02 05:09 | NUR ---
CRITICAL WBC 53.7 THIS MORNING. CALLED TO CASE ALTMAN NP WITH NO ORDERS RECEIVED.
[2019-04-02 05:41] LABS: HSV PCR SOURCE MOUTH
[2019-04-02 08:00] VITALS: BP 135/77
[2019-04-02 10:59] LABS: % SATURATION 23 % (20-39); IRON 31 ug/dL (50-170); TIBC 134 ug/dL (250-450)
--- NOTE | 2019-04-02 12:57 | NUR ---
ASSUMED CARE AT 0715. PT IS A&OX3. VSS ON 2L. DENIES PAIN. T 97.4 THIS AM. PT IRRITABLE AT TIME. REFUSED TO GET UP. SHOWED PT PICTURES ABOUT HER BUTTOCKS SKIN TEARS AND ENCOURAGED PT TO TURN Q2HRS. PT STILL HAS FLAT AFFECT. UP WITH MOD ASSIST WITH TRANSFER GB, TO BEDSIDE COMMODE. HAS RIGHT CHEST PORT IN PLACE. IV ANTIBIOTIC GIVEN. APPETITE IS BETTER STILL HAS SORE MOUTH. REFUSES MAGIC MOUTHWASH THIS AM. ENCOURAGED PT TO CONTINUE TO TAKE MED ORDERED. CONTINUE TO BE ON DRONABINOL FOR APPETITE AND MAGIC MOUTH WASH FOR SORE MOUTH. ST CONTINUE TO WORKING ON PT'S COGNITIVE. [facility]. ATE 25% FOR BREAKFAST. ATE ALMOST ALL HER LUNCH. REASSESSMENT PER CHART. HAD LARGE BM THIS AM. FALL PRECAUTION IN PLACE. PT IS UP WITH PHYSICAL THERAPIST IN THE GYM NOW. WILL CONTINUE TO MONITOR.
[2019-04-02 20:13] VITALS: BP 103/58
--- NOTE | 2019-04-03 02:39 | NUR ---
PATIENT ENCOURAGED TO TURN TO SIDE AND HAS AGREED TO GET OFF HER BACK, Z-GUARD OINTMENT TO BUTTOCKS AFTER VOID AND SMALL BM CLEANED THIS MORNING. REFUSING BENADRYL/LIDOCAINE/NYSTATIN ORALLY THIS SHIFT. ACCESSED ID [employer] PATENT FOR MULTIPLE ANTIBIOTICS. PATIENT TAKING PILLS ONE OR TWO AT A TIME WITH WATER.
[2019-04-03 08:49] VITALS: BP 117/64
--- NOTE | 2019-04-03 15:44 | NUR ---
ASSUMED CARE AT 0700, PT A&O X 4, NO ACUTE DISTRESS NOTED. VS STABLE, O2 ON RA. PT DENIES PAIN, PORTACATH TO R CHEST AND RECEIVING ABX. DAILY BG. PT HAS POOR APPETITE, DIDNT EAT BREAKFAST AND VERY SMALL PORTION OF LUNCH, ENCOURAGED PT TO DRINK SUPPLEMENTS, HOWEVER PT STATED THAT SHE HAD NO APPETITE. NEW ORDER FOR PT TO BE DAILY WEIGHT AND MONITOR I&O, STANDING WEIGHT WAS 150.3. PT SAT UP IN CHAIR FOR PART OF THE SHIFT. BED IN LOWEST POSITION, CALL LIGHT WITHIN REACH, WILL CONTINUE TO MONITOR PER POC.
[2019-04-03 20:00] VITALS: BP 111/73
--- NOTE | 2019-04-04 02:15 | NUR ---
PT ASSESSMENT DONE AND VSS. MEDS GIVEN AND WELL TOLERATED. FALL PRECAUTIONS IN PLACE. SLEEPING WELL. HOURLY ROUNDING. CALL LIGHT IN REACH. WILL CONTINUE TO MONITOR.
[2019-04-04 06:31] LABS: HEMATOCRIT 24.8 % (37.0-47.0); HEMOGLOBIN 7.8 gm/dL (12.0-15.0); MCH 29.7 pg (26.0-34.0); MCHC 31.4 g/dL (28.0-37.0); MCV 94.5 fL (80.0-100.0); PLATELET COUNT 147 thou/uL (150-400); RBC 2.62 mil/uL (4.20-5.00); RDW 24.2 % (10.5-14.5)
[2019-04-04 06:42] LABS: WBC 42.7 thou/uL (4.0-11.0)
--- NOTE | 2019-04-04 06:48 | NUR ---
CRITICAL VALUE AT 0640 WBC OF 42.7. CARLIN ALTMAN CALLED AT 0645. NO ORDERS.
[2019-04-04 06:52] LABS: ALBUMIN 1.8 g/dL (3.4-5.0); CALCIUM 7.7 mg/dL (8.5-10.1); CREATININE 0.7 mg/dL (0.6-1.0); POTASSIUM 3.8 mmol/L (3.5-5.1); TOTAL BILIRUBIN 0.3 mg/dL (<0.1-1.0); TOTAL PROTEIN 4.9 g/dL (6.4-8.2)
[2019-04-04 07:31] LABS: ABSOLUTE NEUTROPHILS 5.1 thou/uL (1.4-8.2); ANISOCYTOSIS 3+; ATYPICAL LYMPHS 5 %
[2019-04-04 07:37] LABS: OVALOCYTES 1+
[2019-04-04 07:39] LABS: SCHISTOCYTES RARE; TEARDROPS OCCASIONAL
[2019-04-04 08:00] VITALS: BP 130/76
--- NOTE | 2019-04-04 14:27 | NUR ---
cm received phone call from tato stated approved through , if need assist with dcp can call [phone]. cm requested snf, hh and dme provider list be faxed to cm office. will cont following as needed for dc needs.
--- NOTE | 2019-04-04 15:59 | NUR ---
ASSUMED CARE AT 0715. PT IS A&OX3. VSS ON 2L. REPORTS SLEPT WELL LAST NIGHT. IRRITABLE AT TIME. BUTTOCKS SORES APPLIED ZGUARD. ENCOURAGED PT TO TURN Q2HRS. PT STILL HAS FLAT AFFECT. UP WITH MOD ASSIST WITH TRANSFER GB, TO BEDSIDE COMMODE. HAS RIGHT CHEST PORT IN PLACE. IV ANTIBIOTIC GIVEN. APPETITE IS BETTER STILL HAS SORE MOUTH. REFUSES MAGIC MOUTHWASH THIS AM. ENCOURAGED PT TO CONTINUE TO TAKE MED ORDERED. CONTINUE TO BE ON DRONABINOL FOR APPETITE AND MAGIC MOUTH WASH FOR SORE MOUTH. PT IS ON MECH SOFT AND ENSURE ATE 75%LUNCH. REASSESSMENT PER CHART. CONTINUE TO BE ON ABBIE BID. LAST BM WAS YESTERDAY. FALL PRECAUTION IN PLACE. CALL LIGHT WITHIN REACH. WILL CONTINUE TO MONITOR.
[2019-04-04 19:27] VITALS: BP 115/71
--- NOTE | 2019-04-05 00:26 | NUR ---
PT ASSESSMENT DONE AND VSS. MEDS GIVEN AND WELL TOLERATED. FALL PRECAUTIONS IN PLACE. DROWSY AND IRRITABLE THIS EVENING. BLOOD DRAWN FOR BLOOD CULTURES ORDERED. HOURLY ROUNDING. CALL LIGHT IN REACH. WILL CONTINUE TO MONITOR.
[2019-04-05 07:15] VITALS: BP 145/77
--- NOTE | 2019-04-05 10:53 | NUR ---
WOUND CARE F/U RIGHT THIGH WOUND HEALED, NO DRSG NEEDED, SACRAL/BUTTOCKS AREA IMPROVING, LESS NINI, ASSESSED WOUND W/ OT STARTING BATH, PT COOPERATIVE, ALERT, DENIES PAIN RECOMMENDATIONS CONT ZGUARD BID TO SACRAL/BUTTOCKS AREA BID AND PRN, CONT LOW AIR LOSS PUMP TO BED, OFF LOADING, PRESSURE RELIEF NITRO MAN AWARE
--- NOTE | 2019-04-05 11:04 | NUR ---
ASSUMED CARE AT 0715. PT IS A&OX3. HAS FLAT AFFECT. IRRITABLE AT TIME. BUTTOCKS SORES APPLIED ZGUARD. ENCOURAGED PT TO TURN Q2HRS. UP WITH MOD ASSIST WITH TRANSFER GB, TO BEDSIDE COMMODE AND TOILET. HAS RIGHT CHEST PORT IN PLACE CONTINUE TO BE ON IV ANTIBIOTIC GIVEN SCHEDULE. APPETITE IS BETTER STILL HAS SORE MOUTH. REFUSES MAGIC MOUTHWASH AT TIME. CONTINUE TO BE ON ANTIVIRAL MED DAILY. SORE ON MOUTH LOOKS BETTER. ENCOURAGED PT TO CONTINUE TO TAKE MED ORDERED. CONTINUE TO BE ON DRONABINOL FOR APPETITE PT IS ON MECH SOFT AND ENSURE. REASSESSMENT PER CHART. CONTINUE TO BE ON ABBIE BID. LAST BM WAS YESTERDAY. DAUGHTER WAS HERE THIS AM. PT HAS BEEN UP IN RECLINER, LOOKS CALM AND COMFORTABLE. OFFERED SUPPORTIVE CARE. ENCOURAGED PT TO GO TO DINNING ROOM FOR MEALS. FALL PRECAUTION IN PLACE. CALL LIGHT WITHIN REACH. WILL CONTINUE TO MONITOR.
--- NOTE | 2019-04-05 13:29 | NUR ---
team meeting, recommendation: home with family 24 hr gym supervisor, assistance with pills and bills or going to skilled. possible family training on how much assistance pt is needing. pending blood c & s, id to see how long going to need iv abx. anticipation dc 28 if home hh ( pt, ot, nursing, sw and st). will need fww if goes hoe, bedside commode, shower chair, garb bars.
[2019-04-05 20:10] VITALS: BP 102/66
--- NOTE | 2019-04-06 01:18 | NUR ---
PT ALERT AND ORIENTED X 4. VERY IRRITABLE, WON'T EVEN ANSWER QUESTIONS ASKED OF HER. RIGHT PORTACATH INTACT AND PATENT. PT REFUSES Q2H TURNS. BED ALARM ON FOR SAFETY. PT APPEARS TO BE SLEEPING ON HOURLY ROUNDS
[2019-04-06 06:05] VITALS: BP 134/82
[2019-04-06 06:06] LABS: HSV 1 DNA Positive (Negative); HSV 2 DNA Negative (Negative)
[2019-04-06 06:18] LABS: HEMOGLOBIN 7.8 gm/dL (12.0-15.0); MCH 29.3 pg (26.0-34.0); MCV 94.7 fL (80.0-100.0); PLATELET COUNT 153 thou/uL (150-400); RBC 2.64 mil/uL (4.20-5.00); RDW 24.2 % (10.5-14.5)
[2019-04-06 06:41] LABS: ALBUMIN 1.8 g/dL (3.4-5.0); ANION GAP 9 mmol/L (7-16); BUN 7 mg/dL (7-18); CALCIUM 7.5 mg/dL (8.5-10.1); CHLORIDE 106 mmol/L (98-107); CO2 24 mmol/L (21-32); CREATININE 0.6 mg/dL (0.6-1.0); GLUCOSE 84 mg/dL (74-106); MAGNESIUM 1.4 mg/dL (1.8-2.4); POTASSIUM 3.9 mmol/L (3.5-5.1); SGOT 15 U/L (15-37); SGPT 15 U/L (30-65); SODIUM 139 mmol/L (136-145); TOTAL BILIRUBIN 0.4 mg/dL (<0.1-1.0); TOTAL PROTEIN 5.1 g/dL (6.4-8.2); TROPONIN-I <0.06 ng/mL (<0.06)
[2019-04-06 06:44] LABS: WBC 45.3 thou/uL (4.0-11.0)
--- NOTE | 2019-04-06 07:27 | NUR ---
CALLED TO ROOM BY DIVISION TOLL WIRE CHIEF. PT SOB WITH RESP RATE 28-30. 02 SAT 95% ON 2L. HR 120, BP 142/88. CARE CONSULTANT DESHAWN CALLED AND SHE CAME TO SEE PT. EKG DONE SHOWING SINUS TACH PER DESHAWN. CARLIN ARRIETA CALLED WITH ORDERS RECEIVED. MORNING DOSE OF CARDIZEM GIVEN EARLY. LABS DRAWN. VS AT 0555 TEMP 100.9, HR 118, RESP 24, 02 SAT 100%. PT STATES SHE FEELS MUCH BETTER. PT HAS NOT VOIDED ALL SHIFT. REFUSES TO GET UP TO TRY TO VOID. MEENAKSHI NOTIFIED WITH NO ORDERS RECEIVED. CRITICAL WBC 45.3 THIS MORNING. CALLED TO MEENAKSHI WITH NO ORDERS RECEIVED. TYLENOL GIVEN FOR TEMP. PT REFUSED TO BE TURNED Q2H DURING THE NIGHT. PT DENIES PAIN OR DISCOMFORT. BED ALARM ON FOR SAFETY. REPORT GIVEN TO DAY NURSE.
--- NOTE | 2019-04-06 08:32 | NUR ---
PT UP WITH THERAPY GETTING READY TO GO TO EAT AT TABLE. PT HAS SOME SOB. PT HAS CRACKLES TO LLL AND RLL. PT ON 3L NC. PT NEEDED ASSISTANCE WITH STANDING. PT HAS EDEMA TO LE FROM PEDAL TO KNEES. NO COUGH NOTED. PT DAUGHTER HERE.
[2019-04-06 08:48] LABS: ABSOLUTE NEUTROPHILS 6.8 thou/uL (1.4-8.2); ANISOCYTOSIS 2+; ATYPICAL LYMPHS 3 %; PLATELET ESTIMATE NORMAL
--- NOTE | 2019-04-06 14:18 | NUR ---
PT RESTING IN BED. PT ASKING WHAT NOW, THIS FINISHED METAL REPAIRER GIVING TIMED MED. PT SEEMS UPSET AND SHAKEY.
--- NOTE | 2019-04-06 18:45 | NUR ---
STARTED MAG 1MG OF MAG AT 25ML/HR. PT NOT TALKING VERY MUCH WITH NURSE.
[2019-04-06 18:54] VITALS: BP 113/61
--- NOTE | 2019-04-07 06:09 | NUR ---
assumed care at approx 1900 evening 04/06. pt lying in bed with head of bed elevated at change of shift. pt sleeping at shift change. pt awoke for hs meds tolerating well. IV antibiotics infused per port-a-cath with no problems. bed alarm on and call light in reach. 02 at 3l per n/c. will continue to monitor.
--- NOTE | 2019-04-07 08:21 | EKG ---
[address] [address] ELECTROCARDIOGRAM REPORT Name: SHELLEYLAZARA Casarez Room #: 511-P ADM IN M.R.#: [id number] Admission: 03/25/19 Attend Phys: Morgan Fay MD Discharge: Date of : 46 Report #: [id number] THIS REPORT FOR: //name// [facility] Test Date: 2019-04-06 Test Time: 05:28:40 Pat Name: LAZARA ROSA Department: Room: 511 Gender: F Cloth Stretcher: estefany : [id number] Requested By: Jigna Rosales Order Number: [id number] MD: Chino Dowling Measurements Intervals Salol Rate: 121 P: 86 DE: 169 QRS: 57 QRSD: 105 T: -32 QT: 315 QTc: 447 Interpretive Statements Sinus tachycardia Atrial premature complexes Nonspecific intraventricular conduction delay Compared to ECG 03/18/2019 20:45:07 QRS duration has widened Electronically Signed On 04-07-2019 8:20:15 RN CHRONIC by Chino Dowling [email or web address] <ELECTRONICALLY SIGNED> By: Chino Dowling MD, [facility] 04/07/19819 7 7 Chino Dowling MD, [facility] /EPI
[2019-04-07 09:00] VITALS: BP 121/70
--- NOTE | 2019-04-07 10:31 | NUR ---
WOUND CARE F/U ASSESSED SACRAL/BUTTOCK WOUND, LESS NINI, HEALING, NO S/S INFECTION, SOME DISCOMFORT W/ WOUND CARE, ALERT, COOPERATIVE, LOW AIR LOSS PUMP TO BED RECOMMENDATIONS, CONT CURRENT TX ZGUARD TO SACRAL/BUTTOCKS AREA AT LEAST DAILY AND PRN, PRESSURE RELIEF, OFF LOADING, CONT LOW AIR LOSS PUMP TO BED SALES HOST AWARE
[2019-04-07 14:01] VITALS: BP 121/70
--- NOTE | 2019-04-07 16:18 | NUR ---
ASSUMED CARES AT 0700. PT ALERT AND ORIENTED*4, LETHARGIC. FEVER OF 100.2, HR ELEVATED 110-120'S WITH ACTIVITY, 90-110 AT REST, HOSPITALIST NOTIFIED, THERAPY COMPLETED TOLERATED. PT UNABLE TO COMPLETE BOTH PT AND OT R/T FATIGUE AND SOB. PORTAL CATH ON CHEST RIGHT REMAINS INTACT AND PATENT. PT REPOSITIONED EVERY 2HRS. SACRAL WOUND CLEANED AND BARRIER CREAM APPLIED. Q1H VISUAL CHECKS. CALL LIGHT WITHIN REACH. FALL PRECAUTIONS IN PLACE
--- NOTE | 2019-04-08 00:45 | NUR ---
PT ASSESSMENT DONE AND VSS. MEDS GIVEN AND WELL TOLERATED. FALL PRECAUTIONS IN PLACE. SLEEPING WELL. HOURLY ROUNDING. CALL LIGHT IN PLACE. WILL CONTINUE TO MONITOR.
[2019-04-08 08:03] VITALS: BP 130/66
[2019-04-08 09:07] VITALS: BP 130/66
[2019-04-08 14:38] LABS: BE(vivo) 0.2 mmol/L (-2 to +3); HCO3 24.1 mmol/L (22.0-26.0); PCO2 35.4 mmHg (35.0-45.0); PO2 65.2 mmHg (80.0-100.0); sO2 93.8 % (92.0-98.0)
[2019-04-08] MEDS ORDERED: CARDIZEM CD 30300 M1 PO (14:42)
[2019-04-08] MEDS ORDERED: VALTREX 500 MG500 MG PO (14:42)
[2019-04-08] MEDS ORDERED: FLUCONAZOLE 10100 MG PO (14:42)
[2019-04-08] MEDS ORDERED: SENNA-TIME S T1 EACH PO (14:42)
--- NOTE | 2019-04-08 14:54 | NUR ---
Change in LOC-HOG CONFINEMENT SYSTEM MANAGER activated-see flowsheet
--- NOTE | 2019-04-08 16:14 | NUR ---
ASSUMED CARE AT 0700. PATIENT IS ALERT AND ORIENTED X2. PATIENT AFFECT IS FLAT. PATIENT IS UP WITH ASSIST OF 1 STAFF WITH GAIT BELT AND WALKER TO THE RECLINER. PATIENT APPETITE IS POOR. 02 IS ON AT 3L PER N/C. LUNGS ARE CLEAR AND DEMINISHED. PATIENT CONTINUES ON RESPIRATORY TX. ABD IS SOFT WITH BSX4. PATIENT HAS S.L. ACCESS OF PORT A CATH. ENCOURAGED PO FLUIDS. FALL AND SAFETY PROTOCOLS IN PLACE. MEDS TAKEN PO WITH WATER. PATIENT REMAINS ON REGULAR DIET WITH SUPPLEMENTS. PATIENT IS DNR/NO CODE. PATIENT DENIES ANY PAIN AT THIS TIME. CONTINUES TO REFUSE TO DO THERAPY AT TIMES. WILL CONTINUE TO MONITER.
--- NOTE | 2019-04-08 16:20 | NUR ---
1415 PATIENT UP IN RECLINER AND UNRESPONSIVE. PATIENT PUT IN BED PER AARON LIFT. IMPREGNATOR HERE TO SEE PATIENT. BP 86/40 [address] SR HERE. ARTERIAL BLOOD GASES DONE. NS BOLUS 150CC GIVEN. EKG DONE. NARCAN 1.2 MG GIVEN IVP ORDERED. 02 INCREASED TO 10 L PER N/C UNTIL MASK AVAILABLE. FLUMAZENIL 0.1 MG GIVEN IVP ORDERED. PATIENT'S DAUGHTER HERE. DR. SR IS TALKING WITH HER. PATIENT TRANSFERED TO CT PER BED AND WITH 02 ON PER MASK AND IVF OF NS. CAT SCAN COMPLETED. PATIENT TRANSFERED TO ROOM 214 IN CCU. REPORT GIVEN TO RN ON CCU.
--- NOTE | 2019-04-08 16:22 | PLAN ---
[facility] [place] [address] REHAB UNIT PLAN OF CARE Name: SHELLEYLAZARA Casarez Room #: 511-P [facility] IN M.R.#: [id number] Admission: 03/25/19 Attend Phys: Morgan Fay MD Discharge: 04/08/19 Date of : 46 Report #: [id number] THIS REPORT FOR: //name// CC: Morgan Stevens DATE OF SERVICE: 03/28/2019 PROGRESS NOTE AND OVERALL PLAN OF CARE SUBJECTIVE: The patient is seen back today in followup. She is in no distress. Temperature 37.4, pulse 82, respirations 20, and blood pressure 101/65. The patient is involved in therapies with transfers, mod assist. Gait mod assist 30 feet front-wheeled walker. Lower body dressing is max assist. She is continuing on oxygen 2 liters. ASSESSMENT: 1. Medical complexity with generalized debilitation. 2. Bilateral pulmonary embolism. 3. Bilateral deep venous thrombosis. 4. Acute hypoxic respiratory failure, resolved. 5. Lung cancer, adenocarcinoma. 6. Leukocytosis. 7. History of chronic lymphocytic leukemia. PLAN: The overall plan of care is based on the preadmission screen, post-admission physician evaluation and information garnered from therapy assessments. 1. Estimated length of stay is probably at least 2 weeks. 2. Medical prognosis is reasonably good. 3. Anticipated interventions includes the interdisciplinary acute inpatient rehabilitation program. 4. Anticipated functional outcomes would be for the patient to become modified independent with transfers, mobility, ADLs, so that she can return back to the home setting. 5. Discharge destination would be back to the home setting. 6. Expected therapy by discipline includes PT and OT 1-1/2 hours per day each five days a week throughout the duration of the acute inpatient rehabilitation stay. <ELECTRONICALLY SIGNED> By: Morgan Fay MD 04/08/19 1622 [id number] [id number] Morgan Fay MD /nt
--- NOTE | 2019-04-08 16:26 | EKG ---
[address] [address] [facility] [place] [address] ELECTROCARDIOGRAM REPORT Name: SHELLEYLAZARA Room #: 511-P [facility] IN M.R.#: [id number] Admission: 03/25/19 Attend Phys: Morgan Fay MD Discharge: 04/08/19 Date of : 46 Report #: [id number] THIS REPORT FOR: //name// [facility] Test Date: 2019-04-08 Test Time: 14:21:53 Pat Name: LAZARA ROSA Department: Room: [facility] Gender: F Senior Product Designer: Javi EAGLE : 1950 Requested By: Jigna Rosales Order Number: [id number] MD: Chino Dowling Measurements Intervals [place] Rate: 84 P: 63 ND: 188 QRS: 57 QRSD: 93 T: 34 QT: 372 QTc: 440 Interpretive Statements Sinus rhythm with occasional premature ventricular and supraventricular complexes Borderline T abnormalities, anterior leads Baseline wander in lead(s) III,aVF,V1,V2 no previous ECGs available for comparison Electronically Signed On 04-08-2019 16:25:41 SLOT MACHINE KEY PERSON by Chino Dowling [email or web address] <ELECTRONICALLY SIGNED> By: Chino Dowling MD, [facility] 04/08/19 1625 1421 1421 Chino Dowling MD, [facility] /EPI
== END 2019-04-08 15:00 | disposition short-term general hospital (02) | DRG 947 ==
PROVIDERS: Hospitalist; Internal Medicine; Nurse Practitioner; Nurse Practitioner Family; Specialist; ADMIT Physical Medicine & Rehabilitation
DX: R53.81 Other malaise (principal); I26.99 Other pulmonary embolism without acute cor pulmonale; J96.01 Acute respiratory failure with hypoxia; E43 Unspecified severe protein-calorie malnutrition; I82.433 Acute embolism and thrombosis of popliteal vein, bilateral; I82.413 Acute embolism and thrombosis of femoral vein, bilateral; R78.81 Bacteremia; C91.10 Chronic lymphocytic leukemia of B-cell type not having achieved remission; B37.0 Candidal stomatitis; C34.90 Malignant neoplasm of unspecified part of unspecified bronchus or lung; Z60.2 Problems related to living alone; E78.5 Hyperlipidemia, unspecified; I10 Essential (primary) hypertension; J43.9 Emphysema, unspecified; F43.22 Adjustment disorder with anxiety; R41.9 Unspecified symptoms and signs involving cognitive functions and awareness; E83.42 Hypomagnesemia; E87.6 Hypokalemia; F43.21 Adjustment disorder with depressed mood; K13.79 Other lesions of oral mucosa; G62.9 Polyneuropathy, unspecified; K12.1 Other forms of stomatitis; D64.9 Anemia, unspecified; K12.30 Oral mucositis (ulcerative), unspecified; I48.91 Unspecified atrial fibrillation; Z79.01 Long term (current) use of anticoagulants; Z88.0 Allergy status to penicillin; Z88.2 Allergy status to sulfonamides; Z88.1 Allergy status to other antibiotic agents; Z88.8 Allergy status to other drugs, medicaments and biological substances; Z90.710 Acquired absence of both cervix and uterus; Z87.891 Personal history of nicotine dependence
CPT/HCPCS: 10112

== ENCOUNTER 2019-04-08 19:00 | Inpatient (IN) | payer OTHER ==
[~2019-04-08] VITALS: Ht 165.1 cm; Wt 65.1 kg
[~2019-04-08 19:00] MED LIST changes: +CARDIZEM CD 30300 M1 PO; +CARDIZEM30 MG PO; +ELIQUIS5 MG PO; +FLUCONAZOLE 10100 MG PO; +IPRAT-ALBUT 0.5-3 ML INH; +SENNA-TIME S T1 EACH PO; +VALTREX 500 MG500 MG PO; +VANCO 1 GR1 GM/250 M IVPB
--- NOTE | 2019-04-08 20:00 | NUR ---
pt arrived to [facility] from 5[facility], assessed, drowsy, VSS, pt alert and oriented x4, daughter at side, aware pt arrived and tried to enter orders, admitting asked for copy of insurance info stating the pt's insurance may have in Feb. info faxed to admitting, pt placed into computer, when verifying pt's new bracelet with pt, birthdate was wrong. upon checking name, wrong middle initial was present as well, admitting notified, "wrong Aminta" was d/c'd and correct one was entered, pt was SOB and O2 sats were high 80s, HR was 125, respiratory called to give a treatment, switched pt to a NRB, pt resting in bed, daughter at side, have given report to LUIS Sterling
[2019-04-08 20:17] LABS: HEMATOCRIT 24.5 % (37.0-47.0); HEMOGLOBIN 7.6 gm/dL (12.0-15.0); MCH 29.5 pg (26.0-34.0); MCHC 31.1 g/dL (28.0-37.0); MCV 94.9 fL (80.0-100.0); RBC 2.58 mil/uL (4.20-5.00); RDW 22.6 % (10.5-14.5); WBC 32.7 thou/uL (4.0-11.0)
[2019-04-08 20:27] VITALS: BP 124/49
[2019-04-08 20:32] LABS: CREATININE 0.6 mg/dL (0.6-1.0); POTASSIUM 3.7 mmol/L (3.5-5.1); TOTAL BILIRUBIN 0.6 mg/dL (<0.1-1.0); TOTAL PROTEIN 5.6 g/dL (6.4-8.2)
[2019-04-09 04:23] VITALS: BP 115/72
[2019-04-09 06:48] LABS: HEMATOCRIT 23.5 % (37.0-47.0); HEMOGLOBIN 7.3 gm/dL (12.0-15.0); MCH 29.8 pg (26.0-34.0); MCHC 31.3 g/dL (28.0-37.0); MCV 95.3 fL (80.0-100.0); PLATELET COUNT 165 thou/uL (150-400); RBC 2.46 mil/uL (4.20-5.00); RDW 22.2 % (10.5-14.5)
[2019-04-09 07:06] LABS: CALCIUM 7.9 mg/dL (8.5-10.1); CREATININE 0.7 mg/dL (0.6-1.0); MAGNESIUM 1.5 mg/dL (1.8-2.4); POTASSIUM 3.5 mmol/L (3.5-5.1)
[2019-04-09 07:50] VITALS: BP 116/65
--- NOTE | 2019-04-09 07:54 | NUR ---
BREATHING TREATMENT WAS GIVEN BY RT.PATIENT WAS PLACED ON NON REBREATHER.DAUGHTER WAS HERE.PO MEDS NOT GIVEN DUE TO HEAVY BREATHING AND WAS LETHARGIC.PATIENT IS BETTER THIS MORNING.MORE ALERT AND ANSWERS QUESTIONS.RT WILL TITRATE HER O2.BLOOD GLUCOSE 58.DR SR WAS PAGED BY THE INSTRUMENT TECHNOLOGIST FOR THE GLUCOSE RESULT.POC CONTINUED.
[2019-04-09 11:00] VITALS: BP 105/53
[2019-04-09 12:14] LABS: ATYPICAL LYMPHS 5 %
[2019-04-09 12:15] LABS: ANISOCYTOSIS 3+; OVALOCYTES FEW; POLYCHROMASIA OCCASIONAL
[2019-04-09 17:00] VITALS: BP 115/58
--- NOTE | 2019-04-09 17:39 | NUR ---
ASSUMMED PT CARE AT APPROXIMATELY 0700. PT A&O X4. ASSESSMENT CHARTED. FALL PRECAUTIONS IN PLACE. PT DENIES HAVING CHEST PAIN. PT STATED SHE HAS SOB ON EXERSION. O2 SAT STABLE. PT CHANGED TO OPTIFLOW. O2 SATS STABLE. PT'S MORNING BLOOD SUGAR LOW. HYPOGLYGEMIC PROTOCOL FOLLOWED. DR. SR NOTIFIED. ORDERED NEW MEDS. NEW MEDS IMPLEMENTED. BLOOD SUGARS STABLE. VITAL SIGNS STABLE. NOTICED PT WAS NOT URINATING. OBTAINED BLADDER SCAN. BLADDER SCAN SHOWED PT WAS RETAINING >999 ML OF URINE. NOTIFIED DR. SR. DR. SR STATED TO START HOLLAND CATH. HOLLAND CATH IMPLEMENTED AND PT IS VOIDING. PT FEBRILE DURING NOON VITALS. TYLENOL GIVEN. PT AFEBRILE. PT COMFORTABLE RESTING IN BED. PT AND PT'S FAMILY EDUCATED ABOUT POC. PT AND PT'S FAMILY STATED UNDERSTANDING AND DENIED HAVING FURTHER QUESTIONS. PT DENIES HAVING FURTHER CONCERNS. NOTIFIED DR. SR OF PT HAVING HIGH BLOOD SUGAR. AWAITING FOR 'S RESPONSE.
[2019-04-09 19:41] VITALS: BP 99/55
[2019-04-10 04:21] VITALS: BP 116/66
[2019-04-10 05:17] LABS: HEMATOCRIT 23.5 % (37.0-47.0); HEMOGLOBIN 7.5 gm/dL (12.0-15.0); MCH 30.4 pg (26.0-34.0); MCHC 31.9 g/dL (28.0-37.0); MCV 95.2 fL (80.0-100.0); RBC 2.47 mil/uL (4.20-5.00); RDW 22.4 % (10.5-14.5); WBC 16.9 thou/uL (4.0-11.0)
--- NOTE | 2019-04-10 05:27 | NUR ---
ASSESSMENT DOCUMENTED.PT BEEN RESTING IN NO ACUTE DISTRESS.VSS.CONTINUES ON OXYGEN THERAPY PER OPTIFLOW AT 43% /25LITERS OF OXYGEN.CONT PULSE OX IN PLACE.SPO2 ADEQUATE.PT BEEN SLEEPING MOST OF THE NOC,EASY TO AROUSE.ON IV ABT,TOLERATING.NO C/O PAIN.PT DENIES ANY NEEDS AT THIS TIME.
[2019-04-10 05:36] LABS: ALBUMIN 1.7 g/dL (3.4-5.0); CALCIUM 7.7 mg/dL (8.5-10.1); CREATININE 0.7 mg/dL (0.6-1.0); PHOSPHORUS 2.2 mg/dL (2.5-4.9); POTASSIUM 3.2 mmol/L (3.5-5.1)
[2019-04-10 07:30] VITALS: BP 103/66
[2019-04-10 11:30] VITALS: BP 117/70
[2019-04-10 16:30] VITALS: BP 120/68
--- NOTE | 2019-04-10 16:42 | NUR ---
ASSUMED CARE AT 0700, SHIFT ASSESSMENT DONE, MEDS GIVEN, VSS. DENIES PAIN, NAUSEA, VOMITING. NSR ON TELE, ON 10 L, 35-40% FiO2, TOLEARTING WELL. HLOLAND IN PLACE. LEGS ARE STILL EDEMATOUS, 3+. HOPSICE CONSULT, HAS NOT SEEN THE PT YET. WILL CONTINUE TO ASSESS AND ASSIST WITH ADLs NEEDED.
[2019-04-10 19:55] VITALS: BP 119/64
[2019-04-11 04:57] VITALS: BP 129/82
--- NOTE | 2019-04-11 04:59 | NUR ---
PT ALERT AND ORIENTED. FLAT AFFECT. NO CONCERN, NO C/O REPORTED. DENIES SOB, CHEST PAIN, NAUSEA OR VOMITING. PT REFUSED REPOSITIONING. URINARY CATHETER INTACT. (SEE I &O). VSS. WILL CONTINUE TO MONITOR.
[2019-04-11 05:23] LABS: HEMATOCRIT 23.9 % (37.0-47.0); HEMOGLOBIN 7.4 gm/dL (12.0-15.0); MCH 29.7 pg (26.0-34.0); MCHC 31.1 g/dL (28.0-37.0); MCV 95.5 fL (80.0-100.0); RBC 2.51 mil/uL (4.20-5.00); RDW 21.6 % (10.5-14.5); WBC 20.1 thou/uL (4.0-11.0)
[2019-04-11 05:35] LABS: CALCIUM 7.9 mg/dL (8.5-10.1); CREATININE 0.6 mg/dL (0.6-1.0); POTASSIUM 3.7 mmol/L (3.5-5.1)
[2019-04-11 08:00] VITALS: BP 119/65
--- NOTE | 2019-04-11 10:51 | NUR ---
WOUND CARE F/U PT KNOWN TO THIS [facility] NURSE DUE TO STAY UP ON [address], BILAT SKIN TEARS BUTTOCKS AREA, PINK GRANULATING TISSUE, MUCH IMPROVED HEALING, PT ALERT, COOPERATIVE, STATES SOME DISCOMFORT W/ WOUNDS, AND FEELS BETTER W/ BORDER FOAM DRSG ON, ASSESSED WOUNDS W/ [employer] G[employer] SPOT[employer] HARIS, FAMILY AT , LOW AIR LOSS PUMP ORDERED FOR BED RECOMMENDATIONS; CLEANSE W/ NS OR WOUND CLEANSER, APPLY ZGUARD BID AND PRN, COVER W/ BORDER FOAM DRSG, PRESSURE RELIEF, OFF LOADING, TURN [id number], LOW AIR PUMP TO BED [employer] G[employer] SPOTTER AWARE
--- NOTE | 2019-04-11 11:46 | NUR ---
FAXED REFERRAL TO HOSPICE SPOKE WITH [employer] IN INTAKE SHE RECEIVED REFERRAL AND WILL ARRANGE MTG WITH FAMILY. DP TO FOLLOW.
[2019-04-11 11:55] VITALS: BP 132/73
--- NOTE | 2019-04-11 16:09 | NUR ---
Met with patient and dtr regarding hospice care. reviewed hospice philosophy and intermittant care in the home. Dtr reports she is familiar with hospice care. Her spouse 2 years ago with hospice. She is interested in Hospice eval. Sp with Korin in intake. Clinical information faxed. reviewed plan for hospice at home as patient strongly wants to return home. Hospice to meet with dtr in am at hospital. Dtr preparing room at home. DME equiptment to be delivered to home later today with planned dc tomorrow.
--- NOTE | 2019-04-11 17:06 | NUR ---
ASSUMMED PT CARE AT APPROXIMATELY 0700. PT A&O X4. ASSESSMENT CHARTED. FALL PRECAUTIONS IN PLACE. PT DENIES HAVING CHEST PAIN. PT STATES SHE HAS SOB ON EXERSION. O2 SATS STABLE. PT DENIES HAVING ACUTE PAIN. PT WEANED OF HIGH FLOW NASAL CANNULA TO NASAL CANNULA. O2 SATS STABLE. NOTIFIED DR. SR OF X-RAY RESULTS. DR. SR ORDERED NEW MEDS. NEW MEDS IMPLEMENTED. PT AND PT'T FAMILY EDUCATED ABOUT POC. PT AND PT'S FAMILY STATED UNDERSTANDING AND DENIED HAVING FURTHER QUESTIONS. PT COMFORTABLE IN BED. PT DENIED HAVING FURTHER CONCERNS. VITAL SIGNS STABLE. BLOOD SUGARS STABLE.
[2019-04-11 20:05] VITALS: BP 122/57
[2019-04-12 04:18] VITALS: BP 125/82
--- NOTE | 2019-04-12 04:50 | NUR ---
PT ALERT AND ORIENTED. ASSESSMENTS DOCUMENTED. VSS. PT DENIES PAIN, N/V/D. PT DECLINES Q2 TURNS. HOLLAND CATHETER IN PLACE. NO OTHER CONCERNS AT THIS TIME. WILL CONTINUE FOLLOWING POC.
[2019-04-12 07:30] VITALS: BP 127/66
[2019-04-12] MEDS ORDERED: CARDIZEM CD 18180 M3 PO (10:55)
[2019-04-12] MEDS ORDERED: ALPRAZOLAM 0.50.5 M1 PO (10:56)
[2019-04-12 11:30] VITALS: BP 131/81
[2019-04-12 11:45] VITALS: BP 127/66
--- NOTE | 2019-04-12 13:10 | NUR ---
ASSUMMED PT CARE AT APPROXIMATELY 0700. PT A&O X4. ASSESMSENT CHARTED. FALL PREAUTIONS IN PLACE. PT DENIES HAVING CHEST PAIN. PT DENIES HAVING SOB. PT DENIES HAVING ACUTE PAIN. PT DISCHARGING HOME C HOSPICE. PT AND PT'S FAMILY RECIEVED DISCHARGE EDUCATION. PT AND PT'S FAMILY STATED UNDERSTANDING AND DENIED HAVING FURTHER QUESTIONS. PT'S PORT-A CATH HEPARIN PACKED AND DE-ACCESSED. TELE DC. VITAL SIGNS STABLE. BLOOD SUGARS STABLE. PT TRANSPORTING HOME C HOLLAND CATH DUE TO THE HOLLAND CATH IS PROVIDING HER COMFORT. PT RECIEVING TRANSPORT HOME C AMBULANCE. HOSPICE MEETING PT AT HOME. PT COMFORTABLE IN BED. PT DENIES HAVING FURTHER CONCERNS.
== END 2019-04-12 14:20 | disposition hospice, home (50) | DRG 175 ==
LOC: 2N 19:00
PROVIDERS: Hospitalist; Nurse Practitioner; ADMIT Hospitalist
DX: I26.99 Other pulmonary embolism without acute cor pulmonale (principal); E43 Unspecified severe protein-calorie malnutrition; J18.9 Pneumonia, unspecified organism; J96.21 Acute and chronic respiratory failure with hypoxia; C34.92 Malignant neoplasm of unspecified part of left bronchus or lung; E16.2 Hypoglycemia, unspecified; I10 Essential (primary) hypertension; J43.9 Emphysema, unspecified; E78.5 Hyperlipidemia, unspecified; R00.0 Tachycardia, unspecified; R50.9 Fever, unspecified; K13.79 Other lesions of oral mucosa; E87.6 Hypokalemia; E83.42 Hypomagnesemia; G62.9 Polyneuropathy, unspecified; Z51.5 Encounter for palliative care; K12.30 Oral mucositis (ulcerative), unspecified; I48.91 Unspecified atrial fibrillation; B95.7 Other staphylococcus as the cause of diseases classified elsewhere; B00.1 Herpesviral vesicular dermatitis; Z68.23 Body mass index [BMI] 23.0-23.9, adult; Z87.891 Personal history of nicotine dependence; Z88.1 Allergy status to other antibiotic agents; Z85.6 Personal history of leukemia; Z79.01 Long term (current) use of anticoagulants; Z99.81 Dependence on supplemental oxygen; Z88.0 Allergy status to penicillin; Z88.2 Allergy status to sulfonamides; Z88.8 Allergy status to other drugs, medicaments and biological substances; Z79.2 Long term (current) use of antibiotics; Z79.899 Other long term (current) drug therapy; Z90.89 Acquired absence of other organs; Z90.710 Acquired absence of both cervix and uterus
CPT/HCPCS: 10081